=== PATIENT | female | born 1950 | race Caucasian/White ===

== ENCOUNTER → 2017-02-14 | Outpatient (CLI) | payer MEDICARE ==
--- NOTE | 2017-02-14 20:32 | BD ---
EXAMINATION TYPE: MG DEXA axial skeleton. DATE OF EXAM: 02/14/2017 7:34 AM COMPARISON: NONE CLINICAL HISTORY: 66-year-old female asymptomatic postmenopausal state Height: 65 Weight: 185.1 FRAX RISK QUESTIONS: Alcohol (3 or more units per day): no Family History (Parent hip fracture): yes-mother Glucocorticoids (More than 3mos): no (Ex: prednisone, prednisolone, methylprednisolone, dexamethasone, and hydrocortisone). History of Fracture in Adulthood: yes Secondary Osteoporosis: 1. Type 1 Diabetes: no 2. Hyperthyroidism: no 3. Menopause before 45: no 4. Malnutrition: no 5. Chronic liver disease: no Rheumatoid Arthritis: no Current Tobacco Use: no RISK FACTORS HISTORY OF: Hip Fracture (Right/Left): no Spine Fracture: no History of Wrist Fracture: no Surgery to Spine/Hip(right/left)/Wrist (right/left): no Family History of Osteoporosis: yes Active: yes Diet low in dairy products/other sources of calcium: no Postmenopausal woman: age 51 Lost more than 2 inches in height since high school: no Frequent falls: no Adrenal Insufficiency: no MEDICATIONS: Thyroid Medications: thyroid How Lon years Additional Medications: lisinopril, htz, potassium, simvastatin, calcium EXAM MEASUREMENTS: Bone mineral densitometry was performed using the [employer]. Bone mineral density as measured about the Lumbar spine is: ----- L1-L4(G/cm2): 1.345 T Score Values are as follows: ----- L2: 0.5 ----- L3: 2.0 ----- L4: 2.4 ----- L1-L4: 1.4 Bone mineral density has: increased 1.9 % since study of: 12.16.2014 Bone mineral density about the R hip (g/cm2): 0.930 Bone mineral density about the L hip (g/cm2): 0.960 T Score values are as follows: -----R Neck: -0.8 -----L Neck: -0.6 -----R Intertrochanter: -0.7 -----L Intertrochanter: -1.4 Bone mineral density has: increased 0.7 % since study of: 12.16.2014 IMPRESSION: Normal (Values between +1 and -1 indicate normal bone mass). Rescreen in 5 years. NOTE: T-SCORE=SD OF THE YOUNG ADULT MEAN.
--- NOTE | 2017-02-15 12:38 | MM ---
Reason for exam: screening (asymptomatic). Last mammogram was performed 1 year and 1 month ago. History: Patient is postmenopausal. Benign excisional biopsy of the left breast. Physical Findings: A clinical breast exam by your physician is recommended on an annual basis and results should be correlated with mammographic findings. MG Screening Mammo w CAD Bilateral CC and MLO view(s) were taken. Prior study comparison: January 26, 2016, bilateral MG screening mammo w CAD. December 16, 2014, bilateral MG screening mammo w CAD. There are scattered fibroglandular densities. Scattered benign round calcifications bilaterally. No significant changes when compared with prior studies. ASSESSMENT: Negative, BI-RAD 1 RECOMMENDATION: Routine screening mammogram of both breasts in 1 year.
== END | disposition home or self-care (01) ==
LOC: RADMAMWWP 07:29
PROVIDERS: ATTEND Family Medicine
DX: Z12.31 Encounter for screening mammogram for malignant neoplasm of breast (principal); Z78.0 Asymptomatic menopausal state
CPT/HCPCS: 77080; G0202

== ENCOUNTER → 2018-02-27 | Outpatient (CLI) | payer MEDICARE ==
--- NOTE | 2018-02-28 13:23 | MM ---
Reason for exam: screening (asymptomatic). Last mammogram was performed 1 year ago. History: Patient is postmenopausal. Benign excisional biopsy of the left breast. Physical Findings: A clinical breast exam by your physician is recommended on an annual basis and results should be correlated with mammographic findings. MG Screening Mammo w CAD Bilateral CC and MLO view(s) were taken. Prior study comparison: February 14, 2017, bilateral MG screening mammo w CAD. January 26, 2016, bilateral MG screening mammo w CAD. There are scattered fibroglandular densities. Finding: There are typically benign diffuse/scattered calcifications in both breasts. No suspicious abnormality. No significant changes in finding since February 14, 2017 and January 26, 2016. ASSESSMENT: Benign, BI-RAD 2 RECOMMENDATION: Routine screening mammogram of both breasts in 1 year.
== END | disposition home or self-care (01) ==
LOC: RADMAMWWP 07:05
PROVIDERS: ATTEND Family Medicine
DX: Z12.31 Encounter for screening mammogram for malignant neoplasm of breast (principal)
CPT/HCPCS: 77067

== ENCOUNTER → 2019-03-03 | Outpatient (CLI) | payer MEDICARE ==
--- NOTE | 2019-03-03 11:52 | BD ---
EXAMINATION TYPE: Axial Bone Density DATE OF EXAM: 03/03/2019 COMPARISON: 2017 CLINICAL HISTORY: asymptomatic menopause Height: 5'4 1/2 Weight: 164 FRAX RISK QUESTIONS: Family History (Parent hip fracture): y History of Fracture in Adulthood: y Secondary Osteoporosis: RISK FACTORS HISTORY OF: Family History of Osteoporosis: Y Postmenopausal woman: y If Premenopausal, do you have irregular periods: Take estrogen and/or progesterone medications: How long: Lost more than 2 inches in height since high school: MEDICATIONS: Thyroid Medications: Which medication: Levothyroxine How Lon years Additional Medications: blood pressure, potassium, cholesterol Additional History: EXAM MEASUREMENTS: Bone mineral densitometry was performed using the [employer] System. Bone mineral density as measured about the Lumbar spine is: ----- L1-L4(G/cm2): 1.337 T Score Values are as follows: ----- L2: 0.9 ----- L3: 1.5 ----- L4: 2.7 ----- L1-L4:1.3 Bone mineral density has: Decreased -0.2% since study of: 02/14/2017 Bone mineral density about the R hip (g/cm2): 0.877 Bone mineral density about the L hip (g/cm2): 0.944 T Score values are as follows: -----R Neck: -1.2 -----L Neck: -0.7 -----R Total: -1.1 -----L Total: -0.7 Bone mineral density has: Decreased -5.5% since study of: 02/14/2017 IMPRESSION: Osteopenia (T Score between -2.5 and -1). There is slightly increased risk of fracture and the patient may be considered for treatment. Re-Screen 2-5 years. NOTE: T-SCORE=SD OF THE YOUNG ADULT MEAN.
--- NOTE | 2019-03-04 10:22 | MM ---
Reason for exam: screening (asymptomatic). Last mammogram was performed 1 year ago. History: Patient is postmenopausal. Benign excisional biopsy of the left breast. Physical Findings: A clinical breast exam by your physician is recommended on an annual basis and results should be correlated with mammographic findings. MG Screening Mammo w CAD Bilateral CC and MLO view(s) were taken. Prior study comparison: February 27, 2018, bilateral MG screening mammo w CAD. February 14, 2017, bilateral MG screening mammo w CAD. There are scattered fibroglandular densities. Benign appearing bilateral calcifications. No suspicious abnormality. No significant changes when compared with prior studies. ASSESSMENT: Benign, BI-RAD 2 RECOMMENDATION: Routine screening mammogram of both breasts in 1 year.
== END | disposition home or self-care (01) ==
LOC: RADMAMWWP 08:00
PROVIDERS: ATTEND Family Medicine
DX: Z12.31 Encounter for screening mammogram for malignant neoplasm of breast (principal); M85.80 Other specified disorders of bone density and structure, unspecified site; Z78.0 Asymptomatic menopausal state
CPT/HCPCS: 77067; 77080

== ENCOUNTER 2020-03-08 17:46 | Inpatient (IN) | payer MEDICARE ==
[2020-03-08] MEDS ORDERED: SODIUM CHLORIDE 0.9% 1,000 ML IV STA (18:06)
[2020-03-08] MEDS ORDERED: ACETAMINOPHEN TAB 325 MG TAB PO STA (18:07)
[2020-03-08 18:47] LABS: Basophils # (A) 0.1 k/uL (0-0.2); Basophils % (A) 0 %; Eosinophils # (A) 0.2 k/uL (0-0.7); Eosinophils % (A) 1 %; HCT 36.4 % (34.0-46.0); Lymphocytes # (A) 0.9 k/uL (1.0-4.8); Lymphocytes % (A) 6 %; MCH 30.9 pg (25.0-35.0); MCV 93.6 fL (80.0-100.0); Mean Platelet Volume 7.3; Monocytes # (A) 0.6 k/uL (0-1.0); Monocytes % (A) 4 %; Neutrophils # (A) 13.4 k/uL (1.3-7.7); Neutrophils % (A) 87 %; Platelet Count 474 k/uL (150-450); RBC 3.89 m/uL (3.80-5.40); RDW 12.6 % (11.5-15.5); WBC 15.4 k/uL (3.8-10.6)
[2020-03-08 19:07] LABS: ALT 51 U/L (4-34); AST 44 U/L (14-36); African American GFR (CKD) >90 (>60 ml/min/1.73 sqM); Albumin 3.2 g/dL (3.5-5.0); Alkaline Phosphatase 102 U/L (38-126); Amylase 34 U/L (30-110); Anion Gap 10 mmol/L; Blood Urea Nitrogen 6 mg/dL (7-17); Carbon Dioxide 23 mmol/L (22-30); Chloride 98 mmol/L (98-107); Glucose 112 mg/dL (74-99); Non-African American GFR(CKD) >90 (>60 ml/min/1.73 sqM); Potassium 3.7 mmol/L (3.5-5.1); Sodium 131 mmol/L (137-145); Total Bilirubin 0.8 mg/dL (0.2-1.3)
[2020-03-08 19:18] LABS: Appearance,Urine Clear (Clear); Bilirubin,Urine Negative (Negative); Blood,Urine Small (Negative); Color,Urine Yellow; Glucose,Urine (UA) Negative (Negative); Hyaline Casts,Urine 1 /lpf (0-2); Ketones,Urine Negative (Negative); Leukocyte Esterase,Urine Small (Negative); Mucus,Urine Few /hpf; Nitrite,Urine Negative (Negative); PH, Urine 6.5 (5.0-8.0); Protein,Urine Trace (Negative); RBC,Urine 10 /hpf (0-5); Specific Gravity,Urine 1.013 (1.001-1.035); Squamous Epithelial Cell,Urine 3 /hpf (0-4); WBC,Urine 9 /hpf (0-5)
--- NOTE | 2020-03-08 19:27 | ED ---
Abdominal Pain HPI - General Source: patient, RN notes reviewed Mode of arrival: ambulatory Limitations: no limitations <Loi Toussaint - Last Filed: 03/08/20 20:10> <Georgia Lutz - Last Filed: 03/12/20 00:02> - General Chief Complaint: Abdominal Pain Stated Complaint: Diarrhea Time Seen by Provider: 03/08/20 17:58 - History of Present Illness Initial Comments: This is a 69-year-old female presents emergency Department chief complaint of abdominal pain. Patient states she is seen approximately 9 days ago in urgent care for UTI. Patient has been taken Ceftin here. Patient states that she is towards the end of her course and states that she's had increase abdominal pain, fever. She states it's right lower quadrant abdominal pain. She does have a history of diverticulosis. She had intermittent nausea, dry heaving and diarrhea denies any melena or hematochezia. Patient denies any chest pain, shortness breath, headache or dizziness. Patient is concerned about possible acute sinusitis. Patient states that her dysuria has resolved. (Loi Toussaint) - Related Data Home Medications Medication Instructions Recorded Confirmed Hydrochlorothiazide [Hydrodiuril] 50 mg PO DAILY@1500 02/18/14 03/08/20 Levothyroxine Sodium [Synthroid] 88 mcg PO DAILY 02/18/14 03/08/20 Lisinopril [Zestril] 5 mg PO DAILY@1500 02/18/14 03/08/20 Potassium Chloride 20 meq PO DAILY@1500 02/18/14 03/08/20 Simvastatin [Zocor] 20 mg PO HS 02/18/14 03/08/20 Aspirin 325 mg PO HS 03/08/20 03/08/20 Cefdinir [Omnicef] 300 mg PO Q12H 03/08/20 03/08/20 Allergies Allergy/AdvReac Type Severity Reaction Status Date / Time adhesive Allergy Rash/Hives Verified 03/08/20 19:25 Review of Systems ROS Other: All systems not noted in ROS Statement are negative. <Loi Toussaint - Last Filed: 03/08/20 20:10> ROS Other: All systems not noted in ROS Statement are negative. <Georgia Lutz - Last Filed: 03/12/20 00:02> ROS Statement: Those systems with pertinent positive or pertinent negative responses have been documented in the HPI. Past Medical History Past Medical History: Hyperlipidemia, Hypertension Additional Past Medical History / Comment(s): + HEPATITIS B History of Any Multi-Drug Resistant Organisms: None Reported Past Surgical History: Section, Tubal Ligation Additional Past Surgical History / Comment(s): breast cyst removed - left Past Anesthesia/Blood Transfusion Reactions: No Reported Reaction Smoking Status: Never smoker Past Alcohol Use History: None Reported Past Drug Use History: None Reported - Past Family History Mother Family Medical History: Cancer Father Family Medical History: Cancer <Loi Toussaint - Last Filed: 03/08/20 20:10> General Exam Limitations: no limitations General appearance: alert, in no apparent distress Head exam: Present: atraumatic, normocephalic, normal inspection Eye exam: Present: normal appearance, PERRL, EOMI. Absent: scleral icterus, conjunctival injection, periorbital swelling Neck exam: Present: normal inspection. Absent: tenderness, meningismus, lymphadenopathy Respiratory exam: Present: normal lung sounds bilaterally. Absent: respiratory distress, wheezes, rales, rhonchi, stridor Cardiovascular Exam: Present: regular rate, normal rhythm, normal heart sounds. Absent: systolic murmur, diastolic murmur, rubs, gallop, clicks GI/Abdominal exam: Present: soft, tenderness (Moderate right lower quadrant tenderness), normal bowel sounds. Absent: distended, guarding, rebound, rigid Back exam: Absent: CVA tenderness (R), CVA tenderness (L) Neurological exam: Present: alert, oriented X3, CN II-XII intact Skin exam: Present: warm, dry, intact, normal color. Absent: rash <Loi Toussaint - Last Filed: 03/08/20 20:10> Course Vital Signs 03/08/20 03/08/20 03/08/20 17:50 19:30 21:15 Temperature 100.8 F H 98.7 F 98.2 F Pulse Rate 99 75 80 Respiratory 18 16 16 Rate Blood Pressure 152/78 146/77 148/80 O2 Sat by Pulse 99 98 98 Oximetry Medical Decision Making - Lab Data Result diagrams: 03/08/20 18:23 03/08/20 18:23 <Loi Toussaint - Last Filed: 05/19/20 20:10> - Lab Data Result diagrams: 03/11/20 09:18 03/11/20 09:18 <Georgia Lutz - Last Filed: 03/12/20 00:02> - Medical Decision Making CT is obtained which shows Moderate inflammatory changes throughout the lower abdomen and pelvis suspicious for 7.7 cm debris-filled structure right mid pelvis with air fluid level worrisome for intrapelvic abscess. Labs does show mild crepitus, febrile. Patient was started on broad-spectrum antibiotics. Patient will be admitted for further evaluation and management. (Loi Toussaint) I was available for consultation in the emergency department. The history and p hysical exam were done by the midlevel provider. I was consulted for this patients care. I reviewed the case with the midlevel provider and based on their presentation of the patient, I agree with the assessment, medical decision making and plan of care as documented. I spoke with Dr. Cruz who accepted admission of the patient. Chart was dictated using [employer] dictation software. Attempts were made to correct any dictation errors however some typographical errors may persist. Patient was seen during a national state of emergency due to the Covid-19 pandemic. (Georgia Lutz) - Lab Data Lab Results 03/08/20 03/08/20 03/08/20 Range/Units 18:23 18:23 18:23 WBC 15.4 H (3.8-10.6) k/uL RBC 3.89 (3.80-5.40) m/uL Hgb 12.0 (11.4-16.0) gm/dL Hct 36.4 (34.0-46.0) % MCV 93.6 (80.0-100.0) fL MCH 30.9 (25.0-35.0) pg MCHC 33.0 (31.0-37.0) g/dL RDW 12.6 (11.5-15.5) % Plt Count 474 H (150-450) k/uL Neutrophils % 87 % Lymphocytes % 6 % Monocytes % 4 % Eosinophils % 1 % Basophils % 0 % Neutrophils # 13.4 H (1.3-7.7) k/uL Lymphocytes # 0.9 L (1.0-4.8) k/uL Monocytes # 0.6 (0-1.0) k/uL Eosinophils # 0.2 (0-0.7) k/uL Basophils # 0.1 (0-0.2) k/uL Sodium 131 L (137-145) mmol/L Potassium 3.7 (3.5-5.1) mmol/L Chloride 98 (98-107) mmol/L Carbon Dioxide 23 (22-30) mmol/L Anion Gap 10 mmol/L BUN 6 L (7-17) mg/dL Creatinine 0.55 (0.52-1.04) mg/dL Est GFR (CKD-EPI)AfAm >90 (>60 ml/min/1.73 sqM) Est GFR (CKD-EPI)NonAf >90 (>60 ml/min/1.73 sqM) Glucose 112 H (74-99) mg/dL Plasma Lactic Acid Darion (0.7-2.0) mmol/L Calcium 8.0 L (8.4-10.2) mg/dL Total Bilirubin 0.8 (0.2-1.3) mg/dL AST 44 H (14-36) U/L ALT 51 H (4-34) U/L Alkaline Phosphatase 102 (38-126) U/L Total Protein 6.0 L (6.3-8.2) g/dL Albumin 3.2 L (3.5-5.0) g/dL Amylase 34 (30-110) U/L Lipase 50 (23-300) U/L Urine Color Yellow Urine Appearance Clear (Clear) Urine pH 6.5 (5.0-8.0) Ur Specific [place] 1.013 (1.001-1.035) Urine Protein Trace H (Negative) Urine Glucose (UA) Negative (Negative) Urine Ketones Negative (Negative) Urine Blood Small H (Negative) Urine Nitrite Negative (Negative) Urine Bilirubin Negative (Negative) Urine Urobilinogen 3.0 (<2.0) mg/dL Ur Leukocyte Esterase Small H (Negative) Urine RBC 10 H (0-5) /hpf Urine WBC 9 H (0-5) /hpf Ur Squamous Epith Cells 3 (0-4) /hpf Hyaline Casts 1 (0-2) /lpf Urine Mucus Few H (None) /hpf Blood Type Confirm 03/08/20 03/08/20 Range/Units 18:23 18:23 WBC (3.8-10.6) k/uL RBC (3.80-5.40) m/uL Hgb (11.4-16.0) gm/dL Hct (34.0-46.0) % MCV (80.0-100.0) fL MCH (25.0-35.0) pg MCHC (31.0-37.0) g/dL RDW (11.5-15.5) % Plt Count (150-450) k/uL Neutrophils % % Lymphocytes % % Monocytes % % Eosinophils % % Basophils % % Neutrophils # (1.3-7.7) k/uL Lymphocytes # (1.0-4.8) k/uL Monocytes # (0-1.0) k/uL Eosinophils # (0-0.7) k/uL Basophils # (0-0.2) k/uL Sodium (137-145) mmol/L Potassium (3.5-5.1) mmol/L Chloride (98-107) mmol/L Carbon Dioxide (22-30) mmol/L Anion Gap mmol/L BUN (7-17) mg/dL Creatinine (0.52-1.04) mg/dL Est GFR (CKD-EPI)AfAm (>60 ml/min/1.73 sqM) Est GFR (CKD-EPI)NonAf (>60 ml/min/1.73 sqM) Glucose (74-99) mg/dL Plasma Lactic Acid [place] 1.0 (0.7-2.0) mmol/L Calcium (8.4-10.2) mg/dL Total Bilirubin (0.2-1.3) mg/dL AST (14-36) U/L ALT (4-34) U/L Alkaline Phosphatase (38-126) U/L Total Protein (6.3-8.2) g/dL Albumin (3.5-5.0) g/dL Amylase (30-110) U/L Lipase (23-300) U/L Urine Color Urine Appearance (Clear) Urine pH (5.0-8.0) Ur Specific [place] (1.001-1.035) Urine Protein (Negative) Urine Glucose (UA) (Negative) Urine Ketones (Negative) Urine Blood (Negative) Urine Nitrite (Negative) Urine Bilirubin (Negative) Urine Urobilinogen (<2.0) mg/dL Ur Leukocyte Esterase (Negative) Urine RBC (0-5) /hpf Urine WBC (0-5) /hpf Ur Squamous Epith Cells (0-4) /hpf Hyaline Casts (0-2) /lpf Urine Mucus (None) /hpf Blood Type Confirm B Positive Disposition <Loi Toussaint - Last Filed: 03/08/20 20:10> <Georgia Lutz - Last Filed: 03/12/20 00:02> Clinical Impression: Intra-abdominal abscess, Abdominal pain Disposition: ADMITTED IP TO THIS HOSP Condition: Fair
--- NOTE | 2020-03-08 20:09 | CT ---
EXAMINATION TYPE: CT abdomen pelvis w con DATE OF EXAM: 03/08/2020 HISTORY: Generalized pain with diarrhea. CT DLP: 911.8mGycm Automated Exposure Control for Dose Reduction was Utilized. CONTRAST: CT scan of the abdomen and pelvis is performed without oral but with IV Contrast, patient injected wi th 100 mL of Isovue 300. COMPARISON: None. FINDINGS: LUNG BASES: Trace right pleural effusion with associated right basilar compressive atelectasis and/or limited consolidation. Compressive atelectasis left lung base just above the diaphragm also present. LIVER/GB: Liver low dense relative to spleen suggesting diffuse fatty infiltration. PANCREAS: No significant abnormality is seen. SPLEEN: No significant abnormality is seen. ADRENALS: No significant abnormality is seen. KIDNEYS: Slight asymmetric diminished size to right kidney. There is symmetric cortical medullary upt tadeo and excretion without hydronephrosis seen bilaterally. Urinary bladder mildly distended extending anteriorly to left of midline. BOWEL: Suboptimal evaluation of bowel without enteric contrast. No suspicious small or large bowel di latation in the upper to mid abdomen. Working backwards there is mild wall thickening and poor disten tion of majority of colon up to level of low-lying cecum in the right pelvis. Terminal ileum thought within normal limits coronal image 38 above a dilated structure with air-fluid level and internal gabby ris. There is surrounding soft tissue suspected normal cecum and adjacent small bowel loops being com pressed by this prominent debris filled lesion with air-fluid level. This measures roughly 7.7 x 7.4 x 7.7 cm segment 63 and coronal image 43. Cannot exclude smaller adjacent fluid collections as it is impossible to differentiate from adjacent bowel loops. There is moderate well-defined fluid and fat s tranding throughout the lower abdomen and pelvis. There is air-fluid level in prominent mildly dilate d small bowel loop in the left lower abdomen/upper pelvis measuring up to 3.6 cm in diameter coronal image 39 for reference. UTERUS/ADNEXA: Poor visualization of uterus LYMPH NODES: No greater than 1cm abdominal or pelvic lymph nodes are appreciated. OSSEOUS STRUCTURES: Mild multilevel disc space narrowing and spurring. Facet arthropathy mid to lower lumbar levels. OTHER: No significant additional abnormality is seen. IMPRESSION: Suboptimal study due to lack of enteric contrast. Overall nonspecific but likely nonobstr uctive bowel gas pattern. There is evidence of wijz-da-hibalhav inflammatory change through the lower abdomen and pelvis. There is suspicious 7.7 cm debris-filled structure right mid pelvis with air flu id level worrisome for intrapelvic abscess. Etiology uncertain. No definitive free air. Cannot exclud e smaller adjacent abscesses. Correlate clinically. Further investigation with CT with oral contrast may be beneficial.
[2020-03-08] MEDS ORDERED: PIPERACILLIN-TAZOBACTAM 3.375 GM in SODIUM CHLORIDE 0.9% 100 ML IVPB STA (20:10)
[2020-03-08] MEDS ORDERED: NALOXONE 0.4 MG/ML 1 ML VIAL IV PRN (20:16)
[2020-03-08] MEDS ORDERED: ONDANSETRON 4 MG/2 ML VIAL IVP PRN (20:16)
[2020-03-08] MEDS: SODIUM CHLORIDE 0.9% 1,000 ML IV SCH (21:06)
[2020-03-09] MEDS ORDERED: LACTATED RINGERS 1,000 ML IV ONE ×4 (00:55→14:59)
[2020-03-09] MEDS: LEVOTHYROXINE 88 MCG TAB PO SCH (05:17)
[2020-03-09] MEDS: SODIUM CHLORIDE 0.9% 1,000 ML IV SCH ×3 (05:26→18:58)
[2020-03-09] MEDS: PIPERACILLIN-TAZOBACTAM 3.375 GM in SODIUM CHLORIDE 0.9% 100 ML IVPB SCH ×3 (07:46→23:16)
--- NOTE | 2020-03-09 11:18 | P.GSHP ---
History of Present Illness H&P Date: 03/09/20 CHIEF COMPLAINT: Abdominal pain HISTORY OF PRESENT ILLNESS: 69-year-old female who presented to emergency room with a chief complaint of abdominal pain. Patient reports she has a history of diverticulosis/diverticulitis. She reports she began having abdominal pain about 2 or 3 weeks ago. Pain is in the lower abdomen, right greater than left. She currently denies nausea or vomiting. PAST MEDICAL HISTORY: See list. PAST SURGICAL HISTORY: See list. SOCIAL HISTORY: No illicit drug use. REVIEW OF SYSTEMS: CONSTITUTIONAL: Denies fever or chills. HEENT: Denies blurred vision, vision changes, or eye pain. Denies hemoptysis CARDIOVASCULAR: Denies chest pain or pressure. RESPIRATORY: No shortness of breath. GASTROINTESTINAL: Refer to [facility] for pertinent findings HEMATOLOGIC: Denies bleeding disorders. GENITOURINARY: Denies any blood in urine. SKIN: Denies pruitis. Denies rash. PHYSICAL EXAM: VITAL SIGNS: Reviewed. GENERAL: Well-developed in no acute distress. HEENT: No sclera icterus. Extraocular movements grossly intact. Moist buccal mucosa. Head is atraumatic, normocephalic. ABDOMEN: Soft. Nondistended. Tenderness upon palpation of lower mid and right quadrants. NEUROLOGIC: Alert and oriented. Cranial nerves II through XII grossly intact. LABORATORY DATA: W BC 15.1. Hemoglobin 12.0. Platelet count 474. IMAGING: CT abdomen and pelvis: Overall nonspecific but likely nonobstructive bowel gas pattern. Evidence of mild to moderate inflammatory changes throughout the lower abdomen and pelvis. Suspicious 7.7 cm debris-filled structure right mid pelvis with air-fluid level increased worrisome of intrapelvic abscess. No definite free air. ASSESSMENT: 1. Abdominal pain 2. Intrapelvic abscess, suspect secondary to diverticulitis PLAN: -NPO. Continue IVF -Monitor WBC. Continue antibiotics. Consult infectious disease -Patient scheduled for exploratory laparotomy, drainage of pelvic abscess, possible colectomy, possible colostomy today with Dr. Cruz Nurse practitioner note has been reviewed by physician. Signing provider agrees with the documented findings, assessment, and plan of care. Past Medical History Past Medical History: Hyperlipidemia, Hypertension Additional Past Medical History / Comment(s): + HEPATITIS B History of Any Multi-Drug Resistant Organisms: None Reported Past Surgical History: Section, Tonsillectomy, Tubal Ligation Additional Past Surgical History / Comment(s): Breast cyst removed - left Past Anesthesia/Blood Transfusion Reactions: No Reported Reaction Past Psychological History: No Psychological Hx Reported Smoking Status: Never smoker Past Alcohol Use History: None Reported Past Drug Use History: None Reported - Past Family History Mother Family Medical History: Cancer Father Family Medical History: Cancer Medications and Allergies Home Medications Medication Instructions Recorded Confirmed Type Hydrochlorothiazide [Hydrodiuril] 50 mg PO DAILY@1500 02/18/14 03/08/20 History Levothyroxine Sodium [Synthroid] 88 mcg PO DAILY 02/18/14 03/08/20 History Lisinopril [Zestril] 5 mg PO DAILY@1500 02/18/14 03/08/20 History Potassium Chloride 20 meq PO DAILY@1500 02/18/14 03/08/20 History Simvastatin [Zocor] 20 mg PO HS 02/18/14 03/08/20 History Aspirin 325 mg PO HS 03/08/20 03/08/20 History Cefdinir [Omnicef] 300 mg PO Q12H 03/08/20 03/08/20 History Allergies Allergy/AdvReac Type Severity Reaction Status Date / Time adhesive Allergy Rash/Hives Verified 03/08/20 19:25 Surgical - Exam Vital Signs Temp Pulse Resp BP Pulse Ox 100.8 F H 99 18 152/78 99 03/08/20 17:50 03/08/20 17:50 03/08/20 17:50 03/08/20 17:50 03/08/20 17:50 Results - Labs 03/08/20 18:23 03/08/20 18:23 Abnormal Lab Results - Last 24 Hours (Table) 03/08/20 03/08/20 03/08/20 Range/Units 18:23 18:23 18:23 WBC 15.4 H (3.8-10.6) k/uL Plt Count 474 H (150-450) k/uL Neutrophils # 13.4 H (1.3-7.7) k/uL Lymphocytes # 0.9 L (1.0-4.8) k/uL Sodium 131 L (137-145) mmol/L BUN 6 L (7-17) mg/dL Glucose 112 H (74-99) mg/dL Calcium 8.0 L (8.4-10.2) mg/dL AST 44 H (14-36) U/L ALT 51 H (4-34) U/L Total Protein 6.0 L (6.3-8.2) g/dL Albumin 3.2 L (3.5-5.0) g/dL Urine Protein Trace H (Negative) Urine Blood Small H (Negative) Ur Leukocyte Esterase Small H (Negative) Urine RBC 10 H (0-5) /hpf Urine WBC 9 H (0-5) /hpf Urine Mucus Few H (None) /hpf Diabetes panel 03/08/20 Range/Units 18:23 Sodium 131 L (137-145) mmol/L Potassium 3.7 (3.5-5.1) mmol/L Chloride 98 (98-107) mmol/L Carbon Dioxide 23 (22-30) mmol/L BUN 6 L (7-17) mg/dL Creatinine 0.55 (0.52-1.04) mg/dL Glucose 112 H (74-99) mg/dL Calcium 8.0 L (8.4-10.2) mg/dL AST 44 H (14-36) U/L ALT 51 H (4-34) U/L Alkaline Phosphatase 102 (38-126) U/L Total Protein 6.0 L (6.3-8.2) g/dL Albumin 3.2 L (3.5-5.0) g/dL Calcium panel 03/08/20 Range/Units 18:23 Calcium 8.0 L (8.4-10.2) mg/dL Albumin 3.2 L (3.5-5.0) g/dL Pituitary panel 03/08/20 Range/Units 18:23 Sodium 131 L (137-145) mmol/L Potassium 3.7 (3.5-5.1) mmol/L Chloride 98 (98-107) mmol/L Carbon Dioxide 23 (22-30) mmol/L BUN 6 L (7-17) mg/dL Creatinine 0.55 (0.52-1.04) mg/dL Glucose 112 H (74-99) mg/dL Calcium 8.0 L (8.4-10.2) mg/dL Adrenal panel 03/08/20 Range/Units 18:23 Sodium 131 L (137-145) mmol/L Potassium 3.7 (3.5-5.1) mmol/L Chloride 98 (98-107) mmol/L Carbon Dioxide 23 (22-30) mmol/L BUN 6 L (7-17) mg/dL Creatinine 0.55 (0.52-1.04) mg/dL Glucose 112 H (74-99) mg/dL Calcium 8.0 L (8.4-10.2) mg/dL Total Bilirubin 0.8 (0.2-1.3) mg/dL AST 44 H (14-36) U/L ALT 51 H (4-34) U/L Alkaline Phosphatase 102 (38-126) U/L Total Protein 6.0 L (6.3-8.2) g/dL Albumin 3.2 L (3.5-5.0) g/dL
[2020-03-09] MEDS ORDERED: ONDANSETRON 4 MG/2 ML VIAL IVP ONE (12:23)
[2020-03-09] MEDS ORDERED: DEXAMETHASONE SOD PHOSPHATE 10 MG/ML 1 ML VIAL IV ONE (12:24)
[2020-03-09] MEDS ORDERED: LIDOCAINE 1% INJ 10MG/ML (20 ML MDV) ONE (13:50)
[2020-03-09] MEDS: HEPARIN SODIUM,PORCINE 5,000 UNIT/ML 1 ML VIAL SQ SCH ×2 (13:50→23:15)
[2020-03-09] MEDS ORDERED: HYDROmorphone (PF) 1 MG/ML ONE (13:50)
[2020-03-09] MEDS ORDERED: fentaNYL (PF) 50 MCG/ML 2 ML AMP ONE (13:50)
[2020-03-09] MEDS ORDERED: GLYCOPYRROLATE 0.2 MG/ML 2 ML VIAL ONE (13:50)
[2020-03-09] MEDS ORDERED: NEOSTIGMINE 1 MG/ML 10 ML VIAL ONE (13:50)
[2020-03-09] MEDS ORDERED: PROPOFOL 10 MG/ML 20 ML VIAL IV ONE (13:50)
[2020-03-09] MEDS ORDERED: SUCCINYLCHOLINE CHLORIDE 100 MG/5 ML SYR IV ONE (13:50)
[2020-03-09] MEDS ORDERED: MIDAZOLAM 2 MG/2 ML VIAL ONE (13:50)
[2020-03-09] MEDS ORDERED: ROCURONIUM BROMIDE 10 MG/ML 5 ML VIAL IV ONE (13:50)
--- NOTE | 2020-03-09 15:22 | P.OP ---
Date of Procedure: 03/09/20 Preoperative Diagnosis: Pelvic abscess Postoperative Diagnosis: Pelvic abscess adjacent to cecum and terminal ileum, questionable appendicitis Procedure(s) Performed: Ileocolectomy Drainage of pelvic Culture pelvic abscess Anesthesia: DHIRAJ Surgeon: Jerad Cruz Estimated Blood Loss (ml): 100 Pathology: other (Ileocolectomy, abscess culture) Condition: stable Disposition: PACU Description of Procedure: The patient's placed on the operative table in supine position. She received general anesthesia. Her abdomen was prepped and draped usual sterile fashion. There was entered through a low midline incision. Upon entering the peritoneal cavity there was a large inflammatory mass in the pelvis the right side. The small bowel was adherent to the mass. The small bowel adhesions were lysed. The mass was entered and it was a large pelvic abscess. There was creamy white pus within the abscess. This was cultured. And irrigated there is approximately 200 mL of pus. At this point the abscess cavities examined. Adherent to the cecum and terminal ileum suggestive of a chronic appendicitis. At this point approximately 20 minutes of operative time used to lyse adhesions to the small bowel in the pelvis with sharp dissection. The right colon was mobilized. The right colon was then transected with a GI stapler. And then the ileum was transected with a GI stapler. Using Enseal device the mesentery the bowel was divided. A [id number] functional end-to-end staple anastomosis was created using the WOODY and TA stapler. A 3-0 GI silk sutures as a crotch stitch. The abdomen was irrigated is no bleeding seen. A GARCÍA drains placed in the right pelvic fossa and brought out through a stab incision abdominal wall. The fascia is closed loop #1 PDS suture. Skin was loosely closed. There were several Telfa kaleb placed the wound. Sterile dressing applied. Patient top she will was sent to recovery in stable condition.
[2020-03-09] MEDS: HYDROmorphone 1 MG/ML 1 ML SYRINGE IVP ONE ×2 (15:35→15:44)
--- NOTE | 2020-03-09 16:23 | P.CONS ---
History of Present Illness - Reason for Consult Consult date: 03/09/20 Medical management Requesting physician: Jerad Cruz - Chief Complaint Abdominal pain - History of Present Illness Consultation: Patient is seen by me this morning. This is a pleasant 69-year-old patient of Dr. Wei. Chronic stable medical conditions include hyperlipidemia, hypertension, hypothyroid. Patient was treated for hepatitis B in the past. For 2 weeks patient been having right lower quadrant pain progressively getting worse. She was treated by her PCP for UTI in the meantime. Patient started having fever and chills. Nausea. The pain was intermittently getting worse. Predominantly the right lower quadrant. Presented to the ER. Computed yenifer ography scan the ER showed a probable abscess. Patient's earlier seen by Dr. Cruz from general surgery. This is going down for surgery this afternoon. Patient otherwise rather active and no cardiac history. Denies any chest pain or shortness of breath. Good exercise tolerance. Review of systems: GEN.: Tired, fever, chills EYES: None HEENT: None NECK: None RESPIRATORY: None CARDIOVASCULAR: None GASTROINTESTINAL: As above GENITOURINARY: None MUSCULOSKELETAL: Joint pains LYMPHATICS: None HEMATOLOGICAL: None PSYCHIATRY: None NEUROLOGICAL: None Past medical history to include: Hypertension, hyperlipidemia, hypothyroid, osteoarthritis, rosacea, hepatitis B that was treated Social history: Does not smoke or drink" alcohol. Lives with her son.. Family history: Cancer Physical examination: VITAL SIGNS: 100.8, 99, 18, 150-78, 99% on room air GENERAL: BMI 19.4, laying in bed, awake a bit uncomfortable. EYES: Pupils equal. Conjunctiva normal. HEENT: External appearance of nose and ears normal, oral cavity grossly normal. NECK: JVD not raised; masses not palpable. HEART: First and second heart sounds are normal; no edema. LUNGS: Respiratory rate normal; clear to auscultation. ABDOMEN: Soft, right lower quadrant tenderness, no guarding or rigidity, liver spleen not palpable, no masses palpable MUSCULOSKELETAL-evidence of OA especially in the hands and knees. PSYCH: Alert and oriented x3; mood and affect normal. NEUROLOGICAL: Cranial nerves grossly intact; no facial asymmetry, power and sensation grossly intact. LYMPHATICS: No lymph nodes palpable in the axilla and neck INVESTIGATIONS, reviewed in the clinical context: White count 15.4 hemoglobin 12 platelets 474 potassium 3.7 creatinine 6 AST 44 ALT 51 COVID-19 PCR-not detected Computed tomography scan of the abdomen and pelvis-suspected abscess 0.7 X 7.4 X 7.7 CM. SHOWING MODERATE WELL-DEFINED FLUID AND FAT SURROUNDING. ASSESSMENT: -This is a patient presents with 2 weeks of progressive pain in the right lower quadrant fever chills nausea and a white count. Computed tomography scan is showing an abscess in that area of a fair sized. Patient be taken down to the OR this afternoon. -Preoperative cardiovascular assessment-patient is a good exercise tolerance with no cardiac symptoms. From a patient's standpoint is a low risk with a moderate risk surgery. With no medical contact indications. -Hyperlipidemia -Essential hypertension -Hypothyroid - Plan: Care was discussed with the patient. Questions were answered. Home medications resumed. Subcu heparin for DVT prophylaxis. IV Zosyn has been started getting IV fluids. Thank you Dr. Cruz Past Medical History Past Medical History: Hyperlipidemia, Hypertension Additional Past Medical History / Comment(s): + HEPATITIS B History of Any Multi-Drug Resistant Organisms: None Reported Past Surgical History: Section, Tonsillectomy, Tubal Ligation Additional Past Surgical History / Comment(s): Breast cyst removed - left Past Anesthesia/Blood Transfusion Reactions: No Reported Reaction Past Psychological History: No Psychological Hx Reported Smoking Status: Never smoker Past Alcohol Use History: None Reported Past Drug Use History: None Reported - Past Family History Mother Family Medical History: Cancer Father Family Medical History: Cancer Medications and Allergies Home Medications Medication Instructions Recorded Confirmed Type Hydrochlorothiazide [Hydrodiuril] 50 mg PO DAILY@1500 02/18/14 03/08/20 History Levothyroxine Sodium [Synthroid] 88 mcg PO DAILY 02/18/14 03/08/20 History Lisinopril [Zestril] 5 mg PO DAILY@1500 02/18/14 03/08/20 History Potassium Chloride 20 meq PO DAILY@1500 02/18/14 03/08/20 History Simvastatin [Zocor] 20 mg PO HS 02/18/14 03/08/20 History Aspirin 325 mg PO HS 03/08/20 03/08/20 History Cefdinir [Omnicef] 300 mg PO Q12H 03/08/20 03/08/20 History Allergies Allergy/AdvReac Type Severity Reaction Status Date / Time adhesive Allergy Rash/Hives Verified 03/08/20 19:25 Physical Exam Vitals: Vital Signs Temp Pulse Pulse Resp BP BP Pulse Ox 03/09/20 07:00 99.0 F 82 15 219/67 94 L 03/09/20 02:22 98.3 F 85 18 132/81 91 L 03/08/20 21:34 98.5 F 77 18 119/71 95 03/08/20 21:15 98.2 F 80 16 148/80 98 03/08/20 19:30 98.7 F 75 16 146/77 98 03/08/20 17:50 100.8 F H 99 18 152/78 99 Intake and Output 03/08/20 03/09/20 03/09/20 22:59 06:59 14:59 Other: Voiding Method Toilet Toilet Weight 54.5 kg Results CBC & Chem 7: 03/08/20 18:23 03/08/20 18:23 Labs: Abnormal Lab Results - Last 24 Hours (Table) 03/08/20 03/08/20 03/08/20 Range/Units 18:23 18:23 18:23 WBC 15.4 H (3.8-10.6) k/uL Plt Count 474 H (150-450) k/uL Neutrophils # 13.4 H (1.3-7.7) k/uL Lymphocytes # 0.9 L (1.0-4.8) k/uL Sodium 131 L (137-145) mmol/L BUN 6 L (7-17) mg/dL Glucose 112 H (74-99) mg/dL Calcium 8.0 L (8.4-10.2) mg/dL AST 44 H (14-36) U/L ALT 51 H (4-34) U/L Total Protein 6.0 L (6.3-8.2) g/dL Albumin 3.2 L (3.5-5.0) g/dL Urine Protein Trace H (Negative) Urine Blood Small H (Negative) Ur Leukocyte Esterase Small H (Negative) Urine RBC 10 H (0-5) /hpf Urine WBC 9 H (0-5) /hpf Urine Mucus Few H (None) /hpf
[2020-03-09] MEDS: HYDROCHLOROTHIAZIDE 50 MG TAB PO SCH (16:34)
[2020-03-09] MEDS: LISINOPRIL 5 MG TAB PO SCH (16:35)
[2020-03-09] MEDS: POTASSIUM CHLORIDE ER 20 MEQ TAB.ER PO SCH (16:35)
[2020-03-09] MEDS: HYDROmorphone 0.5 MG/0.5 ML SYRINGE IVP PRN ×2 (16:36→19:52)
[2020-03-09] MEDS: ATORVASTATIN 10 MG TAB PO SCH (19:52)
[2020-03-09] MEDS: ASPIRIN 325 MG TAB PO SCH (19:52)
[2020-03-09 20:34] LABS: Glucose,Whole Blood 125 mg/dL (75-99)
[2020-03-09] MEDS: LACTATED RINGERS 1,000 ML IV SCH (23:41)
--- NOTE | 2020-03-10 00:05 | P.CONS ---
History of Present Illness - Reason for Consult Consult date: 03/09/20 pelvic abscess Requesting physician: Jerad Cruz - Chief Complaint abd pain x 3 weeks - History of Present Illness Patient is a 69-year-old female presenting to the ER at [facility] last evening with chief complaints of abdominal pain, patient mentioned that she has been dealing with the pain for almost 3 weeks now and has been treated as UTI in the outpatient setting by her primary care physician however for the last few days patient pain has been getting worse patient pain is mostly right lower abdominal area describing to be sharp intensity almost on her friend but that she was into the hospital with no radiation she has associated nausea vomiting and diarrhea and some chills with the symptom the patient was evaluated by the ER physician on arrival to the ER patient did have a fever 100.8 F patient did have a white count of 15.4 there was evidence of mild elevated urine although significantly positive COVID-19 testing was negative patient did have a CT of abdominal pelvis which did show mild to moderate inflammatory changes thro ughout the lower abdominal pelvis and concern for intrapelvic abscess subsequently patient has been admitted to hospital was evaluated by general surgery she has been taken to the OR and the patient status post laparotomy with ileocolectomy and drainage of the pelvic abscess and culture patient has been started on Zosyn infectious disease was consulted for further management of antibiotic therapy. Review of Systems Positive point has been mentioned in HPI rest of the systems are negative Past Medical History Past Medical History: Hyperlipidemia, Hypertension Additional Past Medical History / Comment(s): + HEPATITIS B History of Any Multi-Drug Resistant Organisms: None Reported Past Surgical History: Section, Tonsillectomy, Tubal Ligation Additional Past Surgical History / Comment(s): Breast cyst removed - left Past Anesthesia/Blood Transfusion Reactions: No Reported Reaction Past Psychological History: No Psychological Hx Reported Smoking Status: Never smoker Past Alcohol Use History: None Reported Past Drug Use History: None Reported - Past Family History Mother Family Medical History: Cancer Father Family Medical History: Cancer Medications and Allergies Home Medications Medication Instructions Recorded Confirmed Type Hydrochlorothiazide [Hydrodiuril] 50 mg PO DAILY@1500 02/18/14 03/08/20 History Levothyroxine Sodium [Synthroid] 88 mcg PO DAILY 02/18/14 03/08/20 History Lisinopril [Zestril] 5 mg PO DAILY@1500 02/18/14 03/08/20 History Potassium Chloride 20 meq PO DAILY@1500 02/18/14 03/08/20 History Simvastatin [Zocor] 20 mg PO HS 02/18/14 03/08/20 History Aspirin 325 mg PO HS 03/08/20 03/08/20 History Cefdinir [Omnicef] 300 mg PO Q12H 03/08/20 03/08/20 History Allergies Allergy/AdvReac Type Severity Reaction Status Date / Time adhesive Allergy Rash/Hives Verified 03/08/20 19:25 Physical Exam Vitals: Vital Signs Temp Pulse Pulse Resp BP BP Pulse Ox 03/09/20 12:21 99.2 F 97 16 150/72 94 L 03/09/20 07:00 99.0 F 82 15 219/67 94 L 03/09/20 02:22 98.3 F 85 18 132/81 91 L 03/08/20 21:34 98.5 F 77 18 119/71 95 03/08/20 21:15 98.2 F 80 16 148/80 98 03/08/20 19:30 98.7 F 75 16 146/77 98 03/08/20 17:50 100.8 F H 99 18 152/78 99 Intake and Output 03/08/20 03/09/20 03/09/20 22:59 06:59 14:59 Other: Voiding Method Toilet Toilet Weight 54.5 kg GENERAL DESCRIPTION: Elderly female lying in bed, no distress. No tachypnea or accessory muscle of respiration use. HEENT: Shows Pallor , no scleral icterus. Oral mucous membrane is dry. NECK: Trachea central, no thyromegaly. LUNGS: Unlabored breathing. Clear to auscultation anteriorly. No wheeze or crackle. HEART: S1, S2, regular rate and rhythm. ABDOMEN: Soft, mild distention and her lower quadrant tenderness, no guarding or rigidity EXTREMITIES: No edema of feet. SKIN: No rash, no masses palpable. NEUROLOGICAL: The patient is awake, alert, oriented x3, mood and affect normal. Results CBC & Chem 7: 03/08/20 18:23 03/08/20 18:23 Labs: Abnormal Lab Results - Last 24 Hours (Table) 03/08/20 03/08/20 03/08/20 Range/Units 18:23 18:23 18:23 WBC 15.4 H (3.8-10.6) k/uL Plt Count 474 H (150-450) k/uL Neutrophils # 13.4 H (1.3-7.7) k/uL Lymphocytes # 0.9 L (1.0-4.8) k/uL Sodium 131 L (137-145) mmol/L BUN 6 L (7-17) mg/dL Glucose 112 H (74-99) mg/dL Calcium 8.0 L (8.4-10.2) mg/dL AST 44 H (14-36) U/L ALT 51 H (4-34) U/L Total Protein 6.0 L (6.3-8.2) g/dL Albumin 3.2 L (3.5-5.0) g/dL Urine Protein Trace H (Negative) Urine Blood Small H (Negative) Ur Leukocyte Esterase Small H (Negative) Urine RBC 10 H (0-5) /hpf Urine WBC 9 H (0-5) /hpf Urine Mucus Few H (None) /hpf Assessment and Plan Assessment: -patient presented hospital with sepsis in this patient who did have a fever elevated white count source is intra-abdominal abscess with concern for possible ruptured appendicitis in this patient status post laparotomy ileocolectomy drainage of the abscess and deep cultures will need to call for they have resistant gram-negative as the patient has been exposed antibiotic with most few weeks for presumed UTI (1) Sepsis Current Visit: Yes Status: Acute Code(s): A41.9 - SEPSIS, UNSPECIFIED ORGANISM SNOMED Code(s): 86858468 (2) Intra-abdominal abscess Current Visit: Yes Status: Acute Code(s): K65.1 - PERITONEAL ABSCESS SNOMED Code(s): 23436464 Plan: 1-Zosyn 3.375 g every 8 hours 2-gentle IV fluid We will follow on clinical condition and cultures to further adjust medication if needed Thank you for this consultation we will follow the patient along with you Time with Patient: Greater than 30
[2020-03-10] MEDS: SODIUM CHLORIDE 0.9% 1,000 ML IV SCH ×6 (00:49→23:27)
[2020-03-10] MEDS: HYDROmorphone 0.5 MG/0.5 ML SYRINGE IVP PRN ×6 (00:49→23:27)
[2020-03-10] MEDS: LACTATED RINGERS 1,000 ML IV SCH (00:54)
[2020-03-10] MEDS: LEVOTHYROXINE 88 MCG TAB PO SCH (05:32)
[2020-03-10 07:37] LABS: ALT 31 U/L (4-34); AST 26 U/L (14-36); African American GFR (CKD) >90 (>60 ml/min/1.73 sqM); Albumin 2.4 g/dL (3.5-5.0); Alkaline Phosphatase 76 U/L (38-126); Anion Gap 7 mmol/L; Blood Urea Nitrogen 11 mg/dL (7-17); Calcium 7.7 mg/dL (8.4-10.2); Carbon Dioxide 23 mmol/L (22-30); Chloride 104 mmol/L (98-107); Glucose 105 mg/dL (74-99); Non-African American GFR(CKD) >90 (>60 ml/min/1.73 sqM); Potassium 3.9 mmol/L (3.5-5.1); Sodium 134 mmol/L (137-145); Total Bilirubin 0.5 mg/dL (0.2-1.3); Total Protein 4.9 g/dL (6.3-8.2)
[2020-03-10 07:50] LABS: HCT 31.6 % (34.0-46.0); HGB 10.2 gm/dL (11.4-16.0); Hypochromasia Slight; MCH 31.2 pg (25.0-35.0); MCHC 32.3 g/dL (31.0-37.0); MCV 96.4 fL (80.0-100.0); Mean Platelet Volume 7.5; Platelet Count 528 k/uL (150-450); RBC 3.27 m/uL (3.80-5.40); RDW 13.1 % (11.5-15.5); WBC 14.6 k/uL (3.8-10.6)
[2020-03-10] MEDS: PANTOPRAZOLE 40 MG/10 ML VIAL IVP SCH (08:03)
[2020-03-10] MEDS: HEPARIN SODIUM,PORCINE 5,000 UNIT/ML 1 ML VIAL SQ SCH ×3 (08:03→23:27)
[2020-03-10] MEDS: PIPERACILLIN-TAZOBACTAM 3.375 GM in SODIUM CHLORIDE 0.9% 100 ML IVPB SCH ×3 (08:03→23:27)
[2020-03-10 10:56] LABS: Band Neutrophils % 1 %; Lymphocytes # (M) 0.88 k/uL (1.0-4.8); Monocytes # (M) 0.58 k/uL (0-1.0); Neutrophils % (M) 89 %; Nucleated Red Blood Cells 0 /100 WBC (0-0); Total Cells Counted 100
--- NOTE | 2020-03-10 13:38 | P.PN ---
Subjective Progress Note Date: 03/10/20 CHIEF COMPLAINT: Abdominal pain HISTORY OF PRESENT ILLNESS: Patient is status post drainage of pelvic abscess and ileocolectomy. PHYSICAL EXAM: VITAL SIGNS: Reviewed. GENERAL: Well-developed in no acute distress. HEENT: No sclera icterus. Extraocular movements grossly intact. Moist buccal mucosa. Head is atraumatic, normocephalic. ABDOMEN: Soft. Nondistended. Dressing clean dry and intact. GARCÍA drain to right lower quadrant with serosanguineous drainage. NEUROLOGIC: Alert and oriented. Cranial nerves II through XII grossly intact. ASSESSMENT: 1. Abdominal pain 2. Intrapelvic abscess, suspect secondary to appendicitis PLAN: -NPO except for ice chips -Continue IV fluids -Monitor WBC. Continue antibiotics. Infectious disease on consult -Incentive spirometer -Continue Soria catheter -Activity as tolerated -Monitor GARCÍA drain output Nurse practitioner note has been reviewed by physician. Signing provider agrees with the documented findings, assessment, and plan of care. Objective - Vital Signs Vital signs: Vital Signs Temp 98.5 F 03/10/20 07:00 Pulse 74 03/10/20 08:08 Resp 15 03/10/20 08:08 BP 124/63 03/10/20 07:00 Pulse Ox 96 03/10/20 07:00 Intake & Output 03/09/20 03/10/20 03/10/20 18:59 06:59 18:59 Intake Total 2500 390 Output Total 310 590 Balance 2190 -200 Intake: IV 2500 Intake, IV Titration 390 Amount Sodium Chloride 0.9% 1, 390 000 ml @ 130 mls/hr IV . Q7H42M COUNTS INCLUDE 234 BEDS AT THE [facility] Rx#:[id number] Oral 0 Output: Drainage 120 90 Abdomen 120 90 Urine 50 500 Estimated Blood Loss 140 Other: Voiding Method Indwelling Catheter Indwelling Catheter Indwelling Catheter - Labs CBC & Chem 7: 03/10/20 06:33 03/10/20 06:33 Labs: Abnormal Lab Results - Last 24 Hours (Table) 03/09/20 03/10/20 03/10/20 Range/Units 20:32 06:33 06:33 WBC 14.6 H (3.8-10.6) k/uL RBC 3.27 L (3.80-5.40) m/uL Hgb 10.2 L (11.4-16.0) gm/dL Hct 31.6 L (34.0-46.0) % Plt Count 528 H (150-450) k/uL Neutrophils # (Manual) 13.10 H (1.3-7.7) k/uL Lymphocytes # (Manual) 0.88 L (1.0-4.8) k/uL Sodium 134 L (137-145) mmol/L Glucose 105 H (74-99) mg/dL POC Glucose (mg/dL) 125 H (75-99) mg/dL Calcium 7.7 L (8.4-10.2) mg/dL Total Protein 4.9 L (6.3-8.2) g/dL Albumin 2.4 L (3.5-5.0) g/dL Microbiology - Last 24 Hours (Table) 03/09/20 15:20 Gram Stain - Preliminary Abdomen Wound Culture - Preliminary
[2020-03-10] MEDS: POTASSIUM CHLORIDE ER 20 MEQ TAB.ER PO SCH (15:44)
[2020-03-10] MEDS: LISINOPRIL 5 MG TAB PO SCH (15:44)
[2020-03-10] MEDS: HYDROCHLOROTHIAZIDE 50 MG TAB PO SCH (15:44)
--- NOTE | 2020-03-10 17:10 | P.PN ---
Progress Note - Text Progress Note Date: 03/10/20 - Chief Complaint Abdominal pain Consultation: Patient is seen by me this morning. This is a pleasant 69-year-old patient of Dr. Wei. Chronic stable medical conditions include hyperlipidemia, hypertension, hypothyroid. Patient was treated for hepatitis B in the past. For 2 weeks patient been having right lower quadrant pain progressively getting worse. She was treated by her PCP for UTI in the meantime. Patient started having fever and chills. Nausea. The pain was intermittently getting worse. Predominantly the right lower quadrant. Presented to the ER. Computed tomography scan the ER showed a probable abscess. Patient's earlier seen by Dr. Cruz from general surgery. This is going down for surgery this afternoon. Patient otherwise rather active and no cardiac history. Denies any chest pain or shortness of breath. Good exercise tolerance. Admitted with a pelvic abscess. Taken to the OR on March [address] Cruz. Abscess was drained. With terminal ileum and right hemicolectomy. Patient has a GARCÍA drain. Today-laying in bed. Some drainage that she begin. Abdominal pain is better. No nausea vomiting. Pain control. No bowel movement. Patient is on ice chips. Review of systems: Was done for constitutional, cardiovascular, GI, pulmonary. relevant finding as above Active Medications Aspirin (Aspirin) 325 mg PO HS [facility] Last Admin: 03/09/20 19:52 Dose: 325 mg Documented by: Atorvastatin Calcium (Lipitor) 10 mg PO HS [facility] Last Admin: 03/09/20 19:52 Dose: 10 mg Documented by: Heparin Sodium (Porcine) (Heparin) 5,000 unit SQ Q8HR [facility] Last Admin: 03/10/20 15:57 Dose: 5,000 unit Documented by: Hydrochlorothiazide (Hydrodiuril) 50 mg PO DAILY@1500 [facility] Last Admin: 03/10/20 15:44 Dose: 50 mg Documented by: Hydromorphone HCl (Dilaudid) 0.5 mg IVP Q3HR PRN PRN Reason: Moderate Pain Last Admin: 03/10/20 15:45 Dose: 0.5 mg Documented by: Piperacillin Sod/Tazobactam (Sod 3.375 gm/ Sodium Chloride) 100 mls @ 25 mls/hr IVPB Q8HR [facility] Last Admin: 03/10/20 15:44 Dose: 25 mls/hr Documented by: Sodium Chloride (Saline 0.9%) 1,000 mls @ 150 mls/hr IV .Q6H40M [facility] Last Admin: 03/10/20 15:45 Dose: 150 mls/hr Documented by: Levothyroxine Sodium (Synthroid) 88 mcg PO DAILY@0600 [facility] Last Admin: 03/10/20 05:32 Dose: 88 mcg Documented by: Lisinopril (Zestril) 5 mg PO DAILY@1500 [facility] Last Admin: 03/10/20 15:44 Dose: 5 mg Documented by: Naloxone HCl (Narcan) 0.2 mg IV Q2M PRN PRN Reason: Opioid Reversal Ondansetron HCl (Zofran) 4 mg IVP Q8HR PRN PRN Reason: Nausea And Vomiting Pantoprazole Sodium (Protonix) 40 mg IVP DAILY [facility] Last Admin: 03/10/20 08:03 Dose: 40 mg Documented by: Potassium Chloride (K-Dur 20) 20 meq PO DAILY@1500 [facility] Last Admin: 03/10/20 15:44 Dose: 20 meq Documented by: Physical examination: VITAL SIGNS: 98.5, 74, 15, 124/63, 96% on 2 L GENERAL: Laying in bed, more comfortable today EYES: Pupils equal. Conjunctiva normal. HEENT: External appearance of nose and ears normal, oral cavity grossly normal. NECK: JVD not raised; masses not palpable. HEART: First and second heart sounds are normal; no edema. LUNGS: Respiratory rate normal; clear to auscultation. ABDOMEN: Soft, mild lower abdominal tenderness, with a dressing in place, GARCÍA drain, no guarding or rigidity, liver spleen not palpable, no masses palpable MUSCULOSKELETAL-evidence of OA especially in the hands and knees. PSYCH: Alert and oriented x3; mood and affect normal. INVESTIGATIONS, reviewed in the clinical context: White count 14.6 hemoglobin 10.2 platelets 528 potassium 3.9 creatinine 0.54 Previous testing White count 15.4 hemoglobin 12 platelets 474 potassium 3.7 creatinine 6 AST 44 ALT 51 COVID-19 PCR-not detected Computed tomography scan of the abdomen and pelvis-suspected abscess 0.7 X 7.4 X 7.7 CM. SHOWING MODERATE WELL-DEFINED FLUID AND FAT SURROUNDING. ASSESSMENT: -Acute pelvic abscess from a appendiceal abscess, that was drained with terminal ileum and right hemicolectomy -Hyperlipidemia -Essential hypertension -Hypothyroid -Acute postprocedure blood loss anemia as expected from surgery Plan: Patient getting IV fluids. On IV Zosyn. Ordered chewing gum. Discussed with the patient. Encouraged to sit up in a chair. Thank you Dr. Cruz
[2020-03-10] MEDS: ASPIRIN 325 MG TAB PO SCH (19:31)
[2020-03-10] MEDS: ATORVASTATIN 10 MG TAB PO SCH (19:32)
--- NOTE | 2020-03-10 20:07 | PN ---
PROGRESS NOTE DATE OF SERVICE: 03/10/2020 REASON FOR FOLLOWUP: Abdominal abscess. INTERVAL HISTORY: The patient is currently afebrile. She is breathing comfortably. Still complaining of abdominal pain, afebrile since the surgery, but no worsening. No nausea, vomiting. No chest pain, shortness of breath or cough. PHYSICAL EXAMINATION: Blood pressure 120/67, pulse of 74, temperature 98.4. She is 98% on 2 L nasal cannula. General description is an elderly female lying in bed in no distress. Respiratory system: Unlabored breathing. Clear to auscultation anteriorly. Heart S1, S2. Regular rate and rhythm. ABDOMEN: Soft. No guarding or rigidity. LABS: Hemoglobin is 10.8, white count 14.6, BUN of 11, creatinine 0.54. Abdominal cultures currently pending. DIAGNOSTIC IMPRESSION AND PLAN: Patient with abdominal abscess, possible ruptured appendicitis, status post laparotomy and ileocolectomy. The patient currently covered with Zosyn to continue and monitor clinical course closely. Adjust the antibiotic further based on the culture report. MMODL / IJN: [id number] /
[2020-03-11] MEDS: LEVOTHYROXINE 88 MCG TAB PO SCH (05:07)
[2020-03-11] MEDS: HYDROmorphone 0.5 MG/0.5 ML SYRINGE IVP PRN ×4 (05:08→20:14)
[2020-03-11] MEDS: SODIUM CHLORIDE 0.9% 1,000 ML IV SCH ×2 (05:10→16:12)
[2020-03-11] MEDS: PIPERACILLIN-TAZOBACTAM 3.375 GM in SODIUM CHLORIDE 0.9% 100 ML IVPB SCH ×2 (09:12→16:04)
[2020-03-11] MEDS: PANTOPRAZOLE 40 MG/10 ML VIAL IVP SCH (09:13)
[2020-03-11] MEDS: HEPARIN SODIUM,PORCINE 5,000 UNIT/ML 1 ML VIAL SQ SCH ×2 (09:14→16:03)
[2020-03-11 09:42] LABS: Basophils % (A) 0 %; Eosinophils # (A) 0.1 k/uL (0-0.7); Eosinophils % (A) 1 %; HCT 27.5 % (34.0-46.0); Hypochromasia Slight; Lymphocytes # (A) 0.9 k/uL (1.0-4.8); Lymphocytes % (A) 9 %; MCH 31.1 pg (25.0-35.0); MCHC 32.6 g/dL (31.0-37.0); MCV 95.5 fL (80.0-100.0); Mean Platelet Volume 7.1; Monocytes # (A) 0.5 k/uL (0-1.0); Monocytes % (A) 4 %; Neutrophils # (A) 8.9 k/uL (1.3-7.7); Neutrophils % (A) 84 %; Platelet Count 530 k/uL (150-450); RBC 2.88 m/uL (3.80-5.40); RDW 12.8 % (11.5-15.5); WBC 10.5 k/uL (3.8-10.6)
[2020-03-11 09:54] LABS: ALT 27 U/L (4-34); AST 28 U/L (14-36); African American GFR (CKD) >90 (>60 ml/min/1.73 sqM); Albumin 2.5 g/dL (3.5-5.0); Alkaline Phosphatase 61 U/L (38-126); Anion Gap 8 mmol/L; Blood Urea Nitrogen 11 mg/dL (7-17); Calcium 7.8 mg/dL (8.4-10.2); Carbon Dioxide 23 mmol/L (22-30); Chloride 102 mmol/L (98-107); Glucose 91 mg/dL (74-99); Non-African American GFR(CKD) >90 (>60 ml/min/1.73 sqM); Sodium 133 mmol/L (137-145); Total Bilirubin 0.5 mg/dL (0.2-1.3); Total Protein 5.1 g/dL (6.3-8.2)
--- NOTE | 2020-03-11 12:03 | CDI ---
Documentation Clarification Form Date: 03/11/2020 11:35:00 AM From: Yelena Guillaume RN, CCDS Admit Date: 03/08/2020 08:19:00 PM Patient Name: Victoria Valle Visit Number: [id number] Discharge Date: ATTENTION: The Clinical Documentation Specialists (CDI) and [facility] Coding Staff appreciate your assistance in clarifying documentation. Please respond to the clarification below the line at the bottom and electronically sign. The CDI & [facility] Coding staff will review the response and follow-up if needed. Please note: Queries are made part of the Legal Health Record. If you have any questions, please contact the author of this message via ITS. Dr. Jerad Cruz The patient presented to ED on 03/08 with the following with complaints of abdominal pain, fever, nausea and diarrhea. Sepsis was documented in the ID consult on 03/09. Please provide documentation if you agree with assessment. History/Risk Factors: UTI, Hepatitis B Hypertension Clinical Indicators: 69 year-old female 03/08 present with complaints of right lower quadrant abdominal pain. 03/08 WBC 15.4 02/27 Lactic acid: 1.0 03/08 Vitals signs on admission: 152/[address] abdomen/pelvis: Moderate inflammatory changes throughout the lower abdomen and pelvis suspicious for 7.7 cm debris-filled structure right mid pelvis with air fluid levels worrisome for intrapelvis abscess Treatment: .9 Saline bolus then 130 mls/hr Zosyn 3.375 mg IV Q8hrs Zofran 4 mg IV X1 than 4mg IV Q8 hrs/prn Monitor CBC ID Consult:03/09 (Dr. Mendez) Patient presented with sepsis in this patient who did have a fever elevated white count source is intra-abdominal abscess with concern for possible ruptured appendicitis. In your professional opinion, please clarify if these findings signify one of the following conditions, whether the condition is POA, and cause, if known: Condition Sepsis ruled out Sepsis ruled in (identify infection source and POA status) Other, please specify Unable to determine Present on Admission Yes No Identify the (suspected) organism Link or clarify if there is associated (due to/with): Organ failure Shock SIRS Criteria (2 or more of the following may indicate SIRS): -Temperature < 96.8F (36C) or > 101.0F (38.3C) -Heart Rate > 90 bpm -Respiratory Rate > 20 breaths/min or PaCO2 < 32 mmHg -White Blood Cell Count > 12,000 or < 4,000 cells/mm3 or > 10% bands -Lactate >2.0 mmol/L (>4.0 is equivalent to septic shock) (Last Revision: January 2018) Sepsis ruled in on admission MTDD
--- NOTE | 2020-03-11 12:54 | P.PN ---
Subjective Progress Note Date: 03/11/20 CHIEF COMPLAINT: Abdominal pain HISTORY OF PRESENT ILLNESS: Patient is status post drainage of pelvic abscess and ileocolectomy. Patient reports abdominal pain. Denies passing flatus. She is burping. PHYSICAL EXAM: VITAL SIGNS: Reviewed. GENERAL: Well-developed in no acute distress. HEENT: No sclera icterus. Extraocular movements grossly intact. Moist buccal mucosa. Head is atraumatic, normocephalic. ABDOMEN: Soft. Nondistended. Dressing clean dry and intact. GARCÍA drain to right lower quadrant with serosanguineous drainage. NEUROLOGIC: Alert and oriented. Cranial nerves II through XII grossly intact. ASSESSMENT: 1. Abdominal pain 2. Intrapelvic abscess, suspect secondary to appendicitis PLAN: -NPO except for ice chips. No TPN at this time per Dr. Cruz. Possible clear liquids tomorrow. -Continue IV fluids -Monitor WBC. Continue antibiotics. Infectious disease on consult -Incentive spirometer -Continue Soria catheter -Activity as tolerated -Monitor GARCÍA drain output Nurse practitioner note has been reviewed by physician. Signing provider agrees with the documented findings, assessment, and plan of care. Objective - Vital Signs Vital signs: Vital Signs Temp 97.8 F 03/11/20 07:00 Pulse 66 03/11/20 07:00 Resp 16 03/11/20 07:00 BP 111/66 03/11/20 07:00 Pulse Ox 95 03/11/20 07:00 Intake & Output 03/10/20 03/11/20 03/11/20 18:59 06:59 18:59 Intake Total 1150 450 Output Total 60 1290 Balance 1090 -840 Intake: Intake, IV Titration 1150 450 Amount Piperacillin-Tazobactam 3 100 .375 gm In Sodium Chloride 0.9% 100 ml @ 25 mls/hr IVPB Q8HR [facility] Rx# :[id number] Sodium Chloride 0.9% 1, 1050 000 ml @ 130 mls/hr IV . Q7H42M [facility] Rx#:[id number] Sodium Chloride 0.9% 1, 450 000 ml @ 150 mls/hr IV . Q6H40M [facility] Rx#:[id number] Output: Drainage 60 90 Abdomen 60 90 Urine 1200 Other: Voiding Method Indwelling Catheter Indwelling Catheter Indwelling Catheter - Labs CBC & Chem 7: 03/11/20 09:18 03/11/20 09:18 Labs: Abnormal Lab Results - Last 24 Hours (Table) 03/11/20 03/11/20 Range/Units 09:18 09:18 RBC 2.88 L (3.80-5.40) m/uL Hgb 9.0 L (11.4-16.0) gm/dL Hct 27.5 L (34.0-46.0) % Plt Count 530 H (150-450) k/uL Neutrophils # 8.9 H (1.3-7.7) k/uL Lymphocytes # 0.9 L (1.0-4.8) k/uL Sodium 133 L (137-145) mmol/L Calcium 7.8 L (8.4-10.2) mg/dL Total Protein 5.1 L (6.3-8.2) g/dL Albumin 2.5 L (3.5-5.0) g/dL
[2020-03-11] MEDS: POTASSIUM CHLORIDE ER 20 MEQ TAB.ER PO SCH (16:04)
[2020-03-11] MEDS: LISINOPRIL 5 MG TAB PO SCH (16:04)
[2020-03-11] MEDS: HYDROCHLOROTHIAZIDE 50 MG TAB PO SCH (16:04)
--- NOTE | 2020-03-11 16:13 | P.PN ---
Progress Note - Text Progress Note Date: 03/11/20 - Chief Complaint Abdominal pain Consultation: Patient is seen by me this morning. This is a pleasant 69-year-old patient of Dr. Wei. Chronic stable medical conditions include hyperlipidemia, hypertension, hypothyroid. Patient was treated for hepatitis B in the past. For 2 weeks patient been having right lower quadrant pain progressively getting worse. She was treated by her PCP for UTI in the meantime. Patient started having fever and chills. Nausea. The pain was intermittently getting worse. Predominantly the right lower quadrant. Presented to the ER. Computed tomography scan the ER showed a probable abscess. Patient's earlier seen by Dr. Cruz from general surgery. This is going down for surgery this afternoon. Patient otherwise rather active and no cardiac history. Denies any chest pain or shortness of breath. Good exercise tolerance. Admitted with a pelvic abscess. Taken to the OR on March [address] Cruz. Abscess was drained. With terminal ileum and right hemicolectomy. Patient has a GARCÍA drain. Today-has been up in a chair. GARCÍA drain is putting out a day and output. Pain is controlled. No flatus. No nausea vomiting. Review of systems: Was done for constitutional, cardiovascular, GI, pulmonary. relevant finding as above Active Medications Aspirin (Aspirin) 325 mg PO HS [facility] Last Admin: 03/10/20 19:31 Dose: Not Given Documented by: Atorvastatin Calcium (Lipitor) 10 mg PO HS [facility] Last Admin: 03/10/20 19:32 Dose: Not Given Documented by: Heparin Sodium (Porcine) (Heparin) 5,000 unit SQ Q8HR [facility] Last Admin: 03/11/20 09:14 Dose: 5,000 unit Documented by: Hydrochlorothiazide (Hydrodiuril) 50 mg PO DAILY@1500 [facility] Last Admin: 03/10/20 15:44 Dose: 50 mg Documented by: Hydromorphone HCl (Dilaudid) 0.5 mg IVP Q3HR PRN PRN Reason: Moderate Pain Last Admin: 03/11/20 11:55 Dose: 0.5 mg Documented by: Piperacillin Sod/Tazobactam (Sod 3.375 gm/ Sodium Chloride) 100 mls @ 25 mls/hr IVPB Q8HR [facility] Last Admin: 03/11/20 09:12 Dose: 25 mls/hr Documented by: Sodium Chloride (Saline 0.9%) 1,000 mls @ 150 mls/hr IV .Q6H40M [facility] Last Admin: 03/11/20 05:10 Dose: 150 mls/hr Documented by: Levothyroxine Sodium (Synthroid) 88 mcg PO DAILY@0600 [facility] Last Admin: 03/11/20 05:07 Dose: Not Given Documented by: Lisinopril (Zestril) 5 mg PO DAILY@1500 [facility] Last Admin: 03/10/20 15:44 Dose: 5 mg Documented by: Naloxone HCl (Narcan) 0.2 mg IV Q2M PRN PRN Reason: Opioid Reversal Ondansetron HCl (Zofran) 4 mg IVP Q8HR PRN PRN Reason: Nausea And Vomiting Pantoprazole Sodium (Protonix) 40 mg IVP DAILY [facility] Last Admin: 03/11/20 09:13 Dose: 40 mg Documented by: Potassium Chloride (K-Dur 20) 20 meq PO [id number] [facility] Last Admin: 03/10/20 15:44 Dose: 20 meq Documented by: Physical examination: VITAL SIGNS: Recent 0.8, 66, 16, 111/66, 95% on 2 L GENERAL: Laying in bed, comfortable EYES: Pupils equal. Conjunctiva normal. HEENT: External appearance of nose and ears normal, oral cavity grossly normal. NECK: JVD not raised; masses not palpable. HEART: First and second heart sounds are normal; no edema. LUNGS: Respiratory rate normal; clear to auscultation. ABDOMEN: Soft, lower abdominal tenderness, with a dressing in place, GARCÍA drain- with bloody drainage, no guarding or rigidity, liver spleen not palpable, no masses palpable MUSCULOSKELETAL-evidence of OA especially in the hands and knees. PSYCH: Alert and oriented x3; mood and affect normal. INVESTIGATIONS, reviewed in the clinical context: White count 10.5 hemoglobin 9 potassium 4 creatinine 0.54 Previous testing White count 15.4 hemoglobin 12 platelets 474 potassium 3.7 creatinine 6 AST 44 ALT 51 COVID-19 PCR-not detected Computed tomography scan of the abdomen and pelvis-suspected abscess 0.7 X 7.4 X 7.7 CM. SHOWING MODERATE WELL-DEFINED FLUID AND FAT SURROUNDING. ASSESSMENT: -Acute pelvic abscess from a appendiceal abscess, that was drained with terminal ileum and right hemicolectomy -Hyperlipidemia -Essential hypertension -Hypothyroid -Acute postprocedure blood loss anemia as expected from surgery Plan: -Continue with IV Zosyn. Encouraged to ambulate. Continue with IV fluids. She remains nothing by mouth except for ice chips per surgery. Discussed with the patient. Thank you Dr. Cruz
--- NOTE | 2020-03-11 17:17 | PN ---
PROGRESS NOTE DATE OF SERVICE: 03/11/2020 REASON FOR FOLLOWUP: Abdominal abscess. INTERVAL HISTORY: The patient is currently afebrile, patient is breathing comfortably. The patient denies having any chest pain or shortness of breath or cough. Abdominal pain is currently improved. No nausea, no vomiting. PHYSICAL EXAMINATION: Blood pressure 142/69, pulse of 81, temperature 98.4. She is 96% on room air. General description is an elderly female up in the chair in no distress. RESPIRATORY SYSTEM: Unlabored breathing, clear to auscultation anteriorly. HEART: S1, S2. Regular rate and rhythm. ABDOMEN: Soft. Mild tenderness. No guarding or rigidity. LABS: Hemoglobin 9, white count 10.5, BUN of 11, creatinine 0.54. Cultures currently pending. DIAGNOSTIC IMPRESSION AND PLAN: Patient with abdominal abscess, likely from a ruptured appendicitis, status post laparotomy with ileocolectomy. Abdominal cultures are currently pending. Will keep the patient on Zosyn. Will wait for the culture to finalize and condition to stabilize and continue supportive care. MMODL / IJN: [id number] /
[2020-03-11] MEDS: ASPIRIN 325 MG TAB PO SCH (20:12)
[2020-03-11] MEDS: ATORVASTATIN 10 MG TAB PO SCH (20:12)
[2020-03-12] MEDS: PIPERACILLIN-TAZOBACTAM 3.375 GM in SODIUM CHLORIDE 0.9% 100 ML IVPB SCH ×3 (00:18→17:43)
[2020-03-12] MEDS: HEPARIN SODIUM,PORCINE 5,000 UNIT/ML 1 ML VIAL SQ SCH ×3 (00:19→17:43)
[2020-03-12] MEDS: SODIUM CHLORIDE 0.9% 1,000 ML IV SCH ×4 (00:21→18:59)
[2020-03-12] MEDS: HYDROmorphone 0.5 MG/0.5 ML SYRINGE IVP PRN ×4 (02:09→20:53)
[2020-03-12] MEDS: LEVOTHYROXINE 88 MCG TAB PO SCH (06:11)
[2020-03-12 07:56] LABS: Basophils # (A) 0.1 k/uL (0-0.2); Basophils % (A) 1 %; Eosinophils # (A) 0.2 k/uL (0-0.7); Eosinophils % (A) 2 %; HCT 27.9 % (34.0-46.0); HGB 8.8 gm/dL (11.4-16.0); Hypochromasia Slight; Lymphocytes # (A) 0.9 k/uL (1.0-4.8); Lymphocytes % (A) 9 %; MCH 29.6 pg (25.0-35.0); MCHC 31.6 g/dL (31.0-37.0); MCV 93.7 fL (80.0-100.0); Monocytes # (A) 0.5 k/uL (0-1.0); Monocytes % (A) 5 %; Neutrophils # (A) 8.6 k/uL (1.3-7.7); Neutrophils % (A) 83 %; Platelet Count 568 k/uL (150-450); RBC 2.97 m/uL (3.80-5.40); RDW 12.6 % (11.5-15.5); WBC 10.4 k/uL (3.8-10.6)
[2020-03-12 08:06] LABS: ALT 31 U/L (4-34); AST 37 U/L (14-36); African American GFR (CKD) >90 (>60 ml/min/1.73 sqM); Albumin 2.5 g/dL (3.5-5.0); Alkaline Phosphatase 61 U/L (38-126); Anion Gap 10 mmol/L; Blood Urea Nitrogen 7 mg/dL (7-17); Calcium 7.7 mg/dL (8.4-10.2); Carbon Dioxide 23 mmol/L (22-30); Chloride 98 mmol/L (98-107); Glucose 75 mg/dL (74-99); Non-African American GFR(CKD) >90 (>60 ml/min/1.73 sqM); Potassium 3.9 mmol/L (3.5-5.1); Sodium 131 mmol/L (137-145); Total Bilirubin 0.6 mg/dL (0.2-1.3); Total Protein 5.1 g/dL (6.3-8.2)
[2020-03-12] MEDS: PANTOPRAZOLE 40 MG/10 ML VIAL IVP SCH (08:27)
--- NOTE | 2020-03-12 10:26 | P.PN ---
Progress Note - Text Progress Note Date: 03/12/20 The patient's resting comfortably in bed. She denies any significant pain. She's had no flatus or bowel movements. On exam her vital signs are still. Abdomen soft. GARCÍA draining serosanguineous. Status post left colectomy for presumed perforated appendicitis with abscess. Patient has a ileus which is expected. She'll remain nothing by mouth until she has return of bowel function.
--- NOTE | 2020-03-12 15:16 | P.PN ---
Subjective This is a pleasant 69-year-old patient of Dr. Wei. Chronic stable medical conditions include hyperlipidemia, hypertension, hypothyroid. Patient was treated for hepatitis B in the past. For 2 weeks patient been having right lower quadrant pain progressively getting worse. She was treated by her PCP for UTI in the meantime. Patient started having fever and chills. Nausea. The pain was intermittently getting worse. Predominantly the right lower quadrant. Presented to the ER. Computed tomography scan the ER showed a probable abscess. Patient's earlier seen by Dr. Cruz from general surgery. This is going down for surgery this afternoon. Patient otherwise rather active and no cardiac history. Denies any chest pain or shortness of breath. Good exercise tolerance. Admitted with a pelvic abscess. Taken to the OR on March [address] Cruz. Abscess was drained. With terminal ileum and right hemicolectomy. Patient has a GARCÍA drain. Today-has been up in a chair. GARCÍA drain is putting out a day and output. Pain is controlled. No flatus. No nausea vomiting. 03/12/2020 Patient is status post a right hemicolectomy and end-to-end anastomosis. Patient doesn't have a GARCÍA drain a colostomy bag. Patient did not pass gas did not move her bowel yet. Patient bowel sounds are sluggish and exam. Patient is bit hyponatremic, hydrochlorothiazide will be discontinued patient is receiving IV fluids patient blood pressure is also low because of which I do not believe patient will require this medication at least at this time. Constitutional: Denied any fatigue denied any fever. Cardio vascular: denied any chest pain, palpitations Gastrointestinal denied any nausea vomiting Pulmonary: Denied any shortness of breath cough Neurologic denied any new focal deficits All inpatient medications were reviewed and appropriate changes in these medications as dictated in the interval history and assessment and plan. Objective - Vital Signs Vital signs: Vital Signs Temp 98.6 F 03/12/20 07:00 Pulse 80 03/12/20 07:00 Resp 18 03/12/20 07:00 BP 115/68 03/12/20 07:00 Pulse Ox 95 03/12/20 07:00 Intake & Output 03/11/20 03/12/20 03/12/20 18:59 06:59 18:59 Intake Total 1150 30 Output Total 575 420 Balance 575 -390 Weight 83.518 kg Intake: Intake, IV Titration 1150 Amount Piperacillin-Tazobactam 3 100 .375 gm In Sodium Chloride 0.9% 100 ml @ 25 mls/hr IVPB Q8HR [facility] Rx# :[id number] Sodium Chloride 0.9% 1, 1050 000 ml @ 150 mls/hr IV . Q6H40M [facility] Rx#:[id number] Oral 30 Output: Drainage 75 120 Abdomen 75 120 Urine 500 300 Other: Voiding Method Indwelling Catheter Indwelling Catheter Indwelling Catheter # Voids 1 - Exam PHYSICAL EXAMINATION: GENERAL: The patient is alert and oriented x3, not in any acute distress. Well developed, well nourished. HEENT: Pupils are round and equally reacting to light. EOMI. No scleral icterus. No conjunctival pallor. Normocephalic, atraumatic. No pharyngeal erythema. No thyromegaly. CARDIOVASCULAR: S1 and S2 present. No murmurs, rubs, or gallops. PULMONARY: Chest is clear to auscultation, no wheezing or crackles. ABDOMEN: Soft, sluggish bowel sounds nontender surgical site areas appear to be clean MUSCULOSKELETAL: No joint swelling or deformity. EXTREMITIES: No cyanosis, clubbing, or pedal edema. NEUROLOGICAL: Gross neurological examination did not reveal any focal deficits. SKIN: No rashes. - Labs CBC & Chem 7: 03/12/20 07:13 03/12/20 07:13 Labs: Abnormal Lab Results - Last 24 Hours (Table) 03/12/20 03/12/20 Range/Units 07:13 07:13 RBC 2.97 L (3.80-5.40) m/uL Hgb 8.8 L (11.4-16.0) gm/dL Hct 27.9 L (34.0-46.0) % Plt Count 568 H (150-450) k/uL Neutrophils # 8.6 H (1.3-7.7) k/uL Lymphocytes # 0.9 L (1.0-4.8) k/uL Sodium 131 L (137-145) mmol/L Calcium 7.7 L (8.4-10.2) mg/dL AST 37 H (14-36) U/L Total Protein 5.1 L (6.3-8.2) g/dL Albumin 2.5 L (3.5-5.0) g/dL Assessment and Plan Plan: -Acute pelvic abscess from a appendiceal abscess, that was drained with terminal ileum and right hemicolectomy -Hyponatremia: Secondary to hydrocodone thiazide which was discontinued can you with IV fluids -Hyperlipidemia -Essential hypertension: As of now patient is hypotensive will not require any antidepressants medications -Hypothyroid -Acute postprocedure blood loss anemia as expected from surgery
[2020-03-12] MEDS: POTASSIUM CHLORIDE ER 20 MEQ TAB.ER PO SCH (17:44)
[2020-03-12] MEDS: LISINOPRIL 5 MG TAB PO SCH (17:44)
--- NOTE | 2020-03-12 18:25 | PN ---
PROGRESS NOTE DATE OF SERVICE: 03/12/2020 REASON FOR FOLLOWUP: Abdominal abscess. INTERIM HISTORY: The patient is currently afebrile. The patient is breathing comfortably. The patient's abdominal pain is currently controlled. Denies having any chest pain. No shortness of breath or cough. PHYSICAL EXAMINATION: Blood pressure 123/63 with a pulse of 82, temperature 98. She is 96% on room air. General description is an elderly female lying in bed in no distress. Respiratory system: Unlabored breathing, clear to auscultation anteriorly. Heart S1, S2. Regular rate and rhythm. Abdomen soft. No significant tenderness. LABS: Hemoglobin 8.8, white count 10.4, BUN of 7, creatinine 0.53. Abdominal cultures currently pending. DIAGNOSTIC IMPRESSION AND PLAN: Patient with abdominal abscess, likely from a ruptured appendix in this patient who is status post laparotomy with drainage of the abscess and ileocolectomy. Abdominal culture is pending. Patient to continue Zosyn and monitor clinical course closely. MMODL / IJN: [id number] /
[2020-03-12] MEDS: ATORVASTATIN 10 MG TAB PO SCH (20:51)
[2020-03-12] MEDS: ASPIRIN 325 MG TAB PO SCH (20:51)
[2020-03-13] MEDS: PIPERACILLIN-TAZOBACTAM 3.375 GM in SODIUM CHLORIDE 0.9% 100 ML IVPB SCH ×3 (00:38→15:28)
[2020-03-13] MEDS: HEPARIN SODIUM,PORCINE 5,000 UNIT/ML 1 ML VIAL SQ SCH ×3 (00:43→15:28)
[2020-03-13] MEDS: SODIUM CHLORIDE 0.9% 1,000 ML IV SCH ×3 (01:44→08:28)
[2020-03-13] MEDS: HYDROmorphone 0.5 MG/0.5 ML SYRINGE IVP PRN ×3 (04:40→15:33)
[2020-03-13] MEDS: LEVOTHYROXINE 88 MCG TAB PO SCH (05:45)
[2020-03-13] MEDS: PANTOPRAZOLE 40 MG/10 ML VIAL IVP SCH (08:27)
--- NOTE | 2020-03-13 10:41 | P.PN ---
Progress Note - Text Progress Note Date: 03/13/20 The patient feels well. She is currently up in the commode. She's had flatus. On exam her vital signs are stable. Her abdomen soft. Incision site is clean and dry. Status post ileocolectomy for presumed chronic appendicitis with abscess. Patient will have her diet started on clear liquids. Her Soria catheter will be removed. We'll continue supportive care.
--- NOTE | 2020-03-13 12:02 | P.PN ---
Subjective This is a pleasant 69-year-old patient of Dr. Wei. Chronic stable medical conditions include hyperlipidemia, hypertension, hypothyroid. Patient was treated for hepatitis B in the past. For 2 weeks patient been having right lower quadrant pain progressively getting worse. She was treated by her PCP for UTI in the meantime. Patient started having fever and chills. Nausea. The pain was intermittently getting worse. Predominantly the right lower quadrant. Presented to the ER. Computed tomography scan the ER showed a probable abscess. Patient's earlier seen by Dr. Cruz from general surgery. This is going down for surgery this afternoon. Patient otherwise rather active and no cardiac history. Denies any chest pain or shortness of breath. Good exercise tolerance. Admitted with a pelvic abscess. Taken to the OR on March [address] Cruz. Abscess was drained. With terminal ileum and right hemicolectomy. Patient has a GARCÍA drain. Today-has been up in a chair. GARCÍA drain is putting out a day and output. Pain is controlled. No flatus. No nausea vomiting. 03/12/2020 Patient is status post a right hemicolectomy and end-to-end anastomosis. Patient doesn't have a GARCÍA drain a colostomy bag. Patient did not pass gas did not move her bowel yet. Patient bowel sounds are sluggish and exam. Patient is bit hyponatremic, hydrochlorothiazide will be discontinued patient is receiving IV fluids patient blood pressure is also low because of which I do not believe patient will require this medication at least at this time. 03/13/2020 in sodium has gone down 131. Patient 100 mL of normal saline Will repeat basic metabolic profile tomorrow Constitutional: Denied any fatigue denied any fever. Cardio vascular: denied any chest pain, palpitations Gastrointestinal denied any nausea vomiting Pulmonary: Denied any shortness of breath cough Neurologic denied any new focal deficits All inpatient medications were reviewed and appropriate changes in these medications as dictated in the interval history and assessment and plan. Objective - Vital Signs Vital signs: Vital Signs Temp 97.6 F 03/13/20 08:25 Pulse 71 03/13/20 08:25 Resp 16 03/13/20 08:25 BP 112/66 03/13/20 08:25 Pulse Ox 93 L 03/13/20 08:25 Intake & Output 03/12/20 03/13/20 03/13/20 18:59 06:59 18:59 Intake Total 800 50 100 Output Total 2049 1690 490 Balance -3399 -7509 -854 Intake: Intake, IV Titration 800 100 Amount Piperacillin-Tazobactam 3 100 .375 gm In Sodium Chloride 0.9% 100 ml @ 25 mls/hr IVPB Q8HR [facility] Rx# :[id number] Sodium Chloride 0.9% 1, 800 000 ml @ 150 mls/hr IV . Q6H40M [facility] Rx#:[id number] Oral 50 Output: Gastric Drainage 50 Drainage 140 90 Abdomen 140 90 Urine 2000 1550 400 Uretheral (Soria) 400 Other: Voiding Method Indwelling Catheter Indwelling Catheter Indwelling Catheter - Exam PHYSICAL EXAMINATION: GENERAL: The patient is alert and oriented x3, not in any acute distress. Well developed, well nourished. HEENT: Pupils are round and equally reacting to light. EOMI. No scleral icterus. No conjunctival pallor. Normocephalic, atraumatic. No pharyngeal erythema. No thyromegaly. CARDIOVASCULAR: S1 and S2 present. No murmurs, rubs, or gallops. PULMONARY: Chest is clear to auscultation, no wheezing or crackles. ABDOMEN: Soft, sluggish bowel sounds nontender surgical site areas appear to be clean MUSCULOSKELETAL: No joint swelling or deformity. EXTREMITIES: No cyanosis, clubbing, or pedal edema. NEUROLOGICAL: Gross neurological examination did not reveal any focal deficits. SKIN: No rashes. - Labs CBC & Chem 7: 03/12/20 07:13 03/12/20 07:13 Labs: Microbiology - Last 24 Hours (Table) 03/09/20 15:20 Gram Stain - Preliminary Abdomen Wound Culture - Preliminary Streptococcus bovis Alpha Hemolytic Streptococcus Assessment and Plan Plan: -Acute pelvic abscess from a appendiceal abscess, that was drained with terminal ileum and right hemicolectomy -Hyponatremia: Secondary to hydrochlorothiazide which was discontinued can you with IV fluids -Hyperlipidemia -Essential hypertension: As of now patient is hypotensive will not require any antidepressants medications -Hypothyroid -Acute postprocedure blood loss anemia as expected from surgery
[2020-03-13 12:32] VITALS: BMI 29.7
[2020-03-13] MEDS: POTASSIUM CHLORIDE ER 20 MEQ TAB.ER PO SCH (15:28)
[2020-03-13] MEDS: LISINOPRIL 5 MG TAB PO SCH (15:28)
[2020-03-13] MEDS: ASPIRIN 325 MG TAB PO SCH (21:25)
[2020-03-13] MEDS: ATORVASTATIN 10 MG TAB PO SCH (21:25)
--- NOTE | 2020-03-13 22:39 | PN ---
PROGRESS NOTE DATE OF SERVICE: 03/13/2020 REASON FOR FOLLOWUP: An abdominal abscess from perforated appendix. INTERIM HISTORY: The patient is currently afebrile. The patient is breathing comfortably. Denies having any chest pain. No shortness of breath. No cough. No nausea, no vomiting. Abdominal pain is currently controlled. No diarrhea. PHYSICAL EXAMINATION: On examination, her blood pressure is 129/74 with a pulse of 85, temperature 98.2. She is 99% on room air. General description is an elderly female up in the chair in no distress. Respiratory system: Unlabored breathing, clear to auscultation anteriorly. Heart S1, S2. Regular rate and rhythm. Abdomen soft, no tenderness. LABS: Hemoglobin 8.8, white count 10.4. Abdominal culture finalized with alpha hemolytic Streptococcus and Enterococcus ( ). DIAGNOSTIC IMPRESSION AND PLAN: Patient with abdominal abscess from a perforated appendix status post ileocolectomy and drainage of the abscess. Culture with Enterococcus ( ) and Streptococcus on Zosyn. Finish therapy with oral Augmentin. She will benefit from a colonoscopy in the outpatient setting once the acute episode is resolved. Continue supportive care. MMODL / IJN: [id number] /
[2020-03-14] MEDS: HEPARIN SODIUM,PORCINE 5,000 UNIT/ML 1 ML VIAL SQ SCH ×4 (00:58→23:25)
[2020-03-14] MEDS: PIPERACILLIN-TAZOBACTAM 3.375 GM in SODIUM CHLORIDE 0.9% 100 ML IVPB SCH ×4 (00:58→23:24)
[2020-03-14] MEDS: SODIUM CHLORIDE 0.9% 1,000 ML IV SCH ×3 (01:02→21:01)
[2020-03-14] MEDS: HYDROmorphone 0.5 MG/0.5 ML SYRINGE IVP PRN ×3 (01:19→16:02)
[2020-03-14] MEDS: LEVOTHYROXINE 88 MCG TAB PO SCH (04:58)
[2020-03-14 07:47] LABS: African American GFR (CKD) >90 (>60 ml/min/1.73 sqM); Anion Gap 6 mmol/L; Blood Urea Nitrogen 7 mg/dL (7-17); Calcium 7.6 mg/dL (8.4-10.2); Carbon Dioxide 26 mmol/L (22-30); Chloride 103 mmol/L (98-107); Glucose 88 mg/dL (74-99); Non-African American GFR(CKD) >90 (>60 ml/min/1.73 sqM); Potassium 3.8 mmol/L (3.5-5.1); Sodium 135 mmol/L (137-145)
[2020-03-14] MEDS: PANTOPRAZOLE 40 MG/10 ML VIAL IVP SCH (08:46)
--- NOTE | 2020-03-14 11:30 | P.PN ---
Progress Note - Text Progress Note Date: 03/14/20 The patient states she feels better. She's had multiple bowel movements and is passing gas. She states her pain is a 45 and 10. It is mainly incisional. On exam her vital signs are stable. Abdomen soft. Incision is clean. GARCÍA drain has some serosanguineous fluid. Status post ileocolectomy for perforated appendicitis with abscess. Patient will have her diet advanced.
--- NOTE | 2020-03-14 14:30 | P.PN ---
Subjective This is a pleasant 69-year-old patient of Dr. Wei. Chronic stable medical conditions include hyperlipidemia, hypertension, hypothyroid. Patient was treated for hepatitis B in the past. For 2 weeks patient been having right lower quadrant pain progressively getting worse. She was treated by her PCP for UTI in the meantime. Patient started having fever and chills. Nausea. The pain was intermittently getting worse. Predominantly the right lower quadrant. Presented to the ER. Computed tomography scan the ER showed a probable abscess. Patient's earlier seen by Dr. Cruz from general surgery. This is going down for surgery this afternoon. Patient otherwise rather active and no cardiac history. Denies any chest pain or shortness of breath. Good exercise tolerance. Admitted with a pelvic abscess. Taken to the OR on March [address] Cruz. Abscess was drained. With terminal ileum and right hemicolectomy. Patient has a GARCÍA drain. Today-has been up in a chair. GARCÍA drain is putting out a day and output. Pain is controlled. No flatus. No nausea vomiting. 03/12/2020 Patient is status post a right hemicolectomy and end-to-end anastomosis. Patient doesn't have a GARCÍA drain a colostomy bag. Patient did not pass gas did not move her bowel yet. Patient bowel sounds are sluggish and exam. Patient is bit hyponatremic, hydrochlorothiazide will be discontinued patient is receiving IV fluids patient blood pressure is also low because of which I do not believe patient will require this medication at least at this time. 03/13/2020 in sodium has gone down 131. Patient 100 mL of normal saline Will repeat basic metabolic profile tomorrow. 03/14/2020 Patient's serum sodium improved will discourage IV fluids at this time. Constitutional: Denied any fatigue denied any fever. Cardio vascular: denied any chest pain, palpitations Gastrointestinal denied any nausea vomiting Pulmonary: Denied any shortness of breath cough Neurologic denied any new focal deficits All inpatient medications were reviewed and appropriate changes in these medications as dictated in the interval history and assessment and plan. Objective - Vital Signs Vital signs: Vital Signs Temp 98.2 F 03/14/20 07:24 Pulse 75 03/14/20 07:24 Resp 16 03/14/20 07:24 BP 121/72 03/14/20 07:24 Pulse Ox 93 L 03/14/20 07:24 Intake & Output 03/13/20 03/14/20 03/14/20 18:59 06:59 18:59 Intake Total 100 20 Output Total 920 440 Balance -820 -420 Weight 83.518 kg Intake: Intake, IV Titration 100 Amount Piperacillin-Tazobactam 3 100 .375 gm In Sodium Chloride 0.9% 100 ml @ 25 mls/hr IVPB Q8HR [facility] Rx# :[id number] Oral 20 Output: Drainage 220 40 Abdomen 220 40 Urine 700 400 Uretheral ([place]) 400 Other: Voiding Method Indwelling Catheter Toilet - Exam PHYSICAL EXAMINATION: GENERAL: The patient is alert and oriented x3, not in any acute distress. Well developed, well nourished. HEENT: Pupils are round and equally reacting to light. EOMI. No scleral icterus. No conjunctival pallor. Normocephalic, atraumatic. No pharyngeal erythema. No thyromegaly. CARDIOVASCULAR: S1 and S2 present. No murmurs, rubs, or gallops. PULMONARY: Chest is clear to auscultation, no wheezing or crackles. ABDOMEN: Soft, sluggish bowel sounds nontender surgical site areas appear to be clean MUSCULOSKELETAL: No joint swelling or deformity. EXTREMITIES: No cyanosis, clubbing, or pedal edema. NEUROLOGICAL: Gross neurological examination did not reveal any focal deficits. SKIN: No rashes. - Labs CBC & Chem 7: 03/12/20 07:13 03/14/20 07:04 Labs: Abnormal Lab Results - Last 24 Hours (Table) 03/14/20 Range/Units 07:04 Sodium 135 L (137-145) mmol/L Creatinine 0.47 L (0.52-1.04) mg/dL Calcium 7.6 L (8.4-10.2) mg/dL Microbiology - Last 24 Hours (Table) 03/09/20 15:20 Gram Stain - Final Abdomen Wound Culture - Final Streptococcus bovis Alpha Hemolytic Streptococcus Assessment and Plan Plan: -Acute pelvic abscess from a appendiceal abscess, that was drained with terminal ileum and right hemicolectomy -Hyponatremia: Secondary to hydrochlorothiazide which was discontinued we'll cut down the IV fluids to 50 mL per hour -Hyperlipidemia -Essential hypertension: As of now patient is hypotensive will not require any antidepressants medications -Hypothyroid -Acute postprocedure blood loss anemia as expected from surgery
[2020-03-14] MEDS: POTASSIUM CHLORIDE ER 20 MEQ TAB.ER PO SCH (16:02)
[2020-03-14] MEDS: LISINOPRIL 5 MG TAB PO SCH (16:02)
--- NOTE | 2020-03-14 18:15 | PN ---
PROGRESS NOTE DATE OF SERVICE: 03/14/2020 REASON FOR FOLLOWUP: Abdominal abscess from a perforated appendix. INTERVAL HISTORY: The patient is currently afebrile. Patient is breathing comfortably. Denies having any chest pain or shortness of breath or cough. Abdominal pain is currently improved. No nausea, vomiting or diarrhea. EXAMINATION: Blood pressure 120/72 with a pulse of 75, temperature 98.2. She is 93% on room air. General description: The patient is an elderly female lying in bed in no distress. Respiratory system: Unlabored breathing. Clear to auscultation anteriorly. Heart S1, S2. Regular rate and rhythm. Abdomen soft, no tenderness. LABS: Creatinine 0.47. DIAGNOSTIC IMPRESSION AND PLAN: Patient with abdominal abscess from a perforated appendicitis, status post drainage of the abscess and colectomy. Abdominal culture positive for Streptococcus Streptococcus. The patient is currently covered with Zosyn. Finish therapy with oral antibiotics and monitor clinical course closely. Continue supportive care. MMODL / IJN: [id number] /
[2020-03-14] MEDS: ASPIRIN 325 MG TAB PO SCH (21:02)
[2020-03-14] MEDS: ATORVASTATIN 10 MG TAB PO SCH (21:04)
[2020-03-15] MEDS: LEVOTHYROXINE 88 MCG TAB PO SCH (05:29)
[2020-03-15] MEDS: HEPARIN SODIUM,PORCINE 5,000 UNIT/ML 1 ML VIAL SQ SCH ×3 (08:35→23:24)
[2020-03-15] MEDS: PIPERACILLIN-TAZOBACTAM 3.375 GM in SODIUM CHLORIDE 0.9% 100 ML IVPB SCH ×3 (08:35→23:24)
[2020-03-15] MEDS: PANTOPRAZOLE 40 MG/10 ML VIAL IVP SCH (08:36)
[2020-03-15] MEDS: HYDROmorphone 0.5 MG/0.5 ML SYRINGE IVP PRN ×3 (08:39→18:12)
[2020-03-15 09:23] LABS: Basophils # (A) 0.1 k/uL (0-0.2); Basophils % (A) 1 %; Eosinophils # (A) 0.2 k/uL (0-0.7); Eosinophils % (A) 3 %; HCT 28.2 % (34.0-46.0); HGB 8.9 gm/dL (11.4-16.0); Hypochromasia Slight; Lymphocytes # (A) 0.9 k/uL (1.0-4.8); Lymphocytes % (A) 12 %; MCH 29.8 pg (25.0-35.0); MCHC 31.7 g/dL (31.0-37.0); MCV 94.1 fL (80.0-100.0); Mean Platelet Volume 7.5; Monocytes # (A) 0.4 k/uL (0-1.0); Monocytes % (A) 5 %; Neutrophils # (A) 6.1 k/uL (1.3-7.7); Neutrophils % (A) 79 %; Platelet Count 692 k/uL (150-450); RDW 13.5 % (11.5-15.5); WBC 7.7 k/uL (3.8-10.6)
[2020-03-15 09:31] LABS: African American GFR (CKD) >90 (>60 ml/min/1.73 sqM); Anion Gap 6 mmol/L; Blood Urea Nitrogen 4 mg/dL (7-17); Calcium 7.7 mg/dL (8.4-10.2); Carbon Dioxide 25 mmol/L (22-30); Chloride 105 mmol/L (98-107); Glucose 117 mg/dL (74-99); Non-African American GFR(CKD) >90 (>60 ml/min/1.73 sqM); Potassium 3.8 mmol/L (3.5-5.1); Sodium 136 mmol/L (137-145)
--- NOTE | 2020-03-15 13:02 | P.PN ---
Subjective Progress Note Date: 03/15/20 CHIEF COMPLAINT: Abdominal pain HISTORY OF PRESENT ILLNESS: Patient is status post drainage of pelvic abscess and ileocolectomy. Patient examined at the bedside with Dr. Cruz. Patient has passing flatus and having bowel movements. She complains of pain with movement. PHYSICAL EXAM: VITAL SIGNS: Reviewed. GENERAL: Well-developed in no acute distress. HEENT: No sclera icterus. Extraocular movements grossly intact. Moist buccal m ucosa. Head is atraumatic, normocephalic. ABDOMEN: Soft. Nondistended. Dressing saturated. GARCÍA drain to right lower quadrant with sanguineous drainage. NEUROLOGIC: Alert and oriented. Cranial nerves II through XII grossly intact. ASSESSMENT: 1. Abdominal pain 2. Intrapelvic abscess, suspect secondary to appendicitis PLAN: -Continue antibiotics. Infectious disease on consult -Incentive spirometer -Activity as tolerated -Monitor GARCÍA drain output -Dressing changed at the bedside -Continue full liquid diet for today per Dr. Cruz Nurse practitioner note has been reviewed by physician. Signing provider agrees with the documented findings, assessment, and plan of care. Objective - Vital Signs Vital signs: Vital Signs Temp 98.0 F 03/15/20 06:51 Pulse 64 03/15/20 06:51 Resp 17 03/15/20 06:51 BP 110/68 03/15/20 06:51 Pulse Ox 96 03/15/20 06:51 Intake & Output 03/14/20 03/15/20 03/15/20 18:59 06:59 18:59 Output Total 100 380 50 Balance -100 -380 -50 Weight 83.518 kg Output: Drainage 100 380 50 Abdomen 100 380 50 Other: Voiding Method Toilet # Voids 2 1 - Labs CBC & Chem 7: 03/15/20 09:12 03/15/20 09:12 Labs: Abnormal Lab Results - Last 24 Hours (Table) 03/15/20 03/15/20 Range/Units 09:12 09:12 RBC 3.00 L (3.80-5.40) m/uL Hgb 8.9 L (11.4-16.0) gm/dL Hct 28.2 L (34.0-46.0) % Plt Count 692 H (150-450) k/uL Lymphocytes # 0.9 L (1.0-4.8) k/uL Sodium 136 L (137-145) mmol/L BUN 4 L (7-17) mg/dL Glucose 117 H (74-99) mg/dL Calcium 7.7 L (8.4-10.2) mg/dL
--- NOTE | 2020-03-15 15:02 | P.PN ---
Subjective Progress Note Date: 03/15/20 Principal diagnosis: This is a pleasant 69-year-old patient of Dr. Wei. Chronic stable medical conditions include hyperlipidemia, hypertension, hypothyroid. Patient was treat ed for hepatitis B in the past. For 2 weeks patient been having right lower quadrant pain progressively getting worse. She was treated by her PCP for UTI in the meantime. Patient started having fever and chills. Nausea. The pain was intermittently getting worse. Predominantly the right lower quadrant. Presented to the ER. Computed tomography scan the ER showed a probable abscess. Patient's earlier seen by Dr. Cruz from general surgery. This is going down for surgery this afternoon. Patient otherwise rather active and no cardiac history. Denies any chest pain or shortness of breath. Good exercise tolerance. Admitted with a pelvic abscess. Taken to the OR on March [address] Cruz. Abscess was drained. With terminal ileum and right hemicolectomy. Patient has a GARCÍA drain. Today-has been up in a chair. GARCÍA drain is putting out a day and output. Pain is controlled. No flatus. No nausea vomiting. 03/12/2020 Patient is status post a right hemicolectomy and end-to-end anastomosis. Patient doesn't have a GARCÍA drain a colostomy bag. Patient did not pass gas did not move her bowel yet. Patient bowel sounds are sluggish and exam. Patient is bit hyponatremic, hydrochlorothiazide will be discontinued patient is receiving IV fluids patient blood pressure is also low because of which I do not believe patient will require this medication at least at this time. 03/13/2020 in sodium has gone down 131. Patient 100 mL of normal saline Will repeat basic metabolic profile tomorrow. 03/14/2020 Patient's serum sodium improved will discourage IV fluids at this time. Constitutional: Denied any fatigue denied any fever. Cardio vascular: denied any chest pain, palpitations Gastrointestinal denied any nausea vomiting Pulmonary: Denied any shortness of breath cough Neurologic denied any new focal deficits All inpatient medications were reviewed and appropriate changes in these medications as dictated in the interval history and assessment and plan. 03/15/2020 Patient is seen and evaluated sitting up in the chair. No acute overnight issues noted. Patient is maintained on clear liquid diet and tolerating with no reports of nausea or vomiting noted. Patient is passing gas and having bowel movements. GARCÍA drain noted with sanguinous fluid. Sodium today is Objective - Vital Signs Vital signs: Vital Signs Temp 98.0 F 03/15/20 06:51 Pulse 64 03/15/20 06:51 Resp 17 03/15/20 06:51 BP 110/68 03/15/20 06:51 Pulse Ox 96 03/15/20 06:51 Intake & Output 03/14/20 03/15/20 03/15/20 18:59 06:59 18:59 Output Total 100 380 50 Balance -100 -380 -50 Weight 83.518 kg Output: Drainage 100 380 50 Abdomen 100 380 50 Other: Voiding Method Toilet # Voids 2 1 - Exam GENERAL: The patient is alert and oriented x3, not in any acute distress. Well developed, well nourished. HEENT: Pupils are round and equally reacting to light. EOMI. No scleral icterus. No conjunctival pallor. Normocephalic, atraumatic. No pharyngeal erythema. No thyromegaly. CARDIOVASCULAR: S1 and S2 present. No murmurs, rubs, or gallops. PULMONARY: Chest is clear to auscultation, no wheezing or crackles. ABDOMEN: Soft, normal bowel sounds noted, nontender surgical site areas appear to be clean, GARCÍA drain noted with sanguinous fluid MUSCULOSKELETAL: No joint swelling or deformity. EXTREMITIES: No cyanosis, clubbing, or pedal edema. NEUROLOGICAL: Gross neurological examination did not reveal any focal deficits. SKIN: No rashes. - Labs CBC & Chem 7: 03/15/20 09:12 03/15/20 09:12 Labs: Abnormal Lab Results - Last 24 Hours (Table) 03/15/20 03/15/20 Range/Units 09:12 09:12 RBC 3.00 L (3.80-5.40) m/uL Hgb 8.9 L (11.4-16.0) gm/dL Hct 28.2 L (34.0-46.0) % Plt Count 692 H (150-450) k/uL Lymphocytes # 0.9 L (1.0-4.8) k/uL Sodium 136 L (137-145) mmol/L BUN 4 L (7-17) mg/dL Glucose 117 H (74-99) mg/dL Calcium 7.7 L (8.4-10.2) mg/dL Assessment and Plan Assessment: -Acute pelvic abscess from a appendiceal abscess, that was drained with terminal ileum and right hemicolectomy, patient continued on Zosyn -Hyponatremia: Secondary to hydrochlorothiazide which was discontinued, IV fluids decreased, improved, current sodium is 136 -Hyperlipidemia -Essential hypertension: Lisinopril was resumed -Hypothyroidism -Acute postprocedure blood loss anemia as expected from surgery
[2020-03-15] MEDS: SODIUM CHLORIDE 0.9% 1,000 ML IV SCH (15:10)
[2020-03-15] MEDS: POTASSIUM CHLORIDE ER 20 MEQ TAB.ER PO SCH (15:13)
[2020-03-15] MEDS: LISINOPRIL 5 MG TAB PO SCH (15:13)
--- NOTE | 2020-03-15 16:38 | PN ---
PROGRESS NOTE DATE OF SERVICE: 03/15/2020 REASON FOR FOLLOWUP: Abdominal abscess from a perforated appendix. INTERVAL HISTORY: The patient is currently afebrile, patient is breathing comfortably. Patient denies having any chest pain. No shortness of breath or cough. No nausea, vomiting. Abdominal pain is currently controlled. No nausea or vomiting and no diarrhea. PHYSICAL EXAMINATION: Blood pressure is 110/68 with a pulse of 54, temperature 98, she is 96% on room air. General description is an elderly female, lying in bed in no distress. RESPIRATORY SYSTEM: Unlabored breathing, clear to auscultation anteriorly. HEART: S1, S2. Regular rate and rhythm. ABDOMEN: Soft no tenderness. LABS: Hemoglobin 8.8, white count of 7.7, with a BUN of 14, creatinine 0.54. DIAGNOSTIC IMPRESSION AND PLAN: Patient with abdominal abscess from perforated appendicitis, status post laparotomy and ileocolectomy. The patient has shown clinical improvement. Culture positive for Streptococcus bovis and alpha Streptococcus on Zosyn. Finish therapy with oral Augmentin for about a week. Continue supportive care. MMODL / IJN: [id number] /
[2020-03-15] MEDS: ASPIRIN 325 MG TAB PO SCH (20:56)
[2020-03-15] MEDS: ATORVASTATIN 10 MG TAB PO SCH (20:56)
[2020-03-16] MEDS: LEVOTHYROXINE 88 MCG TAB PO SCH (05:41)
[2020-03-16] MEDS: HEPARIN SODIUM,PORCINE 5,000 UNIT/ML 1 ML VIAL SQ SCH ×2 (08:35→14:59)
[2020-03-16] MEDS: PANTOPRAZOLE 40 MG/10 ML VIAL IVP SCH (08:35)
[2020-03-16] MEDS: PIPERACILLIN-TAZOBACTAM 3.375 GM in SODIUM CHLORIDE 0.9% 100 ML IVPB SCH ×2 (08:36→14:59)
--- NOTE | 2020-03-16 10:16 | P.PN ---
<Yamini Demarco - Last Filed: 03/16/20 10:14> Subjective Progress Note Date: 03/16/20 CHIEF COMPLAINT: Abdominal pain HISTORY OF PRESENT ILLNESS: Patient is status post drainage of pelvic abscess and ileocolectomy. Patient examined at the bedside. Patient is passing flatus and having bowel movements. Abdominal pain is tolerable. PHYSICAL EXAM: VITAL SIGNS: Reviewed. GENERAL: Well-developed in no acute distress. HEENT: No sclera icterus. Extraocular movements grossly intact. Moist buccal mucosa. Head is atraumatic, normocephalic. ABDOMEN: Soft. Nondistended. Dressing clean dry intact. GARCÍA drain to right lower quadrant with sanguineous drainage. NEUROLOGIC: Alert and oriented. Cranial nerves II through XII grossly intact. ASSESSMENT: 1. Abdominal pain 2. Intrapelvic abscess, suspect secondary to appendicitis PLAN: -Continue antibiotics. Infectious disease on consult -Incentive spirometer -Activity as tolerated -Monitor GARCÍA drain output -Change abdominal dressing today. Remove telfa kaleb and replace with new telfa kaleb. Cover with 4x4 and ABD pad -Continue full liquid diet -Patient will be re-evaluated this afternoon by Dr. Cruz. Possible advancement of diet at that time Nurse practitioner note has been reviewed by physician. Signing provider agrees with the documented findings, assessment, and plan of care. Objective - Vital Signs Vital signs: Vital Signs Temp 98.2 F 03/16/20 07:00 Pulse 66 03/16/20 07:00 Resp 18 03/16/20 07:00 BP 124/75 03/16/20 07:00 Pulse Ox 96 03/16/20 07:00 Intake & Output 03/15/20 03/16/20 03/16/20 18:59 06:59 18:59 Intake Total 540 480 Output Total 150 155 Balance 390 325 Weight 83.518 kg Intake: Oral 540 480 Output: Drainage 150 155 Abdomen 150 155 Other: # Voids 5 2 - Labs CBC & Chem 7: 03/15/20 09:12 03/15/20 09:12 <Jerad Cruz - Last Filed: 03/16/20 16:35> Objective - Vital Signs Vital signs: Vital Signs Temp 98.4 F 03/16/20 15:00 Pulse 61 03/16/20 15:00 Resp 17 03/16/20 15:00 BP 134/64 03/16/20 15:00 Pulse Ox 98 03/16/20 15:00 Intake & Output 03/15/20 03/16/20 03/16/20 18:59 06:59 18:59 Intake Total 540 480 360 Output Total 150 155 60 Balance 390 325 300 Weight 83.518 kg Intake: IV 360 Piperacillin-Tazobactam 3 200 .375 gm In Sodium Chloride 0.9% 100 ml @ 25 mls/hr IVPB Q8HR [facility] Rx# :[id number] Sodium Chloride 0.9% 1, 160 000 ml @ 50 mls/hr IV . Q20H [facility] Rx#:[id number] Oral 540 480 Output: Drainage 150 155 60 Abdomen 150 155 60 Other: # Voids 5 2 - Labs CBC & Chem 7: 03/15/20 09:12 03/15/20 09:12 Assessment and Plan Assessment: Patient did well. Her diet advanced.
[2020-03-16] MEDS: SODIUM CHLORIDE 0.9% 1,000 ML IV SCH (11:54)
[2020-03-16] MEDS: POTASSIUM CHLORIDE ER 20 MEQ TAB.ER PO SCH (14:59)
[2020-03-16] MEDS: LISINOPRIL 5 MG TAB PO SCH (14:59)
--- NOTE | 2020-03-16 15:21 | P.PN ---
Subjective Progress Note Date: 03/16/20 Principal diagnosis: This is a pleasant 69-year-old patient of Dr. Wei. Chronic stable medical conditions include hyperlipidemia, hypertension, hypothyroid. Patient was treat ed for hepatitis B in the past. For 2 weeks patient been having right lower quadrant pain progressively getting worse. She was treated by her PCP for UTI in the meantime. Patient started having fever and chills. Nausea. The pain was intermittently getting worse. Predominantly the right lower quadrant. Presented to the ER. Computed tomography scan the ER showed a probable abscess. Patient's earlier seen by Dr. Cruz from general surgery. This is going down for surgery this afternoon. Patient otherwise rather active and no cardiac history. Denies any chest pain or shortness of breath. Good exercise tolerance. Admitted with a pelvic abscess. Taken to the OR on March [address] Cruz. Abscess was drained. With terminal ileum and right hemicolectomy. Patient has a GARCÍA drain. Today-has been up in a chair. GARCÍA drain is putting out a day and output. Pain is controlled. No flatus. No nausea vomiting. 03/12/2020 Patient is status post a right hemicolectomy and end-to-end anastomosis. Patient doesn't have a GARCÍA drain a colostomy bag. Patient did not pass gas did not move her bowel yet. Patient bowel sounds are sluggish and exam. Patient is bit hyponatremic, hydrochlorothiazide will be discontinued patient is receiving IV fluids patient blood pressure is also low because of which I do not believe patient will require this medication at least at this time. 03/13/2020 in sodium has gone down 131. Patient 100 mL of normal saline Will repeat basic metabolic profile tomorrow. 03/14/2020 Patient's serum sodium improved will discourage IV fluids at this time. Constitutional: Denied any fatigue denied any fever. Cardio vascular: denied any chest pain, palpitations Gastrointestinal denied any nausea vomiting Pulmonary: Denied any shortness of breath cough Neurologic denied any new focal deficits All inpatient medications were reviewed and appropriate changes in these medications as dictated in the interval history and assessment and plan. 03/15/2020 Patient is seen and evaluated sitting up in the chair. No acute overnight issues noted. Patient is maintained on clear liquid diet and tolerating with no reports of nausea or vomiting noted. Patient is passing gas and having bowel movements. GARCÍA drain noted with sanguinous fluid. 03/16/2020 Patient is seen in evaluated in follow-up today and continues to have generalized abdominal discomfort although states has gotten better. Patient states she is passing gas and having bowel movements with some diarrhea noted. GARCÍA drain noted with sanguinous fluid and abdominal dressings were changed today. Patient currently on full liquid diet and been advanced to low fiber later today as she states she is tolerating but having some intermittent nausea from the full liquids. Patient states the diet is not very appetizing. Patient requesting to get up in the room and walk around as this makes her feel better. Currently no reports of chest pain, shortness of breath, or palpitations. Patient is afebrile. Patient remains on IV antibiotics and will continue at this time. Objective - Vital Signs Vital signs: Vital Signs Temp 98.2 F 03/16/20 07:00 Pulse 66 03/16/20 07:00 Resp 18 03/16/20 07:00 BP 124/75 03/16/20 07:00 Pulse Ox 96 03/16/20 07:00 Intake & Output 03/15/20 03/16/20 03/16/20 18:59 06:59 18:59 Intake Total 540 480 360 Output Total 150 155 Balance 390 325 360 Weight 83.518 kg Intake: IV 360 Piperacillin-Tazobactam 3 200 .375 gm In Sodium Chloride 0.9% 100 ml @ 25 mls/hr IVPB Q8HR [facility] Rx# :[id number] Sodium Chloride 0.9% 1, 160 000 ml @ 50 mls/hr IV . Q20H [facility] Rx#:[id number] Oral 540 480 Output: Drainage 150 155 Abdomen 150 155 Other: # Voids 5 2 - Exam GENERAL: The patient is alert and oriented x3, not in any acute distress. Well developed, well nourished. HEENT: Pupils are round and equally reacting to light. EOMI. No scleral icterus. No conjunctival pallor. Normocephalic, atraumatic. No pharyngeal erythema. No thyromegaly. CARDIOVASCULAR: S1 and S2 present. No murmurs, rubs, or gallops. PULMONARY: Chest is clear to auscultation, no wheezing or crackles. ABDOMEN: Soft, normal bowel sounds noted, nontender surgical site areas appear to be clean, GARCÍA drain noted with sanguinous fluid, abdominal dressing changed t yohan and is currently dry and intact. MUSCULOSKELETAL: No joint swelling or deformity. EXTREMITIES: No cyanosis, clubbing, or pedal edema. NEUROLOGICAL: Gross neurological examination did not reveal any focal deficits. SKIN: No rashes. - Labs CBC & Chem 7: 03/15/20 09:12 03/15/20 09:12 Assessment and Plan Assessment: -Acute pelvic abscess from a appendiceal abscess, that was drained with terminal ileum and right hemicolectomy, patient continued on Zosyn -Hyponatremia: Secondary to hydrochlorothiazide which was discontinued, IV fluids decreased, improved, current sodium is 136 -Hyperlipidemia -Essential hypertension: Lisinopril was resumed -Hypothyroidism -Acute postprocedure blood loss anemia as expected from surgery
--- NOTE | 2020-03-16 20:20 | PN ---
PROGRESS NOTE DATE OF SERVICE: 03/16/2020 REASON FOR FOLLOWUP: Abdominal abscess from perforated appendix. INTERVAL HISTORY: The patient is currently afebrile. The patient is breathing comfortably. Denies having any chest pain or shortness of breath or cough. No nausea or vomiting or abdominal pain. She was complaining of more swelling in the lower extremity and a dry cough. PHYSICAL EXAMINATION: Blood pressure 134/64 with a pulse of 61, temperature 98.4. She is 98% on room air. General description is an elderly female lying in bed in no distress. RESPIRATORY SYSTEM: Unlabored breathing. Clear to auscultation anteriorly. HEART: S1, S2. Regular rate and rhythm. ABDOMEN: Soft. No tenderness. LABS: Hemoglobin 8.9, white count 7.7, BUN of 4, creatinine 0.54. DIAGNOSTIC IMPRESSION AND PLAN: Patient with abdominal abscess from a perforated appendicitis, post laparotomy and ileocolectomy. The patient's abdominal culture is positive for Streptococcus bovis and alpha hemolytic Streptococcus. The patient is covered with Zosyn and will finish therapy with oral Augmentin. Hep-Lock the IV fluid and place her on low-dose diuretics for her lower extremity swelling. Continue with supportive care. MMODL / IJN: [id number] /
[2020-03-16] MEDS: ASPIRIN 325 MG TAB PO SCH (20:24)
[2020-03-16] MEDS: ATORVASTATIN 10 MG TAB PO SCH (20:24)
[2020-03-16] MEDS: HYDROmorphone 0.5 MG/0.5 ML SYRINGE IVP PRN (21:19)
[2020-03-17] MEDS: PIPERACILLIN-TAZOBACTAM 3.375 GM in SODIUM CHLORIDE 0.9% 100 ML IVPB SCH ×4 (01:24→23:12)
[2020-03-17] MEDS: HEPARIN SODIUM,PORCINE 5,000 UNIT/ML 1 ML VIAL SQ SCH ×4 (01:24→23:12)
[2020-03-17] MEDS: LEVOTHYROXINE 88 MCG TAB PO SCH (05:50)
[2020-03-17] MEDS: PANTOPRAZOLE 40 MG/10 ML VIAL IVP SCH (09:08)
[2020-03-17] MEDS: HYDROmorphone 0.5 MG/0.5 ML SYRINGE IVP PRN ×2 (09:20→22:03)
--- NOTE | 2020-03-17 10:06 | P.PN ---
Subjective Progress Note Date: 03/17/20 CHIEF COMPLAINT: Abdominal pain HISTORY OF PRESENT ILLNESS: Patient is status post drainage of pelvic abscess and ileocolectomy. Patient examined at the bedside. Patient is passing flatus and having bowel movements. Denies abdominal pain. Reports lower back pain this morning. Tolerating diet without nausea or vomiting. She reports leg swelling and states she has not been receiving her home dose of HCTZ. PHYSICAL EXAM: VITAL SIGNS: Reviewed. GENERAL: Well-developed in no acute distress. HEENT: No sclera icterus. Extraocular movements grossly intact. Moist buccal mucosa. Head is atraumatic, normocephalic. ABDOMEN: Soft. Nondistended. Dressing clean dry intact. GARCÍA drain to right lower quadrant with sanguineous drainage. NEUROLOGIC: Alert and oriented. Cranial nerves II through XII grossly intact. ASSESSMENT: 1. Abdominal pain 2. Intrapelvic abscess, suspect secondary to appendicitis PLAN: -Continue antibiotics. Infectious disease on consult -Incentive spirometer -Activity as tolerated -Monitor GARCÍA drain output -Continue diet as tolerated -Discontinue IV fluids -Resume home dose of HCTZ Nurse practitioner note has been reviewed by physician. Signing provider agrees with the documented findings, assessment, and plan of care. Objective - Vital Signs Vital signs: Vital Signs Temp 98.9 F 03/17/20 07:00 Pulse 71 03/17/20 07:00 Resp 17 03/17/20 07:00 BP 129/67 03/17/20 07:00 Pulse Ox 96 03/17/20 07:00 Intake & Output 03/16/20 03/17/20 03/17/20 18:59 06:59 18:59 Intake Total 360 Output Total 60 160 Balance 300 -160 Intake: IV 360 Piperacillin-Tazobactam 3 200 .375 gm In Sodium Chloride 0.9% 100 ml @ 25 mls/hr IVPB Q8HR [facility] Rx# :[id number] Sodium Chloride 0.9% 1, 160 000 ml @ 50 mls/hr IV . Q20H [facility] Rx#:[id number] Output: Drainage 60 160 Abdomen 60 160 Other: # Voids 3 - Labs CBC & Chem 7: 03/15/20 09:12 03/15/20 09:12
[2020-03-17] MEDS: HYDROCHLOROTHIAZIDE 50 MG TAB PO SCH (10:54)
[2020-03-17] MEDS: POTASSIUM CHLORIDE ER 20 MEQ TAB.ER PO SCH (16:14)
[2020-03-17] MEDS: LISINOPRIL 5 MG TAB PO SCH (16:14)
--- NOTE | 2020-03-17 18:04 | P.PN ---
Progress Note - Text Progress Note Date: 03/17/20 - Chief Complaint Abdominal pain Consultation: Patient is seen by me this morning. This is a pleasant 69-year-old patient of Dr. Wei. Chronic stable medical conditions include hyperlipidemia, hypertension, hypothyroid. Patient was treated for hepatitis B in the past. For 2 weeks patient been having right lower quadrant pain progressively getting worse. She was treated by her PCP for UTI in the meantime. Patient started having fever and chills. Nausea. The pain was intermittently getting worse. Predominantly the right lower quadrant. Presented to the ER. Computed tomography scan the ER showed a probable abscess. Patient's earlier seen by Dr. Cruz from general surgery. This is going down for surgery this afternoon. Patient otherwise rather active and no cardiac history. Denies any chest pain or shortness of breath. Good exercise tolerance. Admitted with a pelvic abscess. Taken to the OR on March [address] Cruz. Abscess was drained. With terminal ileum and right hemicolectomy. Patient has a GARCÍA drain. Today-feeling better. Tolerating a diet. Having some loose stools. No abdominal pain. Has been out of bed to the bathroom. Review of systems: Was done for constitutional, cardiovascular, GI, pulmonary. relevant finding as above Active Medications Aspirin (Aspirin) 325 mg PO HS [facility] Last Admin: 03/16/20 20:24 Dose: 325 mg Documented by: Atorvastatin Calcium (Lipitor) 10 mg PO HS [facility] Last Admin: 03/16/20 20:24 Dose: 10 mg Documented by: Heparin Sodium (Porcine) (Heparin) 5,000 unit SQ Q8HR [facility] Last Admin: 03/17/20 16:14 Dose: 5,000 unit Documented by: Hydrochlorothiazide (Hydrodiuril) 50 mg PO DAILY [facility] Last Admin: 03/17/20 10:54 Dose: 50 mg Documented by: Hydromorphone HCl (Dilaudid) 0.5 mg IVP Q3HR PRN PRN Reason: Moderate Pain Last Admin: 03/17/20 09:20 Dose: 0.5 mg Documented by: Piperacillin Sod/Tazobactam (Sod 3.375 gm/ Sodium Chloride) 100 mls @ 25 mls/hr IVPB Q8HR [facility] Last Admin: 03/17/20 16:17 Dose: 25 mls/hr Documented by: Sodium Chloride (Saline 0.9%) 1,000 mls @ 50 mls/hr IV .Q20H [facility] Last Admin: 03/16/20 11:54 Dose: 50 mls/hr Documented by: Levothyroxine Sodium (Synthroid) 88 mcg PO DAILY@0600 [facility] Last Admin: 03/17/20 05:50 Dose: 88 mcg Documented by: Lisinopril (Zestril) 5 mg PO DAILY@1500 [facility] Last Admin: 03/17/20 16:14 Dose: 5 mg Documented by: Naloxone HCl (Narcan) 0.2 mg IV Q2M PRN PRN Reason: Opioid Reversal Ondansetron HCl (Zofran) 4 mg IVP Q8HR PRN PRN Reason: Nausea And Vomiting Pantoprazole Sodium (Protonix) 40 mg IVP DAILY [facility] Last Admin: 03/17/20 09:08 Dose: 40 mg Documented by: Potassium Chloride (K-Dur 20) 20 meq PO DAILY@1500 [facility] Last Admin: 03/17/20 16:14 Dose: 20 meq Documented by: Physical examination: VITAL SIGNS: 98.9, 71, 17, 129/67, 96% on room air GENERAL: Sitting upon a chair, comfortable EYES: Pupils equal. Conjunctiva normal. HEENT: External appearance of nose and ears normal, oral cavity grossly normal. NECK: JVD not raised; masses not palpable. HEART: First and second heart sounds are normal; no edema. LUNGS: Respiratory rate normal; clear to auscultation. ABDOMEN: Soft, no tenderness, with a dressing in place, GARCÍA drain-with some drainage, no guarding or rigidity, liver spleen not palpable, no masses palpable MUSCULOSKELETAL-evidence of OA especially in the hands and knees. PSYCH: Alert and oriented x3; mood and affect normal. INVESTIGATIONS, reviewed in the clinical context: White count 7.7. Weight 0.9 potassium 3.8 creatinine 0.54 Previous testing White count 15.4 hemoglobin 12 platelets 474 potassium 3.7 creatinine 6 AST 44 ALT 51 COVID-19 PCR-not detected Computed tomography scan of the abdomen and pelvis-suspected abscess 0.7 X 7.4 X 7.7 CM. SHOWING MODERATE WELL-DEFINED FLUID AND FAT SURROUNDING. Bone culture-streptococcus bovis, alphahemolytic streptococcus ASSESSMENT: -Acute pelvic abscess from a appendiceal abscess, that was drained with terminal ileum and right hemicolectomy. Cultures growing Streptococcus bovis and alphahemolytic streptococcus -Hyperlipidemia -Essential hypertension -Hypothyroid -Acute postprocedure blood loss anemia as expected from surgery -Patient is having multiple stools. Post likely antibiotic associated diarrhea. But we'll rule out C. diff Plan: -Remains on IV Zosyn. Sandoz 2 for C. diff. Care was discussed with the patient. Patient to be switched over to oral Augmentin upon discharge. We'll add some Metamucil to contain the loose stools. Thank you Dr. Cruz
[2020-03-17] MEDS: ASPIRIN 325 MG TAB PO SCH (22:03)
[2020-03-17] MEDS: ATORVASTATIN 10 MG TAB PO SCH (22:03)
[2020-03-17] MEDS: PSYLLIUM HUSK 100% 6 GM PACKET PO SCH (22:03)
[2020-03-17] MEDS: SODIUM CHLORIDE 0.9% 1,000 ML IV SCH (22:38)
--- NOTE | 2020-03-17 23:46 | PN ---
PROGRESS NOTE DATE OF SERVICE: 03/17/2020 REASON FOR FOLLOWUP: Abdominal abscess from perforated sigmoid diverticulitis. INTERVAL HISTORY: The patient is currently afebrile. The patient is breathing comfortably. Denies having any chest pain, shortness of breath or cough. No nausea, no vomiting. No abdominal pain. No diarrhea. PHYSICAL EXAMINATION: Blood pressure 124/75 with a pulse of 80, temperature of 97.8. She is 98% on room air. General description is an elderly female up in the chair in no distress. RESPIRATORY SYSTEM: Unlabored breathing, clear to auscultation anteriorly. HEART: S1, S2. Regular rate and rhythm. ABDOMEN: Soft, no tenderness. LABS: No new labs have been obtained today. DIAGNOSTIC IMPRESSION AND PLAN: Patient with abdominal abscess from perforated appendicitis, status post ileocolectomy and laparotomy and drainage of the abscess. Culture with sensitive pathogen currently on Zosyn. Finish therapy with short course of oral Augmentin and continue with supportive care. MMODL / IJN: [id number] /
[2020-03-18] MEDS: LEVOTHYROXINE 88 MCG TAB PO SCH (06:00)
[2020-03-18] MEDS: HEPARIN SODIUM,PORCINE 5,000 UNIT/ML 1 ML VIAL SQ SCH ×2 (07:34→15:36)
[2020-03-18] MEDS: HYDROCHLOROTHIAZIDE 50 MG TAB PO SCH (07:34)
[2020-03-18] MEDS: PIPERACILLIN-TAZOBACTAM 3.375 GM in SODIUM CHLORIDE 0.9% 100 ML IVPB SCH ×2 (07:34→15:32)
[2020-03-18] MEDS: PSYLLIUM HUSK 100% 6 GM PACKET PO SCH ×3 (07:35→20:29)
--- NOTE | 2020-03-18 13:55 | P.PN ---
Subjective Progress Note Date: 03/18/20 CHIEF COMPLAINT: Abdominal pain HISTORY OF PRESENT ILLNESS: Patient is status post drainage of pelvic abscess and ileocolectomy. Patient examined at the bedside. Patient is passing flatus and having bowel movements. Patient reports her abdominal pain is tolerable. Vital signs are stable. PHYSICAL EXAM: VITAL SIGNS: Reviewed. GENERAL: Well-developed in no acute distress. HEENT: No sclera icterus. Extraocular movements grossly intact. Moist buccal mucosa. Head is atraumatic, normocephalic. ABDOMEN: Soft. Nondistended. Dressing clean dry intact. GARCÍA drain to right lower quadrant with sanguineous drainage. NEUROLOGIC: Alert and oriented. Cranial nerves II through XII grossly intact. ASSESSMENT: 1. Abdominal pain 2. Intrapelvic abscess, suspect secondary to appendicitis PLAN: -Continue antibiotics. Infectious disease on consult -Incentive spirometer -Activity as tolerated -Monitor GARCÍA drain output -Continue diet as tolerated Nurse practitioner note has been reviewed by physician. Signing provider agrees with the documented findings, assessment, and plan of care. Objective - Vital Signs Vital signs: Vital Signs Temp 98.2 F 03/18/20 07:00 Pulse 61 03/18/20 07:34 Resp 18 03/18/20 07:34 BP 122/61 03/18/20 07:00 Pulse Ox 96 03/18/20 07:00 Intake & Output 03/17/20 03/18/20 03/18/20 18:59 06:59 18:59 Intake Total 100 200 Output Total 50 20 42 Balance 50 180 -42 Weight 83.518 kg Intake: IV 100 Piperacillin-Tazobactam 3 100 .375 gm In Sodium Chloride 0.9% 100 ml @ 25 mls/hr IVPB Q8HR [facility] Rx# :[id number] Oral 200 Output: Drainage 50 20 40 Abdomen 50 20 40 Stool 2 Other: Voiding Method Toilet Toilet # Voids 2 - Labs CBC & Chem 7: 03/15/20 09:12 03/15/20 09:12
[2020-03-18] MEDS: HYDROmorphone 0.5 MG/0.5 ML SYRINGE IVP PRN ×2 (15:34→20:28)
[2020-03-18] MEDS: LISINOPRIL 5 MG TAB PO SCH (15:36)
[2020-03-18] MEDS: POTASSIUM CHLORIDE ER 20 MEQ TAB.ER PO SCH (15:36)
[2020-03-18] MEDS: ATORVASTATIN 10 MG TAB PO SCH (20:28)
[2020-03-18] MEDS: ASPIRIN 325 MG TAB PO SCH (20:28)
--- NOTE | 2020-03-18 22:27 | P.PN ---
Progress Note - Text Progress Note Date: 03/18/20 - Chief Complaint Abdominal pain Consultation: Patient is seen by me this morning. This is a pleasant 69-year-old patient of Dr. Wei. Chronic stable medical conditions include hyperlipidemia, hypertension, hypothyroid. Patient was treated for hepatitis B in the past. For 2 weeks patient been having right lower quadrant pain progressively getting worse. She was treated by her PCP for UTI in the meantime. Patient started having fever and chills. Nausea. The pain was intermittently getting worse. Predominantly the right lower quadrant. Presented to the ER. Computed tomography scan the ER showed a probable abscess. Patient's earlier seen by Dr. Cruz from general surgery. This is going down for surgery this afternoon. Patient otherwise rather active and no cardiac history. Denies any chest pain or shortness of breath. Good exercise tolerance. Admitted with a pelvic abscess. Taken to the OR on March [address] Cruz. Abscess was drained. With terminal ileum and right hemicolectomy. Patient has a GARCÍA drain. Today-tolerating a diet. Still having some loose stools. Otherwise feeling well. Up in a chair. Up to the bathroom. Review of systems: Was done for constitutional, cardiovascular, GI, pulmonary. relevant finding as above Active Medications Aspirin (Aspirin) 325 mg PO HS [facility] Last Admin: 03/18/20 20:28 Dose: 325 mg Documented by: Atorvastatin Calcium (Lipitor) 10 mg PO HS [facility] Last Admin: 03/18/20 20:28 Dose: 10 mg Documented by: Heparin Sodium (Porcine) (Heparin) 5,000 unit SQ Q8HR [facility] Last Admin: 03/18/20 15:36 Dose: 5,000 unit Documented by: Hydrochlorothiazide (Hydrodiuril) 50 mg PO DAILY [facility] Last Admin: 03/18/20 07:34 Dose: 50 mg Documented by: Hydromorphone HCl (Dilaudid) 0.5 mg IVP Q3HR PRN PRN Reason: Moderate Pain Last Admin: 03/18/20 20:28 Dose: 0.5 mg Documented by: Piperacillin Sod/Tazobactam (Sod 3.375 gm/ Sodium Chloride) 100 mls @ 25 mls/hr IVPB Q8HR [facility] Last Admin: 03/18/20 15:32 Dose: 25 mls/hr Documented by: Levothyroxine Sodium (Synthroid) 88 mcg PO DAILY@0600 [facility] Last Admin: 03/18/20 06:00 Dose: 88 mcg Documented by: Lisinopril (Zestril) 5 mg PO DAILY@1500 [facility] Last Admin: 03/18/20 15:36 Dose: 5 mg Documented by: Naloxone HCl (Narcan) 0.2 mg IV Q2M PRN PRN Reason: Opioid Reversal Ondansetron HCl (Zofran) 4 mg IVP Q8HR PRN PRN Reason: Nausea And Vomiting Potassium Chloride (K-Dur 20) 20 meq PO DAILY@1500 [facility] Last Admin: 03/18/20 15:36 Dose: 20 meq Documented by: Psyllium Hydrophilic Mucilloid (Metamucil) 6 gm PO BID [facility] Last Admin: 03/18/20 20:29 Dose: 3 gm Documented by: Physical examination: VITAL SIGNS: 99, 77, 18, 114/68, 95% on room air GENERAL: Sitting upon a chair, comfortable EYES: Pupils equal. Conjunctiva normal. HEENT: External appearance of nose and ears normal, oral cavity grossly normal. NECK: JVD not raised; masses not palpable. HEART: First and second heart sounds are normal; no edema. LUNGS: Respiratory rate normal; clear to auscultation. ABDOMEN: Soft, no tenderness, with a dressing in place, GARCÍA drain-with some drainage, no guarding or rigidity, liver spleen not palpable, no masses palpable MUSCULOSKELETAL-evidence of OA especially in the hands and knees. PSYCH: Alert and oriented x3; mood and affect normal. INVESTIGATIONS, reviewed in the clinical context: White count 7.7. Weight 0.9 potassium 3.8 creatinine 0.54 C. diff-negative Previous testing White count 15.4 hemoglobin 12 platelets 474 potassium 3.7 creatinine 6 AST 44 ALT 51 COVID-19 PCR-not detected Computed tomography scan of the abdomen and pelvis-suspected abscess 0.7 X 7.4 X 7.7 CM. SHOWING MODERATE WELL-DEFINED FLUID AND FAT SURROUNDING. Bone culture-streptococcus bovis, alphahemolytic streptococcus ASSESSMENT: -Acute pelvic abscess from a appendiceal abscess, that was drained with terminal ileum and right hemicolectomy. Cultures growing Streptococcus bovis and alphahemolytic streptococcus -Hyperlipidemia -Essential hypertension -Hypothyroid -Acute postprocedure blood loss anemia as expected from surgery - antibiotic associated diarrhea. C. diff ruled out Plan: on IV Zosyn. Metamucil was added yesterday. Discussed with the patient. Check labs in the morning. Thank you Dr. Cruz
[2020-03-19] MEDS: HEPARIN SODIUM,PORCINE 5,000 UNIT/ML 1 ML VIAL SQ SCH ×4 (00:02→23:57)
[2020-03-19] MEDS: PIPERACILLIN-TAZOBACTAM 3.375 GM in SODIUM CHLORIDE 0.9% 100 ML IVPB SCH ×3 (00:02→15:58)
[2020-03-19] MEDS: LEVOTHYROXINE 88 MCG TAB PO SCH (05:35)
[2020-03-19 07:33] LABS: HCT 30.3 % (34.0-46.0); HGB 9.8 gm/dL (11.4-16.0); Hypochromasia Moderate; MCH 30.9 pg (25.0-35.0); MCHC 32.3 g/dL (31.0-37.0); MCV 95.4 fL (80.0-100.0); Mean Platelet Volume 6.9; Platelet Count 625 k/uL (150-450); RBC 3.18 m/uL (3.80-5.40); RDW 14.1 % (11.5-15.5); WBC 5.9 k/uL (3.8-10.6)
[2020-03-19 07:38] LABS: African American GFR (CKD) >90 (>60 ml/min/1.73 sqM); Anion Gap 5 mmol/L; Blood Urea Nitrogen 8 mg/dL (7-17); Calcium 8.5 mg/dL (8.4-10.2); Carbon Dioxide 27 mmol/L (22-30); Chloride 102 mmol/L (98-107); Glucose 91 mg/dL (74-99); Non-African American GFR(CKD) 89 (>60 ml/min/1.73 sqM); Potassium 4.1 mmol/L (3.5-5.1); Sodium 134 mmol/L (137-145)
[2020-03-19] MEDS: PSYLLIUM HUSK 100% 6 GM PACKET PO SCH ×2 (07:56→20:19)
[2020-03-19] MEDS: HYDROCHLOROTHIAZIDE 50 MG TAB PO SCH (07:56)
[2020-03-19] MEDS: LOPERAMIDE 2 MG CAP PO SCH ×3 (07:56→21:36)
--- NOTE | 2020-03-19 10:57 | P.PN ---
Subjective Progress Note Date: 03/19/20 Principal diagnosis: Pelvic abscess Patient doing fairly well today. T-max 99. White blood cell count 5.9. Tolerating regular diet. Drain is serosanguineous. She did have a bowel movement today. Objective - Vital Signs Vital signs: Vital Signs Temp 97.3 F L 03/19/20 07:00 Pulse 73 03/19/20 07:00 Resp 19 03/19/20 07:00 BP 112/67 03/19/20 07:00 Pulse Ox 95 03/19/20 07:00 Intake & Output 03/18/20 03/19/20 03/19/20 18:59 06:59 18:59 Intake Total 100 100 Output Total 82 120 Balance 18 -20 Weight 83.518 kg Intake: IV 100 Piperacillin-Tazobactam 3 100 .375 gm In Sodium Chloride 0.9% 100 ml @ 25 mls/hr IVPB Q8HR [facility] Rx# :[id number] Oral 100 Output: Drainage 80 120 Abdomen 80 120 Stool 2 Other: Voiding Method Toilet Toilet # Voids 1 - Exam Abdomen: Soft, nondistended, mild tenderness, dressing clean and dry - Labs CBC & Chem 7: 03/19/20 07:02 03/19/20 07:02 Labs: Abnormal Lab Results - Last 24 Hours (Table) 03/19/20 03/19/20 Range/Units 07:02 07:02 RBC 3.18 L (3.80-5.40) m/uL Hgb 9.8 L (11.4-16.0) gm/dL Hct 30.3 L (34.0-46.0) % Plt Count 625 H (150-450) k/uL Sodium 134 L (137-145) mmol/L Assessment and Plan (1) Intra-abdominal abscess Narrative/Plan: Continue IV antibiotics. Continue diet as tolerated. Increase activity. Current Visit: Yes Status: Acute Code(s): K65.1 - PERITONEAL ABSCESS SNOMED Code(s): 67783936
[2020-03-19] MEDS: HYDROmorphone 0.5 MG/0.5 ML SYRINGE IVP PRN (13:06)
[2020-03-19] MEDS: LISINOPRIL 5 MG TAB PO SCH (15:42)
[2020-03-19] MEDS: POTASSIUM CHLORIDE ER 20 MEQ TAB.ER PO SCH (15:42)
[2020-03-19] MEDS ORDERED: HYDROcodone/APAP 5-325MG 1 EACH TAB PO PRN (16:41)
[2020-03-19] MEDS ORDERED: IBUPROFEN 600 MG TAB PO PRN (16:42)
[2020-03-19] MEDS: ASPIRIN 325 MG TAB PO SCH (20:19)
[2020-03-19] MEDS: ATORVASTATIN 10 MG TAB PO SCH (20:19)
--- NOTE | 2020-03-19 22:57 | P.PN ---
Progress Note - Text Progress Note Date: 03/19/20 - Chief Complaint Abdominal pain Consultation: Patient is seen by me this morning. This is a pleasant 69-year-old patient of Dr. Wei. Chronic stable medical conditions include hyperlipidemia, hypertension, hypothyroid. Patient was treated for hepatitis B in the past. For 2 weeks patient been having right lower quadrant pain progressively getting worse. She was treated by her PCP for UTI in the meantime. Patient started having fever and chills. Nausea. The pain was intermittently getting worse. Predominantly the right lower quadrant. Presented to the ER. Computed tomography scan the ER showed a probable abscess. Patient's earlier seen by Dr. Cruz from general surgery. This is going down for surgery this afternoon. Patient otherwise rather active and no cardiac history. Denies any chest pain or shortness of breath. Good exercise tolerance. Admitted with a pelvic abscess. Taken to the OR on March [address] Cruz. Abscess was drained. With terminal ileum and right hemicolectomy. Patient has a GARCÍA drain. Today-diarrhea improving. Decreased intermittent abdominal pain. Rather cheerful. Tolerating a diet. GARCÍA drain in place.withr drainage. Review of systems: Was done for constitutional, cardiovascular, GI, pulmonary. relevant finding as above Active Medications Hydrocodone Bitart/Acetaminophen ([place] 5-325) 1 each PO Q4HR PRN PRN Reason: Pain Last Admin: 03/19/20 20:27 Dose: 1 each Documented by: Amoxicillin/Clavulanate Potassium (Augmentin 875-125) 1 each PO Q12HR [facility] Aspirin (Aspirin) 325 mg PO HS [facility] Last Admin: 03/19/20 20:19 Dose: 325 mg Documented by: Atorvastatin Calcium (Lipitor) 10 mg PO HS [facility] Last Admin: 03/19/20 20:19 Dose: 10 mg Documented by: Heparin Sodium (Porcine) (Heparin) 5,000 unit SQ Q8HR [facility] Last Admin: 03/19/20 15:42 Dose: 5,000 unit Documented by: Hydrochlorothiazide (Hydrodiuril) 50 mg PO DAILY [facility] Last Admin: 03/19/20 07:56 Dose: 50 mg Documented by: Hydromorphone HCl (Dilaudid) 0.5 mg IVP Q3HR PRN PRN Reason: Moderate Pain Last Admin: 03/19/20 13:06 Dose: 0.5 mg Documented by: Ibuprofen (Motrin) 600 mg PO QID PRN PRN Reason: Mild to Moderate Pain Levothyroxine Sodium (Synthroid) 88 mcg PO DAILY@0600 [facility] Last Admin: 03/19/20 05:35 Dose: 88 mcg Documented by: Lisinopril (Zestril) 5 mg PO DAILY@1500 [facility] Last Admin: 03/19/20 15:42 Dose: 5 mg Documented by: Loperamide HCl (Imodium) 2 mg PO TID [facility] Last Admin: 03/19/20 21:36 Dose: 2 mg Documented by: Naloxone HCl (Narcan) 0.2 mg IV Q2M PRN PRN Reason: Opioid Reversal Ondansetron HCl (Zofran) 4 mg IVP Q8HR PRN PRN Reason: Nausea And Vomiting Potassium Chloride (K-Dur 20) 20 meq PO DAILY@1500 [facility] Last Admin: 03/19/20 15:42 Dose: 20 meq Documented by: Psyllium Hydrophilic Mucilloid (Metamucil) 6 gm PO BID [facility] Last Admin: 03/19/20 20:19 Dose: 3 gm Documented by: Physical examination: VITAL SIGNS: 98.2, 92, 15, 102/63, 96% room air GENERAL: Sitting upon a chair, comfortable EYES: Pupils equal. Conjunctiva normal. HEENT: External appearance of nose and ears normal, oral cavity grossly normal. NECK: JVD not raised; masses not palpable. HEART: First and second heart sounds are normal; no edema. LUNGS: Respiratory rate normal; clear to auscultation. ABDOMEN: Soft, no tenderness, with a dressing in place, GARCÍA drain-with some drainage, no guarding or rigidity, liver spleen not palpable, no masses palpable MUSCULOSKELETAL-evidence of OA especially in the hands and knees. PSYCH: Alert and oriented x3; mood and affect normal. INVESTIGATIONS, reviewed in the clinical context: white count 5.9 hemoglobin and potassium will Previous testing White count 15.4 hemoglobin 12 platelets 474 potassium 3.7 creatinine 6 AST 44 ALT 51 COVID-19 PCR-not detected Computed tomography scan of the abdomen and pelvis-suspected abscess 0.7 X 7.4 X 7.7 CM. SHOWING MODERATE WELL-DEFINED FLUID AND FAT SURROUNDING. Bone culture-streptococcus bovis, alphahemolytic streptococcus ASSESSMENT: -Acute pelvic abscess from a appendiceal abscess, that was drained with terminal ileum and right hemicolectomy. Cultures growing Streptococcus bovis and alphahemolytic streptococcus -Hyperlipidemia -Essential hypertension -Hypothyroid -Acute postprocedure blood loss anemia as expected from surgery - antibiotic associated diarrhea. C. diff ruled out Plan: IV Zosyn changed over to Augmentin. Metamucil to continue. Improving. Imodium added. Thank you Dr. Cruz
[2020-03-19] MEDS: AMOXIC-POT CLAV 875-125MG 1 EACH TAB PO SCH (23:57)
--- NOTE | 2020-03-20 00:37 | PN ---
PROGRESS NOTE DATE OF SERVICE: 03/19/2020 REASON FOR FOLLOWUP: Abdominal abscess from perforated appendicitis. INTERVAL HISTORY: The patient is currently afebrile. Patient is breathing comfortably. The patient denies having any chest pain. No shortness of breath or cough. Abdominal pain is currently controlled. No nausea, vomiting. No diarrhea. The patient has lost her IV access site. PHYSICAL EXAMINATION: Blood pressure 96/52 with a pulse of 74, temperature 99. She is 93% on room air. General description is an elderly female lying in bed in no distress. Respiratory system: Unlabored breathing, clear to auscultation anteriorly. Heart S1, S2. Regular rate and rhythm. Abdomen soft, no tenderness. LABS: Hemoglobin 9.1, white count of 5.9, BUN of 8, creatinine 0.66. DIAGNOSTIC IMPRESSION AND PLAN: Patient with abdominal abscess from perforated appendix, status post laparotomy and ileocolectomy. Abdominal culture was sensitive pathogen. With the patient losing her IV access we will discontinue Zosyn and start the patient on oral Augmentin. Monitor clinical course closely. MMODL / IJN: [id number] /
[2020-03-20] MEDS: LEVOTHYROXINE 88 MCG TAB PO SCH (05:21)
[2020-03-20] MEDS: AMOXIC-POT CLAV 875-125MG 1 EACH TAB PO SCH (07:18)
[2020-03-20] MEDS: HEPARIN SODIUM,PORCINE 5,000 UNIT/ML 1 ML VIAL SQ SCH (07:18)
[2020-03-20] MEDS: HYDROCHLOROTHIAZIDE 50 MG TAB PO SCH (07:19)
[2020-03-20] MEDS: LOPERAMIDE 2 MG CAP PO SCH (07:19)
[2020-03-20] MEDS: PSYLLIUM HUSK 100% 6 GM PACKET PO SCH (07:19)
[2020-03-20 07:51] VITALS: PULSE 65; RESP 18; TEMP 98.7
[2020-03-20 08:27] VITALS: BP 89/53
--- NOTE | 2020-03-20 14:07 | P.PN ---
Subjective Progress Note Date: 03/20/20 Principal diagnosis: Pelvic abscess Patient doing well today. IV came out yesterday. She has been switched to oral antibiotics. Pain is controlled with oral meds. One bowel movement. No nausea or vomiting. Tolerating diet. GARCÍA drain serosanguineous. Objective - Vital Signs Vital signs: Vital Signs Temp 98.7 F 03/20/20 07:00 Pulse 65 03/20/20 07:00 Resp 18 03/20/20 08:00 BP 89/53 03/20/20 08:27 Pulse Ox 96 03/20/20 07:00 Intake & Output 03/19/20 03/20/20 03/20/20 18:59 06:59 18:59 Intake Total 800 200 200 Output Total 30 41 Balance 770 159 200 Intake: IV 100 100 Piperacillin-Tazobactam 3 100 100 .375 gm In Sodium Chloride 0.9% 100 ml @ 25 mls/hr IVPB Q8HR [facility] Rx# :[id number] Oral 700 100 200 Output: Drainage 30 40 Abdomen 30 40 Urine 1 Other: Voiding Method Toilet Toilet # Voids 1 - Exam Abdomen: Soft, nondistended, incision clean and dry, GARCÍA intact serosanguineous - Labs CBC & Chem 7: 03/19/20 07:02 03/19/20 07:02 Assessment and Plan (1) Intra-abdominal abscess Narrative/Plan: Anticipated discharge today if cleared by consultants. Home on oral antibiotics. Follow-up with Dr. Cruz later this week. Keep drain in place. Status: Acute Code(s): K65.1 - PERITONEAL ABSCESS SNOMED Code(s): 11839496
--- NOTE | 2020-03-20 21:43 | P.PN ---
Progress Note - Text Progress Note Date: 03/20/20 - Chief Complaint Abdominal pain Consultation: Patient is seen by me this morning. This is a pleasant 69-year-old patient of Dr. Wei. Chronic stable medical conditions include hyperlipidemia, hypertension, hypothyroid. Patient was treated for hepatitis B in the past. For 2 weeks patient been having right lower quadrant pain progressively getting worse. She was treated by her PCP for UTI in the meantime. Patient started having fever and chills. Nausea. The pain was intermittently getting worse. Predominantly the right lower quadrant. Presented to the ER. Computed tomography scan the ER showed a probable abscess. Patient's earlier seen by Dr. Cruz from general surgery. This is going down for surgery this afternoon. Patient otherwise rather active and no cardiac history. Denies any chest pain or shortness of breath. Good exercise tolerance. Admitted with a pelvic abscess. Taken to the OR on March [address] Cruz. Abscess was drained. With terminal ileum and right hemicolectomy. Patient has a GARCÍA drain. Today-. Very much improved. Tolerating diet. Up and about. Excited to go home. Abdominal pain much improved. Review of systems: Was done for constitutional, cardiovascular, GI, pulmonary. relevant finding as above Today his medications reviewed in the electronic records Physical examination: VITAL SIGNS: 98.7, 65, 18, 8249, 96% GENERAL: Sitting upon a chair, comfortable EYES: Pupils equal. Conjunctiva normal. HEENT: External appearance of nose and ears normal, oral cavity grossly normal. NECK: JVD not raised; masses not palpable. HEART: First and second heart sounds are normal; no edema. LUNGS: Respiratory rate normal; clear to auscultation. ABDOMEN: Soft, no tenderness, with a dressing in place, GARCÍA drain-with some drainage, no guarding or rigidity, liver spleen not palpable, no masses palpable MUSCULOSKELETAL-evidence of OA especially in the hands and knees. PSYCH: Alert and oriented x3; mood and affect normal. INVESTIGATIONS, reviewed in the clinical context: White count 5.9 and hemoglobin 9.8 platelet 625 potassium 4.1 creatinine 0.66 Previous testing White count 15.4 hemoglobin 12 platelets 474 potassium 3.7 creatinine 6 AST 44 ALT 51 COVID-19 PCR-not detected Computed tomography scan of the abdomen and pelvis-suspected abscess 0.7 X 7.4 X 7.7 CM. SHOWING MODERATE WELL-DEFINED FLUID AND FAT SURROUNDING. Bone culture-streptococcus bovis, alphahemolytic streptococcus ASSESSMENT: -Acute pelvic abscess from a appendiceal abscess, that was drained with terminal ileum and right hemicolectomy. Cultures growing Streptococcus bovis and alphahemolytic streptococcus -Hyperlipidemia -Essential hypertension -Hypothyroid -Acute postprocedure blood loss anemia as expected from surgery - antibiotic associated diarrhea. C. diff ruled out Plan: Patient doing much better. Continue current medication treatment plan. Discharge decision as per surgery. Thank you Dr. Cruz
== END 2020-03-20 12:33 | disposition home or self-care (01) | DRG 853 ==
LOC: EC 17:46 → 4SSUR 20:19
PROVIDERS: ADMIT Surgery; ATTEND Surgery
PROC: 0DBB0ZZ Excision of Ileum, Open Approach (ICD-10-PCS; principal; 2020-03-09 08:00)
PROC: 0D9 Gastrointestinal System, Drainage (ICD-10-PCS; principal; 2020-03-09 08:00)
PROC: 0DBF0ZZ Excision of Right Large Intestine, Open Approach (ICD-10-PCS; 2020-03-09 08:00)
DX: A41.9 Sepsis, unspecified organism (principal); K35.33 Acute appendicitis with perforation, localized peritonitis, and gangrene, with abscess; D62 Acute posthemorrhagic anemia; E87.1 Hypo-osmolality and hyponatremia; K57.00 Diverticulitis of small intestine with perforation and abscess without bleeding; K56.7 Ileus, unspecified; K57.20 Diverticulitis of large intestine with perforation and abscess without bleeding; N39.0 Urinary tract infection, site not specified; K52.1 Toxic gastroenteritis and colitis; A41.81 Sepsis due to Enterococcus; E03.9 Hypothyroidism, unspecified; E78.5 Hyperlipidemia, unspecified; I10 Essential (primary) hypertension; T36.95XA Adverse effect of unspecified systemic antibiotic, initial encounter; T50.2X5A Adverse effect of carbonic-anhydrase inhibitors, benzothiadiazides and other diuretics, initial encounter; Z79.82 Long term (current) use of aspirin; Z79.890 Hormone replacement therapy; Z79.899 Other long term (current) drug therapy; Z86.19 Personal history of other infectious and parasitic diseases; Z11.59 Encounter for screening for other viral diseases; M19.90 Unspecified osteoarthritis, unspecified site
CPT/HCPCS: 36415; 74177; 80048; 80053; 81001; 82150; 83605; 83690; 85025; 85027; 86850; 86900; 86901; 87070; 87077; 87186; 87205; 87324; 87635; 88307; 96360; 96361; 99285

== ENCOUNTER → 2020-05-13 | Outpatient (CLI) | payer MEDICARE ==
--- NOTE | 2020-05-19 14:39 | MM ---
Reason for exam: screening (asymptomatic). Last mammogram was performed 1 year and 2 months ago. History: Patient is postmenopausal. Benign excisional biopsy of the left breast. Physical Findings: A clinical breast exam by your physician is recommended on an annual basis and results should be correlated with mammographic findings. MG Screening Mammo w CAD Bilateral CC and MLO view(s) were taken. Prior study comparison: March 03, 2019, bilateral MG screening mammo w CAD. February 27, 2018, bilateral MG screening mammo w CAD. There are scattered fibroglandular densities. Focal asymmetry right outer middle position, a change from previous. This finding is changed when compared with previous exams. ASSESSMENT: Incomplete: need additional imaging evaluation, BI-RAD 0 RECOMMENDATION: Special view mammogram of the right breast. If lesion persists on supplemental views, image directed ultrasound is recommended. [facility] will attempt to contact patient to return for supplemental views and ultrasound if indicated.
== END | disposition home or self-care (01) ==
LOC: RADMAMWWP 10:43
PROVIDERS: ATTEND Family Medicine
DX: Z12.31 Encounter for screening mammogram for malignant neoplasm of breast (principal)
CPT/HCPCS: 77067

== ENCOUNTER → 2020-05-24 | Outpatient (CLI) | payer MEDICARE ==
--- NOTE | 2020-05-24 09:46 | MM ---
Reason for exam: additional evaluation requested from abnormal screening. Last mammogram was performed less than 1 month ago. History: Patient is postmenopausal. Benign excisional biopsy of the left breast. Physical Findings: Nurse did not find any significant physical abnormalities on exam. MG 3D Work Up W/Cad RT Spot compression CC, spot compression MLO, and LM view(s) were taken of the right breast. Prior study comparison: May 13, 2020, bilateral MG screening mammo w CAD. March 03, 2019, bilateral MG screening mammo w CAD. There is no discrete abnormality including area of concern. These results were verbally communicated with the patient and result sheet given to the patient on 05/24/20. ASSESSMENT: Probably benign, BI-RAD 3 RECOMMENDATION: Follow-up diagnostic mammogram of the right breast in 6 months.
== END | disposition home or self-care (01) ==
LOC: RADMAMWWP 08:48
PROVIDERS: ATTEND Family Medicine
DX: R92.8 Other abnormal and inconclusive findings on diagnostic imaging of breast (principal)
CPT/HCPCS: 77065; G0279; 77061

== ENCOUNTER → 2020-12-02 | Outpatient (CLI) | payer MEDICARE ==
--- NOTE | 2020-12-02 12:07 | MM ---
Reason for exam: follow-up at short interval from prior study. Last mammogram was performed 6 months ago. History: Patient is postmenopausal. Benign excisional biopsy of the left breast. Physical Findings: Nurse did not find any significant physical abnormalities on exam. MG Diagnostic Mammo RT w CAD CC and MLO view(s) were taken of the right breast. Prior study comparison: May 24, 2020, right breast MG 3d work up w/cad RT. May 13, 2020, bilateral MG screening mammo w CAD. There are scattered fibroglandular densities. Stable benign calcifications. No significant new findings when compared with previous films. These results were verbally communicated with the patient and result sheet given to the patient on 12/02/20. ASSESSMENT: Benign, BI-RAD 2 RECOMMENDATION: Return to routine screening mammogram schedule for both breasts. Back on schedule.
== END | disposition home or self-care (01) ==
LOC: RADMAMWWP 10:52
PROVIDERS: ATTEND Family Medicine
DX: R92.8 Other abnormal and inconclusive findings on diagnostic imaging of breast (principal)
CPT/HCPCS: 77065

== ENCOUNTER 2021-01-03 16:34 | Inpatient (IN) | payer MEDICARE ==
[2021-01-03] MEDS ORDERED: SODIUM CHLORIDE 0.9% 500 ML 500 ML IV STA (16:47)
--- NOTE | 2021-01-03 16:49 | ED ---
General Adult HPI - General Chief complaint: GI Bleed Stated complaint: GI Bleed Time Seen by Provider: 01/03/21 16:35 Source: EMS, RN notes reviewed, old records reviewed Mode of arrival: EMS Limitations: no limitations - History of Present Illness Initial comments: This is a 70-year-old female who presents emergency Department complaining of rectal bleeding. Patient states she had a colonoscopy yesterday. Patient states since noon she's had for almost which were all blood. Patient states she believes she lost quite a bit of blood. Patient states she's also lightheaded since this occurred. Patient denies any shortness of breath or palpitations. Patient denies any chest pain. Patient denies any abdominal pain or rectal pain. Patient denies being on blood thinners. - Related Data Home Medications Medication Instructions Recorded Confirmed Levothyroxine Sodium [Synthroid] 88 mcg PO DAILY@0600 02/18/14 01/03/21 Potassium Chloride 20 meq PO DAILY@1500 02/18/14 01/03/21 Simvastatin [Zocor] 20 mg PO HS 02/18/14 01/03/21 hydroCHLOROthiazide [Hydrodiuril] 50 mg PO DAILY@1500 02/18/14 01/03/21 lisinopriL [Zestril] 5 mg PO DAILY@1500 02/18/14 01/03/21 Allergies Allergy/AdvReac Type Severity Reaction Status Date / Time adhesive Allergy Rash/Hives Verified 01/03/21 17:26 Review of Systems ROS Statement: Those systems with pertinent positive or pertinent negative responses have been documented in the HPI. ROS Other: All systems not noted in ROS Statement are negative. Past Medical History Past Medical History: Hyperlipidemia, Hypertension Additional Past Medical History / Comment(s): + HEPATITIS B History of Any Multi-Drug Resistant Organisms: None Reported Past Surgical History: Section, Tonsillectomy, Tubal Ligation Additional Past Surgical History / Comment(s): Breast cyst removed - left Past Anesthesia/Blood Transfusion Reactions: No Reported Reaction Past Psychological History: No Psychological Hx Reported Smoking Status: Never smoker Past Alcohol Use History: None Reported Past Drug Use History: None Reported - Past Family History Mother Family Medical History: Cancer Father Family Medical History: Cancer General Exam - General Exam Comments Initial Comments: GENERAL: Patient is well-developed and well-nourished. Patient is nontoxic and well- hydrated and is in mild distress. ENT: Neck is soft and supple. No significant lymphadenopathy is noted. Oropharynx is clear. Moist mucous membranes. Neck has full range of motion without eliciting any pain. EYES: The sclera were anicteric and conjunctiva were pink and moist. Extraocular movements were intact and pupils were equal round and reactive to light. Eyelids were unremarkable. PULMONARY: Unlabored respirations. Good breath sounds bilaterally. No audible rales rhonchi or wheezing was noted. CARDIOVASCULAR: There is a regular rate and rhythm without any murmurs gallops or rubs. ABDOMEN: Soft and nontender with normal bowel sounds. SKIN: Skin is clear with no lesions or rashes and otherwise unremarkable. NEUROLOGIC: Patient is alert and oriented x3. Cranial nerves II through XII are grossly intact. Motor and sensory are also intact. Normal speech, volume and content. Symmetrical smile. MUSCULOSKELETAL: Normal extremities with adequate strength and full range of motion. LYMPHATICS: No significant lymphadenopathy is noted PSYCHIATRIC: Normal psychiatric evaluation. Limitations: no limitations Course Vital Signs 01/03/21 01/03/21 01/03/21 16:36 20:00 21:00 Temperature 97.7 F Pulse Rate 74 84 92 Respiratory 18 18 18 Rate Blood Pressure 146/74 114/60 124/57 O2 Sat by Pulse 100 99 99 Oximetry 01/03/21 01/03/21 22:00 23:17 Temperature 97.7 F Pulse Rate 92 92 Respiratory 18 18 Rate Blood Pressure 103/46 O2 Sat by Pulse 99 99 Oximetry Medical Decision Making - Medical Decision Making EKG shows normal sinus rhythm at 73 bpm [place] interval 234 QRS is 84 QT interval 3 92 QTC is 431. Patient's EKG shows no ST segment elevation or depression. Patient's hemoglobin was slightly low. Patient's potassium was low at 2.8 and started replacement with IV potassium. - Lab Data Result diagrams: 01/04/21 02:35 01/04/21 02:35 Lab Results 01/03/21 01/03/21 01/03/21 Range/Units 16:54 16:54 16:54 WBC 11.9 H (3.8-10.6) k/uL RBC 3.56 L (3.80-5.40) m/uL Hgb 11.1 L (11.4-16.0) gm/dL Hct 32.8 L (34.0-46.0) % MCV 92.2 (80.0-100.0) fL MCH 31.1 (25.0-35.0) pg MCHC 33.7 (31.0-37.0) g/dL RDW 11.8 (11.5-15.5) % Plt Count 318 (150-450) k/uL MPV 6.8 Neutrophils % 82 % Lymphocytes % 11 % Monocytes % 5 % Eosinophils % 1 % Basophils % 1 % Neutrophils # 9.8 H (1.3-7.7) k/uL Lymphocytes # 1.3 (1.0-4.8) k/uL Monocytes # 0.5 (0-1.0) k/uL Eosinophils # 0.2 (0-0.7) k/uL Basophils # 0.1 (0-0.2) k/uL PT 10.4 (9.0-12.0) sec INR 1.0 (<1.2) APTT 21.7 L (22.0-30.0) sec Sodium 129 L (137-145) mmol/L Potassium 2.8 L (3.5-5.1) mmol/L Chloride 93 L (98-107) mmol/L Carbon Dioxide 22 (22-30) mmol/L Anion Gap 14 mmol/L BUN 19 H (7-17) mg/dL Creatinine 0.64 (0.52-1.04) mg/dL Est GFR (CKD-EPI)AfAm >90 (>60 ml/min/1.73 sqM) Est GFR (CKD-EPI)NonAf 90 (>60 ml/min/1.73 sqM) Glucose 133 H (74-99) mg/dL Calcium 8.7 (8.4-10.2) mg/dL Total Bilirubin 0.7 (0.2-1.3) mg/dL AST 35 (14-36) U/L ALT 22 (4-34) U/L Alkaline Phosphatase 62 (38-126) U/L Troponin I (0.000-0.034) ng/mL Total Protein 6.2 L (6.3-8.2) g/dL Albumin 3.9 (3.5-5.0) g/dL Blood Type Blood Type Recheck Bld Type Recheck Status Antibody Screen Spec Expiration Date 01/03/21 01/03/21 Range/Units 16:54 16:54 WBC (3.8-10.6) k/uL RBC (3.80-5.40) m/uL Hgb (11.4-16.0) gm/dL Hct (34.0-46.0) % MCV (80.0-100.0) fL MCH (25.0-35.0) pg MCHC (31.0-37.0) g/dL RDW (11.5-15.5) % Plt Count (150-450) k/uL MPV Neutrophils % % Lymphocytes % % Monocytes % % Eosinophils % % Basophils % % Neutrophils # (1.3-7.7) k/uL Lymphocytes # (1.0-4.8) k/uL Monocytes # (0-1.0) k/uL Eosinophils # (0-0.7) k/uL Basophils # (0-0.2) k/uL PT (9.0-12.0) sec INR (<1.2) APTT (22.0-30.0) sec Sodium (137-145) mmol/L Potassium (3.5-5.1) mmol/L Chloride (98-107) mmol/L Carbon Dioxide (22-30) mmol/L Anion Gap mmol/L BUN (7-17) mg/dL Creatinine (0.52-1.04) mg/dL Est GFR (CKD-EPI)AfAm (>60 ml/min/1.73 sqM) Est GFR (CKD-EPI)NonAf (>60 ml/min/1.73 sqM) Glucose (74-99) mg/dL Calcium (8.4-10.2) mg/dL Total Bilirubin (0.2-1.3) mg/dL AST (14-36) U/L ALT (4-34) U/L Alkaline Phosphatase (38-126) U/L Troponin I <0.012 (0.000-0.034) ng/mL Total Protein (6.3-8.2) g/dL Albumin (3.5-5.0) g/dL Blood Type B Positive Blood Type Recheck B Pos Bld Type Recheck Status No Antibody Screen NEGATIVE Spec Expiration Date 01/06/2021 - 2353 Disposition Clinical Impression: Hypokalemia, GI bleed Disposition: ADMITTED IP TO THIS HOSP
[2021-01-03 17:03] LABS: Basophils # (A) 0.1 k/uL (0-0.2); Basophils % (A) 1 %; Eosinophils # (A) 0.2 k/uL (0-0.7); Eosinophils % (A) 1 %; HCT 32.8 % (34.0-46.0); HGB 11.1 gm/dL (11.4-16.0); Lymphocytes # (A) 1.3 k/uL (1.0-4.8); Lymphocytes % (A) 11 %; MCH 31.1 pg (25.0-35.0); MCHC 33.7 g/dL (31.0-37.0); MCV 92.2 fL (80.0-100.0); Mean Platelet Volume 6.8; Monocytes # (A) 0.5 k/uL (0-1.0); Monocytes % (A) 5 %; Neutrophils # (A) 9.8 k/uL (1.3-7.7); Neutrophils % (A) 82 %; Platelet Count 318 k/uL (150-450); RBC 3.56 m/uL (3.80-5.40); RDW 11.8 % (11.5-15.5); WBC 11.9 k/uL (3.8-10.6)
[2021-01-03 17:16] LABS: ALT 22 U/L (4-34); AST 35 U/L (14-36); African American GFR (CKD) >90 (>60 ml/min/1.73 sqM); Albumin 3.9 g/dL (3.5-5.0); Alkaline Phosphatase 62 U/L (38-126); Anion Gap 14 mmol/L; Blood Urea Nitrogen 19 mg/dL (7-17); Calcium 8.7 mg/dL (8.4-10.2); Carbon Dioxide 22 mmol/L (22-30); Chloride 93 mmol/L (98-107); Glucose 133 mg/dL (74-99); Non-African American GFR(CKD) 90 (>60 ml/min/1.73 sqM); Potassium 2.8 mmol/L (3.5-5.1); Sodium 129 mmol/L (137-145); Total Bilirubin 0.7 mg/dL (0.2-1.3); Total Protein 6.2 g/dL (6.3-8.2)
[2021-01-03 17:24] LABS: Prothrombin Time 10.4 sec (9.0-12.0)
[2021-01-03 17:27] LABS: Partial Thromboplastin Time 21.7 sec (22.0-30.0)
[2021-01-03] MEDS ORDERED: Potassium Replacement Protocol 1 EACH MISC MISCELLANE PRN (17:53)
[2021-01-03] MEDS ORDERED: SODIUM CHLORIDE 0.9% 1,000 ML IV ONE (18:41)
[2021-01-03] MEDS: POTASSIUM CHLORIDE 10 MEQ in WATER FOR INJECTION 1 100ML.BAG IVPB SCH ×5 (18:42→23:39)
[2021-01-03] MEDS: ATORVASTATIN 10 MG TAB PO SCH (21:26)
[2021-01-03 22:59] LABS: HCT 23.8 % (34.0-46.0); MCH 32.4 pg (25.0-35.0); MCHC 35.4 g/dL (31.0-37.0); MCV 91.6 fL (80.0-100.0); Platelet Count 218 k/uL (150-450); RDW 11.9 % (11.5-15.5); WBC 7.6 k/uL (3.8-10.6)
[2021-01-03 23:40] LABS: HGB 8.4 gm/dL (11.4-16.0)
[2021-01-04] MEDS: POTASSIUM CHLORIDE 10 MEQ in WATER FOR INJECTION 1 100ML.BAG IVPB SCH (00:46)
[2021-01-04 09:05] LABS: HCT 21.6 % (37.2-46.3); HGB 7.2 g/dL (12.0-15.0); MCH 30.8 pg (27.0-32.0); MCHC 33.3 g/dL (32.0-37.0); MCV 92.3 fL (80.0-97.0); Mean Platelet Volume 10.4 fL (9.5-12.2); Platelet Count 212 X 10*3/uL (140-440); RBC 2.34 X 10*6/uL (4.10-5.20); RDW 12.2 % (11.5-14.5); WBC 6.66 X 10*3/uL (4.50-10.00)
[2021-01-04] MEDS: LEVOTHYROXINE 88 MCG TAB PO SCH (09:18)
--- NOTE | 2021-01-04 10:20 | CONS ---
CONSULTATION DATE OF DICTATION: January 04, 2021 REASON FOR CONSULTATION: Acute post polypectomy lower GI bleed. HISTORY OF PRESENT ILLNESS: The patient is a 70-year-old pleasant white female who underwent an elective colonoscopy 2 days ago at [facility] as a part of screening for colorectal neoplasia. She was noted to have a 3 cm broad-based polyp in the proximal transverse colon closer to the ileocolic anastomosis. The polyp was removed by piecemeal snare polypectomy following which an Endoclip was placed to prevent a post polypectomy bleed. The patient did well after the procedure. She went home. Yesterday afternoon, at 11:30, she had an episode of large amount of bright red blood per rectum followed by 3 other episodes and the last one was around 3 p.m. She became somewhat dizzy and came to the emergency room and subsequently admitted to the hospital for further management. She did not have any further bowel movements or bleeding since 3 p.m. yesterday. She reports no abdominal pain. No nausea, no vomiting. She does not take any anticoagulants. PAST MEDICAL HISTORY: Significant for hypothyroidism, hypertension, hypercholesteremia. MEDICATIONS: Medications at home: Synthroid, potassium chloride, Zocor, hydrochlorothiazide and Zestril. ALLERGIES: None. SOCIAL HISTORY: No smoking. No alcohol use family. PAST SURGICAL HISTORY: , appendectomy, tonsillectomy and tubal ligation. FAMILY HISTORY: Mother had some cancer. REVIEW OF SYSTEMS: CARDIOPULMONARY: No chest pain or shortness of breath. GENITOURINARY: No dysuria or hematuria. MUSCULOSKELETAL: Unremarkable. SKIN: Unremarkable. ENDOCRINE: Unremarkable. PSYCHIATRIC: Unremarkable. NEUROLOGY: Unremarkable. ENT/VISION: Unremarkable. CONSTITUTIONAL: Some dizziness, but no fever, chills or night sweats. PHYSICAL EXAMINATION: She appears comfortable. Vital signs show a blood pressure of 101/62, pulse rate 86, temperature 98.5. HEENT EXAMINATION: Unremarkable. Conjunctivae pink. Sclerae anicteric. Oral cavity no lesions. NECK: No JVD or lymph node enlargement. CHEST: Clear to auscultation. HEART: Regular rate and rhythm. ABDOMEN: Soft. Bowel sounds are positive. No organomegaly. EXTREMITIES: No pedal edema. NEURO: She is alert and oriented x3. No focal deficits. LABS: WBC was 11.9, hemoglobin was 11.7, and this morning it is down to 7.2 g/dL. Rest of the labs are within normal limits. BUN is 19, creatinine 0.64. Sodium 128, potassium 2.8, chloride 93, CO2 of 22. IMPRESSION: 1. Acute post polypectomy lower gastrointestinal bleed. The patient had a colonoscopy on Saturday which is 2 days ago at [facility] and was noted to have a 3 cm broad-based polyp in the proximal transverse colon that was removed in a piecemeal fashion followed by Endoclip placement. She presented with multiple episodes of bright red blood per rectum that started yesterday afternoon and dropped her hemoglobin from 11.1-7.2 g/dL. She had no further bleeding for the last 16 hours. She is hemodynamically stable. 2. History of hypertension. 3. History of hypothyroidism. 4. History of hypercholesteremia. RECOMMENDATIONS: 1. I had a lengthy discussion with the patient regarding management of post polypectomy lower GI bleed. Since she did not have any bleeding in the last 16 hours, we will continue with conservative approach. Monitor CBC every 6 hours, transfuse if the hemoglobin is less than 7, and start her on a clear liquid diet. If she has recurrent bleeding, we will consider a repeat colonoscopy. 2. Will follow closely. Thank you for this consultation. MMRENARDL / IJN: [id number] /
[2021-01-04] MEDS ORDERED: lisinopriL 5 MG TAB PO SCH (15:00)
[2021-01-04] MEDS ORDERED: POTASSIUM CHLORIDE ER 20 MEQ TAB.ER PO SCH (15:00)
[2021-01-04 17:47] LABS: HCT 24.3 % (34.0-46.0); HGB 8.2 gm/dL (11.4-16.0); MCH 31.7 pg (25.0-35.0); MCHC 33.9 g/dL (31.0-37.0); MCV 93.5 fL (80.0-100.0); Mean Platelet Volume 6.8; Platelet Count 223 k/uL (150-450); WBC 5.2 k/uL (3.8-10.6)
--- NOTE | 2021-01-04 19:55 | P.HPIM ---
History of Present Illness H&P Date: 01/04/21 Chief Complaint: bleeding per rectum History of presenting complaint: This is a pleasant 70-year-old patient of Dr. Wei. Chronic stable medical conditions include hyperlipidemia, hypertension, hepatitis B. Patient underwent elective colonoscopy 2 days ago at [facility] as a part of screening for colorectal neoplasia. She was found over 3 cm broad placed polyp in the proximal transverse colon close to the ileocolic anastomosis. It was removed by piecemeal snare polypectomy followed which an Endo Clip was placed to prevent post-polypectomy bleed. She done well after procedure. Yesterday around no chills large amount of bright red blood per rectum followed by 34 more episodes last episode being on 3 PM yesterday. She became dizzy lightheaded tired decided to come to the ER.. Feels better this morning. No abdominal pain. No nausea vomiting. No abdominal pain Review of systems: GEN.: Tired EYES: None HEENT: None NECK: None RESPIRATORY: None CARDIOVASCULAR: None GASTROINTESTINAL: [As above GENITOURINARY: None MUSCULOSKELETAL: None LYMPHATICS: None HEMATOLOGICAL: None PSYCHIATRY: None NEUROLOGICAL: None Past medical history to include: Hypertension, hyperlipidemia, hepatitis B Social history: Denies history of smoking or alcohol. Son lives with her. Physical examination: VITAL SIGNS: 97.7, 74, 18, 146.74, 100% room air GENERAL: BMI 25.8, reclining in bed, comfortable. EYES: Pupils equal. Conjunctiva normal. HEENT: External appearance of nose and ears normal, oral cavity grossly normal. NECK: JVD not raised; masses not palpable. HEART: First and second heart sounds are normal; no edema. LUNGS: Respiratory rate normal; clear to auscultation. ABDOMEN: Soft, nontender, liver spleen not palpable, no masses palpable. PSYCH: Alert and oriented x3; mood and affect normal. NEUROLOGICAL: Cranial nerves grossly intact; no facial asymmetry, power and sensation grossly intact. LYMPHATICS: No lymph nodes palpable in the axilla and neck INVESTIGATIONS, reviewed in the clinical context: WBC 5.2 hemoglobin 7.2 platelets 2.2 Potassium 2.8 replaced, repeat 3.9 sodium 129 EKG tracing personally reviewed by me-normal sinus rhythm Assessment and plan: -Acute GI bleed secondary to post-polypectomy from colon, last bleeding. 3 PM yesterday. Normally these are self-limiting. Patient put on a clear liquid d iet. GI consulted -Acute GI blood loss anemia. Follow H&H. -Severe hypokalemia. Potassium replacement -Hyponatremia likely from increased water intake. -Hyperlipidemia, on Zocor -Essential hypertension, on Zestril, hold for now -Hypothyroid, continue Synthroid GI was consulted. Patient with eliquis. Follow H&H. Discussed with the patient. Keep a close eye blood pressure Past Medical History Past Medical History: Hyperlipidemia, Hypertension Additional Past Medical History / Comment(s): + HEPATITIS B History of Any Multi-Drug Resistant Organisms: None Reported Past Surgical History: Section, Tonsillectomy, Tubal Ligation Additional Past Surgical History / Comment(s): Breast cyst removed - left Past Anesthesia/Blood Transfusion Reactions: No Reported Reaction Past Psychological History: No Psychological Hx Reported Smoking Status: Never smoker Past Alcohol Use History: None Reported Past Drug Use History: None Reported - Past Family History Mother Family Medical History: Cancer Father Family Medical History: Cancer Medications and Allergies Home Medications Medication Instructions Recorded Confirmed Type Levothyroxine Sodium [Synthroid] 88 mcg PO DAILY@0600 02/18/14 01/03/21 History Potassium Chloride 20 meq PO DAILY@1500 02/18/14 01/03/21 History Simvastatin [Zocor] 20 mg PO HS 02/18/14 01/03/21 History hydroCHLOROthiazide [Hydrodiuril] 50 mg PO DAILY@1500 02/18/14 01/03/21 History lisinopriL [Zestril] 5 mg PO DAILY@1500 02/18/14 01/03/21 History Allergies Allergy/AdvReac Type Severity Reaction Status Date / Time adhesive Allergy Rash/Hives Verified 01/03/21 17:26 Physical Exam Vitals: Vital Signs Temp Pulse Pulse Resp BP BP Pulse Ox 01/04/21 04:08 98.5 F 86 16 101/62 100 01/03/21 23:37 97.9 F 102 H 18 162/73 100 01/03/21 23:17 97.7 F 92 18 103/46 99 01/03/21 22:00 92 18 99 01/03/21 21:00 92 18 124/57 99 01/03/21 20:00 84 18 114/60 99 03/16/21 16:36 97.7 F 74 18 146/74 100 Intake and Output 01/03/21 01/04/21 01/04/21 22:59 06:59 14:59 Intake Total 775 Balance 775 Intake: Intake, IV Titration 775 Amount Potassium Chloride 10 meq 100 In Water For Injection 1 100ml.bag @ 100 mls/hr IVPB Q1HR [facility] Rx#: [id number] Sodium Chloride 0.9% 1, 675 000 ml @ 75 mls/hr IV . [id number] Rx#:[id number] Other: # Voids 2 Weight 72.575 kg 72.575 kg Results CBC & Chem 7: 01/04/21 17:29 01/04/21 02:35 Labs: Abnormal Lab Results - Last 24 Hours (Table) 01/03/21 01/03/21 01/03/21 Range/Units 16:54 16:54 16:54 WBC 11.9 H (3.8-10.6) k/uL RBC 3.56 L (3.80-5.40) m/uL Hgb 11.1 L (11.4-16.0) gm/dL Hct 32.8 L (34.0-46.0) % Neutrophils # 9.8 H (1.3-7.7) k/uL APTT 21.7 L (22.0-30.0) sec Sodium 129 L (137-145) mmol/L Potassium 2.8 L (3.5-5.1) mmol/L Chloride 93 L (98-107) mmol/L BUN 19 H (7-17) mg/dL Glucose 133 H (74-99) mg/dL Total Protein 6.2 L (6.3-8.2) g/dL 01/03/21 01/04/21 Range/Units 22:42 02:35 WBC (3.8-10.6) k/uL RBC 2.60 L 2.34 L (3.80-5.40) m/uL Hgb 8.4 L D 7.2 L (11.4-16.0) gm/dL Hct 23.8 L 21.6 L (34.0-46.0) % Neutrophils # (1.3-7.7) k/uL APTT (22.0-30.0) sec Sodium (137-145) mmol/L Potassium (3.5-5.1) mmol/L Chloride (98-107) mmol/L BUN (7-17) mg/dL Glucose (74-99) mg/dL Total Protein (6.3-8.2) g/dL Thrombosis Risk Factor Assmnt - Choose All That Apply Each Factor Represents 1 point: Swollen legs (current) Other Risk Factors: Yes Each Risk Factor Represents 2 Points: Age 61-74 years Other congenital or acquired thrombophilia - If yes, enter type in comment: No Thrombosis Risk Factor Assessment Total Risk Factor Score: 3 Thrombosis Risk Factor Assessment Level: Moderate Risk
[2021-01-04] MEDS: ATORVASTATIN 10 MG TAB PO SCH (20:06)
[2021-01-04] MEDS: LACTATED RINGERS 1,000 ML IV SCH (20:09)
[2021-01-04 20:31] VITALS: PULSE 82; RESP 14
[2021-01-05 04:57] VITALS: BP 98/59; TEMP 97.8
[2021-01-05] MEDS: LACTATED RINGERS 1,000 ML IV SCH (05:38)
[2021-01-05] MEDS: LEVOTHYROXINE 88 MCG TAB PO SCH (06:21)
[2021-01-05 07:38] LABS: Basophils % (A) 1 %; Eosinophils # (A) 0.2 k/uL (0-0.7); Eosinophils % (A) 3 %; HCT 25.2 % (34.0-46.0); HGB 8.9 gm/dL (11.4-16.0); Lymphocytes % (A) 18 %; MCH 32.7 pg (25.0-35.0); MCHC 35.1 g/dL (31.0-37.0); MCV 93.1 fL (80.0-100.0); Mean Platelet Volume 7.5; Monocytes # (A) 0.3 k/uL (0-1.0); Monocytes % (A) 6 %; Neutrophils # (A) 3.8 k/uL (1.3-7.7); Neutrophils % (A) 71 %; Platelet Count 244 k/uL (150-450); RBC 2.71 m/uL (3.80-5.40); RDW 12.1 % (11.5-15.5); WBC 5.3 k/uL (3.8-10.6)
[2021-01-05 08:05] LABS: African American GFR (CKD) >90 (>60 ml/min/1.73 sqM); Anion Gap 8 mmol/L; Blood Urea Nitrogen 9 mg/dL (7-17); Calcium 8.7 mg/dL (8.4-10.2); Carbon Dioxide 24 mmol/L (22-30); Chloride 103 mmol/L (98-107); Glucose 98 mg/dL (74-99); Non-African American GFR(CKD) >90 (>60 ml/min/1.73 sqM); Potassium 3.7 mmol/L (3.5-5.1); Sodium 135 mmol/L (137-145)
--- NOTE | 2021-01-05 13:40 | P.PN ---
Subjective Progress Note Date: 01/05/21 Principal diagnosis: Acute post polypectomy lower GI bleed A pleasant 70-year-old female who underwent an elective colonoscopy Saturday [facility] as part of screening for colorectal neoplasia. She was noted to have 3 cm broad-based polyp in the proximal transverse colon closer to the ileocolic anastomosis. The polyp was removed by piecemeal snare polypectomy following which an Endo Clip was placed to prevent a post polypectomy bleed. Patient developed well after the procedure. She went home and Saturday afternoon around 11:30 she had an episode of large amount of bright red blood per rectum followed by 3 other episodes in the last one ending around 3 PM on Saturday. She became somewhat symptomatic with some dizziness and was admitted to the hospital for further evaluation. Since being hospitalized she's had no further episodes of bleeding. Her hemoglobin is stable at 8.9. She denies any abdominal pain, nausea, or vomiting. She is tolerating a clear liquid diet and will be advanced this afternoon. Objective - Vital Signs Vital signs: Vital Signs Temp 97.8 F 01/05/21 04:55 Pulse 82 01/05/21 04:55 Resp 14 01/05/21 04:55 BP 98/59 01/05/21 04:55 Pulse Ox 97 01/05/21 04:55 Intake & Output 01/04/21 01/05/21 01/05/21 18:59 06:59 18:59 Intake Total 240 1100 Balance 240 1100 Intake: Intake, IV Titration 1100 Amount Lactated Ringers 1,000 ml 1100 @ 100 mls/hr IV .Q10H CLEMENTE Rx#:[id number] Oral 240 Other: # Voids 3 # Bowel Movements 0 - Exam General appearance: The patient is alert, oriented, appears in no acute distress. HET: Head is normocephalic and atraumatic. Conjunctiva pink. Sclera anicteric. Neck: Supple without lymphadenopathy. Abdomen: Soft, nontender, nondistended with bowel sounds. No guarding or rigidity. Extremities: Normal skin color and turgor. No pedal edema Skin: No rashes, no jaundice Neurological: No focal deficits. Alert and oriented 3. - Labs CBC & Chem 7: 01/05/21 07:09 01/05/21 07:09 Labs: Abnormal Lab Results - Last 24 Hours (Table) 01/04/21 01/05/21 01/05/21 Range/Units 17:29 07:09 07:09 RBC 2.60 L 2.71 L (3.80-5.40) m/uL Hgb 8.2 L 8.9 L (11.4-16.0) gm/dL Hct 24.3 L 25.2 L (34.0-46.0) % Sodium 135 L (137-145) mmol/L Assessment and Plan (1) Lower GI bleed Narrative/Plan: This is a patient who came in with acute post polypectomy lower gastrointestinal bleed. She had a colonoscopy on Saturday at [facility] was noted to have a 3 cm broad-based polyp proximal transverse colon that was removed in a piecemeal fashion followed by Endo Clip placement. She presented with multiple episodes of bright red blood per rectum that started Saturday afternoon and dropped her hemoglobin from 11.1-7.2. She's had no further bleeding yesterday or today. She is hemodynamically stable. Her repeat hemoglobin today is 8.9. Status: Acute Code(s): K92.2 - GASTROINTESTINAL HEMORRHAGE, UNSPECIFIED SNOMED Code(s): 71600956 Plan: 1. Supportive care 2. Advance to regular diet 3. Patient may be discharged home from a gastroenterology standpoint with follow-up for biopsy results Thank you for this consultation Dr. Ekaterina Jaimes I agree with the dictator's note, documented as a scribe by Jamila Bautista.
--- NOTE | 2021-01-06 17:49 | P.DS ---
Providers Date of admission: 01/03/21 18:41 Expected date of discharge: 01/05/21 Attending physician: Fernando Bridges Consults: 01/03/21 18:41 Consult Physician Urgent Consulting Provider: Jeaneth Jaimes Consult Reason/Comments: GI bleed Do you want consulting provider notified?: Yes [facility] Course: Chief Complaint: bleeding per rectum History of presenting complaint: This is a pleasant 70-year-old patient of Dr. Wei. Chronic stable medical conditions include hyperlipidemia, hypertension, hepatitis B. Patient underwent elective colonoscopy 2 days ago at [facility] as a part of screening for colorectal neoplasia. She was found over 3 cm broad placed polyp in the proximal transverse colon close to the ileocolic anastomosis. It was removed by piecemeal snare polypectomy followed which an Endo Clip was placed to prevent post-polypectomy bleed. She done well after procedure. Yesterday around no chills large amount of bright red blood per rectum followed by 3-4 more episodes last episode being on 3 PM yesterday. She became dizzy lightheaded tired decided to come to the ER.. Feels better this morning. No abdominal pain. No nausea vomiting. No abdominal pain. Today-has had no further blood per stool. No abdominal pain. Did tolerate a diet. Diet was advanced. Cleared by GI. Zestril held. Patient should take her blood pressure daily. Follow-up with PCP and GI. Discussion and discharge planning more than 35 minutes Consultation: Dr. Ekaterina Jaimes from GI Past medical history to include: Hypertension, hyperlipidemia, hepatitis B Social history: Denies history of smoking or alcohol. Son lives with her. Physical examination: VITAL SIGNS: 97.8, 82, 14, 98/59, 97% room air GENERAL: BMI 25.8, reclining in bed, comfortable. EYES: Pupils equal. Conjunctiva normal. HEENT: External appearance of nose and ears normal, oral cavity grossly normal. NECK: JVD not raised; masses not palpable. HEART: First and second heart sounds are normal; no edema. LUNGS: Respiratory rate normal; clear to auscultation. ABDOMEN: Soft, nontender, liver spleen not palpable, no masses palpable. PSYCH: Alert and oriented x3; mood and affect normal. INVESTIGATIONS, reviewed in the clinical context: March 18: Hemoglobin 8.9 potassium 3.7 WBC 5.2 hemoglobin 7.2 platelets 2.2 Potassium 2.8 replaced, repeat 3.9 sodium 129 EKG tracing personally reviewed by me-normal sinus rhythm Assessment and plan: -Acute GI bleed secondary to post-polypectomy from colon, last bleeding. 3 PM the day before presentation. No further bleeding. Stable -Acute GI blood loss anemia. -Severe hypokalemia. Replaced -Hyponatremia likely from increased water intake. -Hyperlipidemia, on Zocor -Essential hypertension, on Zestril, hold for now -Hypothyroid, continue Synthroid Disposition: Home Plan - Discharge Summary Discharge Rx Participant: No New Discharge Prescriptions: Continue Simvastatin [Zocor] 20 mg PO HS Levothyroxine Sodium [Synthroid] 88 mcg PO DAILY@0600 Discontinued lisinopriL [Zestril] 5 mg PO DAILY@1500 hydroCHLOROthiazide [Hydrodiuril] 50 mg PO DAILY@1500 Potassium Chloride 20 meq PO DAILY@1500 Discharge Medication List Levothyroxine Sodium [Synthroid] 88 mcg PO DAILY@0600 02/18/14 [History] Simvastatin [Zocor] 20 mg PO HS 02/18/14 [History] Follow up Appointment(s)/Referral(s): Roberto Wei MD [Primary Care Provider] - 01/17/21 2:40 pm Jeaneth Jaimes MD [Family Provider] - 01/25/21 4:30 pm Patient Instructions/Handouts: Gastrointestinal Bleeding (DC), Hypokalemia (DC) Activity/Diet/Wound Care/Special Instructions: CBC (lab-complete blood count) - have done in 3 days (see prescription) Daily blood pressure check in morning daily - keep log to show your doctor Discharge Disposition: HOME SELF-CARE
== END 2021-01-05 12:27 | disposition home or self-care (01) | DRG 920 ==
LOC: EC 16:34 → 4SSUR 18:41 → 5NMEDONC 20:17
PROVIDERS: ADMIT Hospitalist; ATTEND Hospitalist
DX: K91.840 Postprocedural hemorrhage of a digestive system organ or structure following a digestive system procedure (principal); E87.1 Hypo-osmolality and hyponatremia; D62 Acute posthemorrhagic anemia; K92.2 Gastrointestinal hemorrhage, unspecified; Z79.890 Hormone replacement therapy; E87.6 Hypokalemia; I10 Essential (primary) hypertension; Z86.010 Personal history of colon polyps; Y83.8 Other surgical procedures as the cause of abnormal reaction of the patient, or of later complication, without mention of misadventure at the time of the procedure; E03.9 Hypothyroidism, unspecified; E78.00 Pure hypercholesterolemia, unspecified; Z86.19 Personal history of other infectious and parasitic diseases
CPT/HCPCS: 36415; 80048; 80053; 84132; 84484; 85025; 85027; 85610; 85730; 86850; 86900; 86901; 93005

== ENCOUNTER → 2021-05-23 | Outpatient (CLI) | payer MEDICARE ==
--- NOTE | 2021-05-23 18:53 | BD ---
EXAMINATION TYPE: Axial Bone Density DATE OF EXAM: 05/23/2021 COMPARISON: 03/03/2019 CLINICAL HISTORY: Postmenopausal screening Height: 64 IN Weight: 159 LBS FRAX RISK QUESTIONS: Family History (Parent hip fracture): YES MOTHER Secondary Osteoporosis: 3. Menopause before 45: AGE 38 RISK FACTORS HISTORY OF: Family History of Osteoporosis: YES MOTHER AND AUNTS Active: YES Postmenopausal woman: AGE 38 MEDICATIONS: Thyroid Medications: YES Which medication: Levothyroxine How Lon+ YEARS Additional Medications: CALCIUM, VIT D, LEVOTHYROXINE, LISINOPRIL, SIMVASTATIN, POTASSIUM EXAM MEASUREMENTS: Bone mineral densitometry was performed using the [employer] System. Bone mineral density as measured about the Lumbar spine is: ----- L1-L4(G/cm2): 1.368 T Score Values are as follows: ----- L2: 0.8 ----- L3: 1.8 ----- L4: 3.1 ----- L1-L4: 1.6 Bone mineral density has: Increased 2.1% since study of: 03/03/2019 Bone mineral density about the R hip (g/cm2): 0.872 Bone mineral density about the L hip (g/cm2): 0.825 T Score values are as follows: -----R Neck: -1.5 -----L Neck: -0.9 -----R Total: -1.4 -----L Total: -1.1 Bone mineral density has: Decreased -4.9% since study of: 03/03/2019 IMPRESSION: Osteopenia (T Score between -2.5 and -1). There is slightly increased risk of fracture and the patient may be considered for treatment. Re-Screen 2-5 years. NOTE: T-SCORE=SD OF THE YOUNG ADULT MEAN.
--- NOTE | 2021-05-29 12:27 | MM ---
Reason for exam: screening (asymptomatic). Last mammogram was performed 6 months ago. History: Patient is postmenopausal. Benign excisional biopsy of the left breast. Physical Findings: A clinical breast exam by your physician is recommended on an annual basis and results should be correlated with mammographic findings. MG Screening Mammo w CAD Bilateral CC and MLO view(s) were taken. Prior study comparison: December 02, 2020, right breast MG diagnostic mammo RT w CAD. May 13, 2020, bilateral MG screening mammo w CAD. There are scattered fibroglandular densities. There are benign appearing round calcifications bilaterally. No significant changes when compared with prior studies. ASSESSMENT: Benign, BI-RAD 2 RECOMMENDATION: Routine screening mammogram of both breasts in 1 year.
== END | disposition home or self-care (01) ==
LOC: RADMAMWWP 09:05
PROVIDERS: ATTEND Family Medicine
DX: Z12.31 Encounter for screening mammogram for malignant neoplasm of breast (principal); Z13.820 Encounter for screening for osteoporosis; M85.89 Other specified disorders of bone density and structure, multiple sites; Z78.0 Asymptomatic menopausal state
CPT/HCPCS: 77067; 77080

== ENCOUNTER → 2023-07-05 | Outpatient (CLI) | payer MEDICARE ==
--- NOTE | 2023-07-05 13:38 | BD ---
EXAMINATION TYPE: Axial Bone Density DATE OF EXAM: 07/05/2023 CLINICAL HISTORY: 73 years old Female. ICD-10 CODE: M89.9 disorder of bone Height: 64 Weight: 170.2 FRAX RISK QUESTIONS: Alcohol (3 or more units per day): no Family History (Parent hip fracture): mother Glucocorticoids (More than 3mos): no History of Fracture in Adulthood: yes Secondary Osteoporosis: 1. Type 1 Diabetes: no 2. Hyperthyroidism: no 3. Menopause before 45: no 4. Malnutrition: no 5. Chronic liver disease: no Rheumatoid Arthritis: no Current Tobacco Use: no RISK FACTORS HISTORY OF: Hip Fracture (Right/Left): no Spine Fracture: no History of Wrist Fracture: no Surgery to Spine/Hip(right/left)/Wrist (right/left): no Family History of Osteoporosis: mother, maternal aunts x4, maternal cousins x6 Active: yes Diet low in dairy products/other sources of calcium: no Postmenopausal woman: yes Take estrogen and/or progesterone medications: no Lost more than 2 inches in height since high school: no Frequent falls: no Poor Health: no Hyperparathyroidism: no Adrenal Insufficiency: no MEDICATIONS: Prednisone or other steroids: no Thyroid Medications: Levothyroxin How Long: since 1997 Osteoporosis Medications: no Additional Medications: Cholesterol Meds, BP Meds, Potassium, Additional History: EXAM MEASUREMENTS: Bone mineral densitometry was performed using the [employer] System. Bone mineral density as measured about the Lumbar spine is: ----- L1-L4(G/cm2): 1.371 T Score Values are as follows: ----- L1: -0.5 ----- L2: 0.6 ----- L3: 1.9 ----- L4: 3.5 ----- L1-L4: 1.6 Z Score Values are as follows: ----- L1: 0.8 ----- L2: 1.9 ----- L3: 3.3 ----- L4: 4.8 ----- L1-L4: 2.9 Bone mineral density has: increased 0.2 % since study of: 05/23/2021 Bone mineral density about the R hip (g/cm2): 0.853 Bone mineral density about the L hip (g/cm2): 0.883 T Score values are as follows: -----R Neck: -1.0 -----L Neck: -0.6 -----R Total: -1.2 -----L Total: -1.0 Z Score values are as follows: -----R Neck: 0.7 -----L Neck: 1.1 -----R Total: 0.2 -----L Total: 0.4 Bone mineral density has: INCREASED 2.0 % since study of: 05/23/2021 FRAX%s: The graph provided illustrates a 21.7% chance for a major osteoporotic fx and a 8.6% chance f or the hips probability for fx in 10 years time. IMPRESSION: Normal (Values between +1 and -1 indicate normal bone mass). Consider repeating this study in 5 year s or sooner if there is some new clinical indication. NOTE: T-SCORE=SD OF THE YOUNG ADULT MEAN.
--- NOTE | 2023-07-08 10:27 | MM ---
Reason for Exam: Screening (asymptomatic). Last mammogram was performed 1 year(s) and 1 month(s) ago. Patient History: Menarche at age 9. First Full-Term at age 27. Postmenopausal. Benign Excisional Biopsy on the left side. Maternal cousin had ovarian cancer at or over age 50. Maternal cousin had breast cancer at or over age 50. Risk Values: Jillian 5 year model risk: 2.5%. NCI Lifetime model risk: 5.5%. Prior Study Comparison: 02/27/2018 Bilateral Screening Mammogram, [facility]. 03/03/2019 Bilateral Screening Mammogram, [facility]. 05/13/2020 Bilateral Screening Mammogram, [facility]. 05/24/2020 Right Diagnostic Mammogram, [facility]. 12/02/2020 Right Diagnostic Mammogram, [facility]. 05/23/2021 Bilateral Screening Mammogram, [facility]. 06/08/2022 Bilateral MG screening mammo w CAD, [facility]. Tissue Density: There are scattered fibroglandular densities. Findings: Analyzed By CAD. There is no suspicious group of microcalcifications or new suspicious mass. Benign-appearing calcifications bilaterally. Overall Assessment: Benign, BI-RAD 2 Management: Screening Mammogram of both breasts in [address] [facility] will attempt to contact patient to return for supplemental views and ultrasound if indicated. Patient should continue monthly self-breast exams. A clinical breast exam by your physician is recommended on an annual basis. This exam should not preclude additional follow-up of suspicious palpable abnormalities. Note on Jillian scores and lifetime risk: 1. A Jillian score greater than 3% is considered moderate risk. If this is the case, consider specialist referral to assess eligibility for a risk reducing agent. 2. If overall lifetime risk for the development of breast cancer is 20% or higher, the patient may qualify for future screening with alternating mammogram and breast MRI. Electronically signed and approved by: Jarad Petersen DO
== END | disposition home or self-care (01) ==
LOC: RADBDWWP 10:42
PROVIDERS: ATTEND Family Medicine
DX: Z12.31 Encounter for screening mammogram for malignant neoplasm of breast (principal); M85.851 Other specified disorders of bone density and structure, right thigh; Z78.0 Asymptomatic menopausal state; Z80.3 Family history of malignant neoplasm of breast
CPT/HCPCS: 77067; 77080

== ENCOUNTER → 2024-07-10 | Outpatient (CLI) | payer MEDICARE ==
--- NOTE | 2024-07-15 08:36 | MM ---
Reason for Exam: Screening (asymptomatic). Last screening mammogram was performed 12 month(s) ago. Patient History: Menarche at age 9. First Full-Term at age 27. Postmenopausal. Benign Excisional Biopsy on the left side. Maternal cousin had ovarian cancer at or over age 50. Maternal cousin had breast cancer at or over age 50. Risk Values: Jillian 5 year model risk: 2.5%. NCI Lifetime model risk: 5.1%. Prior Study Comparison: 05/23/2021 Bilateral Screening Mammogram, [facility]. 06/08/2022 Bilateral MG screening mammo w CAD, [facility]. 07/05/2023 Bilateral MG screening mammo w CAD, [facility]. Tissue Density: The breasts are heterogeneously dense, which may obscure small masses. Findings: Analyzed By CAD. There is no suspicious group of microcalcifications or new suspicious mass in either breast. Benign appearing calcifications. Overall Assessment: Benign, BI-RAD 2 Management: Screening Mammogram of both breasts in 1 year. . Patient should continue monthly self-breast exams. A clinical breast exam by your physician is recommended on an annual basis. This exam should not preclude additional follow-up of suspicious palpable abnormalities. Note on Jillian scores and lifetime risk: 1. A Jillian score greater than 3% is considered moderate risk. If this is the case, consider specialist referral to assess eligibility for a risk reducing agent. 2. If overall lifetime risk for the development of breast cancer is 20% or higher, the patient may qualify for future screening with alternating mammogram and breast MRI. [facility], , 07/15/2024 8:34 AM. Electronically signed and approved by: Celio Garcia M.D. Radiologis
== END | disposition home or self-care (01) ==
LOC: RADMAMWWP 10:43
PROVIDERS: ATTEND Family Medicine
DX: Z12.31 Encounter for screening mammogram for malignant neoplasm of breast
CPT/HCPCS: 77063; 77067